=== PATIENT | female | born 1955 | race Caucasian/White ===

== ENCOUNTER 2023-02-21 07:59 | Inpatient (IN) ==
[2023-02-21] MEDS ORDERED: IOVERSOL 350 MG 125mL Prefilled Syringe IV ONE (08:15)
--- NOTE | 2023-02-21 08:22 | Emergency Department Note ---
Impression & Plan Seizure, End-stage renal disease on hemodialysis, Chronic respiratory failure with hypoxia, Acute metabolic encephalopathy, Stroke-like symptoms, Paroxysmal A-fib ED Provider Note NAME: JOVANI JOSEPH AGE: 67 SEX: F ARRIVES VIA: Ambulance INFORMANT: Patient ED PROVIDER(S): Stephen Villanueva MD CHIEF COMPLAINT: Strokelike symptoms PLAN: Disposition: Admit MEDICAL DECISION MAKING: The patient is a 67-year-old woman with a past medical history of end-stage renal disease on hemodialysis, history of paroxysmal atrial fibrillation not on anticoagulation secondary to history of GI bleeding per records, COPD, JULIETH, chronic respiratory failure with hypoxia who presents to the emergency department via EMS for stroke alert for acute onset change in mental status at her rehab facility at [facility]. The patient presents in the setting of having been admitted and discharged from [facility] for treatment of pneumonia. The patient had been progressing well and was considered for discharge from her rehab soon. I had discussed the case with [facility] provider Dr. Bustamante and staff had reported that the patient was last known well at approximately 5 AM when per forming morning rounds and took her medication but upon OT/PT evaluation at 0610 they noticed that the patient had slurred speech and generalized weakness from her baseline. He confirmed that the patient is not on chronic anticoagulation for atrial fibrillation but was receiving DVT prophylaxis with subcu heparin and did receive her dose this morning. Given the patient's acute neurologic change, stroke alert was activated prior to arrival. Staff report that the patient's baseline is normally alert and oriented able to converse normally but is always a max assist out of bed and with ADLs. Patient has not missed dialysis but was due to have dialysis today. Upon EMS arrival it was believed that the patient's neurologic status had improved/resolved but then a seizure like episode occurred lasting approximately 1 minute after which she appeared somnolent but was awake. Patient arrived to the emergency department was taken immediately to CT per stroke alert protocols and CT of the head and CTA of the head and neck were performed. The patient arrived to the critical care bay, with axillary temperature 35.9, RR mid 20s, BP 140s/80s, O2 98% on 2L NC. The patient was was awake but altered exhibiting both expressive and receptive aphasia and did not appear to be able to follow commands. She would repeatedly attempt to say her name to this provider's questions. She exhibits 0-1/5 strength of left upper extremity with 2/5 strength of right upper extremity and 1/5 strength of bila teral lower extremities. She will direct her gaze appropriately when spoken to. The patient's case was reviewed with [facility] telestroke neurology, Dr Brito. However just prior to telestroke evaluation via telestroke terminal the patient did have a 1 minute tonic-clonic seizure-like episode where O2 saturation transiently decreased to the 70s improving to 90s with 100% O2 via nonrebreather. She was given 1 mg of IV Ativan and 2 g of IV Keppra load ordered and administered. CT of the head negative for ICH or ischemia. Motion degradation is noted. High-grade stenosis of the cavernous segment of left ICA within the left petrous segment is seen. Dr. Castillo was able to visualize the patient following her seizure-like episode the limited given increased somnolence related to postictal state and administration of IV Ativan. Appreciate recommendations and agrees with Keppra load. Further recommends MRI of the brain in addition to lumbar puncture given the patient's recent hospitalization for pneumonia. Given the patient's morbidly obese body habitus in the setting of concern for bleeding risk related to her end-stage renal disease on hemodialysis and having received prophylactic heparin this morning ED LP deferred, as patient would benefit from fluoroscopic LP with radiology in the setting. Otherwise, blood cultures obtained and pending. EKG without overt acute ischemia and appears similar to prior from [facility] records. Chest x-ray with vascular congestion on initial history of thickening. WBC 16.7K with neutrophil predominance though no left shift. H/H 11/35.6 without recent values for comparison. Platelets within normal limits. ABG was obtained after the patient's seizure emergency department and demonstrates a PCO2 of 54 with a pH of 7.32. PO2 on 2 L nasal cannula was 76. Chemistry without metabolic acidosis with bicarbonate of 29. Creatinine 4.5 in the se tting of patient's known end-stage renal disease on hemodialysis. Potassium 5.3. Initial lactic acid 2.7. High-sensitivity troponin 16.2, nonspecific. Procalcitonin is nonelevated. TSH within normal limits. Case was discussed with Fouzia Montoya, [facility] PAC, with Dr. Oleary, [facility] hospitalist who will evaluate the patient for admission. Of note, initial axillary temperature on arrival was 35.9 however upon repeat with rectal temperature again 35.9, hypothermic, and so nursing instructed to place warming blanket/bear hugger. On my reevaluation the patient remains somnolent however the patient did open her eyes to voice when her name was called and replied, "yeah". When asked to name she did say, "Jovani", but again closes her eyes. Admitting team updated. Further management per admitting team. Triage Nursing notes reviewed and agree them. Prior/outside medical records reviewed Vital Signs: reviewed Differential diagnosis: Infection, dehydration, metabolic abnormality, hypo/hyperglycemia, electrolyte disturbance, anemia, hypoxia, cardiac sources, intracerebral event, toxicologic, neurologic, as well as other pathologies. ER treatment provided: See below. Diagnostics interpreted by me: Cardiac Monitoring: An order for continuous cardiac monitoring was placed and demonstrated NSR, 83 bpm, no ectopy. Laboratory studies: See below Imaging studies: See below Consultation(s): Dr. Brito, [facility] telestroke neurology. Fouzia Montoya [facility] PAC, with Dr. Oleary, [facility] hospitalist HPI: The patient is a 67-year-old woman with a past medical history of end-stage renal disease on hemodialysis, history of paroxysmal atrial fibrillation not on anticoagulation secondary to history of GI bleeding per records, COPD, JULIETH, chronic respiratory failure with hypoxia who presents to the emergency department via EMS for stroke alert for acute onset change in mental status at her rehab facility at [facility]. The patient presents in the setting of having been admitted and discharged from [facility] [address] for treatment of pneumonia. The patient had been progressing well and was considered for discharge from her rehab soon. I had discussed the case with [facility] provider Dr. Bustamante and staff had reported that the patient was last known well at approximately 5 AM when performing morning rounds and took her medication but upon OT/PT evaluation at 0610 they noticed that the patient had slurred speech and generalized weakness from her baseline. He confirmed that the patient is not on chronic anticoagu lation for atrial fibrillation but was receiving DVT prophylaxis with subcu heparin and did receive her dose this morning. Given the patient's acute neurologic change, stroke alert was activated prior to arrival. Staff report that the patient's baseline is normally alert and oriented able to converse normally but is always a max assist out of bed and with ADLs. Patient has not missed dialysis but was due to have dialysis today. Upon EMS arrival it was believed that the patient's neurologic status had improved/resolved but then a seizure like episode occurred lasting approximately 1 minute after which she appeared somnolent but was awake. ROS: See above HPI for pertinent positives & negatives. A total of 10 systems reviewed and were otherwise negative. VITALS:See Below PHYSICAL EXAMINATION: GENERAL: Awake, alert, ill-appearing HENT: Normocephalic, atraumatic. Oropharynx unremarkable. EYES: Normal conjunctiva. Sclera non-icteric. NECK: Supple. No nuchal rigidity. FROM. No JVD. RESPIRATORY: Diminished at bases with underlying wheeze. CARDIAC: Regular rate, normal rhythm. Extremities warm and well perfused. Pulses equal. LUE AV fistula with palpable thrill. ABDOMEN: Soft, non-distended. No tenderness to palpation. No rebound or guarding. No masses. RECTAL: Deferred. MUSCULOSKELETAL: Chest examination reveals no tenderness. The back is symmetrical on inspection without obvious abnormality. There is no CVA tenderness to palpation. No joint edema. LOWER EXTREMITIES: Calves are equal size bilaterally and non-tender. 2+ BLE edema. No discoloration. NEURO: Awake but altered exhibiting both expressive and receptive aphasia and did not appear to be able to follow commands. She would repeatedly attempt to say her name to this provider's questions. She exhibits 0-1/5 strength of left upper extremity with 2/5 strength of right upper extremity and 1/5 strength of bilateral lower extremities. She will direct her gaze appropriately when spoken to. SKIN: No rash or jaundice noted. Diffuse areas of ecchymosis of bilateral upper extremities. ED COURSE: Critical Care: I have personally spent greater than 55 minutes of critical care time in the direct management of this patient. This includes bedside care, interpretation of diagnostic studies, and testing, discussion with consultants, patient, and family members, and other required patient management activities. This 55 minutes is in excess of all separately billable procedures. Stephen Villanueva MD Past Med/Surg History Medical History Anemia Anemia of chronic disease Asthma not well controlled per pt Atrial fibrillation dx 8-10 yrs ago > follows with Cardio at [facility] [address] > no pacer > med controlled > takes Heparin during dialysis only AV fistula left arm C. difficile diarrhea Calciphylaxis left breast since 08/2021 following with [facility]. patient is to f radhajosselyn up with a surgeon at [facility] 06/20/22. Chronic obstructive pulmonary disease Chronic respiratory failure with hypoxia COPD (chronic obstructive pulmonary disease) Diabetes mellitus, type 2 Diabetic neuropathy Diabetic retinopathy Dialysis patient S/M/W/F > home dialysis Dislocated shoulder right > has had for approx 3 yrs, cannot have general anesthesia due to respiratory conditions Dislocation of right shoulder joint DM II (diabetes mellitus, type II), controlled End-stage renal disease on hemodialysis ESRD (end stage renal disease) follows with Dr. Sanchez with [facility], has been on hemodialysis approx 5 years Generalized weakness GERD (gastroesophageal reflux disease) GERD (gastroesophageal reflux disease) History of anesthesia reaction cannot have general anesthesia due to respiratory conditions History of blood clots left foot > approx 3 yrs ago > no known cause History of COVID-19 January 18, 2022 > tested at [facility] > breathing difficulty, pulse ox 72%, > hospitalized for 5 days > no residual effects History of GI bleed approx 1 year ago History of hypotension midodrine BID. HLD (hyperlipidemia) Humeral surgical neck fracture Hx of Clostridium difficile infection over 3 yrs ago [facility] Hyperlipidemia IBS (irritable bowel syndrome) Iron deficiency Obesity hypoventilation syndrome On home oxygen therapy 4 LPM continuous JULIETH (obstructive sleep apnea) Paroxysmal A-fib Pericardial effusion hx of approx 1 year ago, had drain, [place] Peripheral vascular disease Restrictive lung disease Seizure Sleep apnea Bi Pap TIA (transient ischemic attack) hx of approx 15 yrs ago > no residual effects Surgical History Amputation of left great toe AVF (arteriovenous fistula) H/O Spinal surgery History of arthroscopy left knee History of bilateral tubal ligation History of bronchoscopy History of carpal tunnel release right History of cataract surgery left History of colonoscopy History of endoscopic sinus surgery History of esophagogastroduodenoscopy (EGD) History of lumbar surgery Hx of colonoscopy Hx of sinus surgery Hx of tubal ligation Family History Mother Diabetes Father Diabetes Other Family history non-contributory No family history of adverse response to anesthesia Social History Smoking Status: Former smoker Tobacco Type: Cigarettes Cigarettes Per Day: 6 cigs per day; Second Hand Exposure: No; Do You Dip or Chew Tobacco: No; Hx Alcohol Use: No Hx Substance Use: No Preferred Language: Bolivian Communication Ability: Effective Help Desk Technician Required: No Beliefs That Will Affect Care: None Current Living Situation: Spouse Feels Safe at Home: Yes Assistive Devices: BiPap, Denture - Upper, Glasses, Oxygen - Continuous and Wheelchair Allergies Allergies Allergy/AdvReac Type Severity Reaction Status Date / Time moxifloxacin [From Avelox] Allergy Severe Shakiness Verified 02/21/23 15:40 lisinopril Allergy Intermediate facial Verified 02/21/23 15:40 swelling metformin [From Glucophage] Allergy Intermediate Rash Verified 02/21/23 15:40 avelox Allergy Unknown Uncoded 02/21/23 15:40 glucophage Allergy Unknown Uncoded 02/21/23 15:40 lisinopril Allergy Unknown Uncoded 02/21/23 15:40 Home Meds Home Medications Medication Instructions Recorded Confirmed albuterol sulfate 2.5 mg/0.5 mL 2.5 mg inhalation TID PRN Wheezing 04/17/22 08/03/22 solution for nebulization benzonatate 100 mg capsule 100 mg PO BID 04/17/22 08/03/22 levalbuterol tartrate 45 2 inh inhalation Q6H 04/17/22 08/03/22 mcg/actuation aerosol inhaler (Xopenex HFA) rosuvastatin 10 mg tablet (Crestor) 10 mg PO PM 04/17/22 08/03/22 vitamin B complex and vitamin C 1 cap PO QAM 04/17/22 08/03/22 no.20-folic acid 1 mg capsule Milk of Magnesia 30 ml PO DAILY PRN Constipation 02/21/23 02/21/23 Saccharomyces boulardii 250 mg 250 mg PO BID 02/21/23 02/21/23 capsule acetylcysteine 600 mg capsule 600 mg PO DAILY 02/21/23 02/21/23 allopurinol 100 mg tablet 100 mg PO Q2D 02/21/23 02/21/23 (Zyloprim) atorvastatin 20 mg tablet 20 mg PO PM 02/21/23 02/21/23 bisacodyl 10 mg rectal suppository 10 mg DC DAILY PRN Constipation 02/21/23 02/21/23 calcitriol 0.25 mcg capsule 0.25 mcg PO UD 02/21/23 02/21/23 darbepoetin ulises in polysorbat 40 40 mcg subcut Q7D 02/21/23 02/21/23 mcg/0.4 mL in polysorbate injection syringe dextrose 50 % in water (D50W) 0 mg IV DIRECTED PRN 02/21/23 02/21/23 Hypoglycemia dextrose 50 % in water (D50W) 25 ml IV DIRECTED PRN 02/21/23 02/21/23 Hypoglycemia dextrose 50 % in water (D50W) 50 ml IV DIRECTED PRN 02/21/23 02/21/23 Hypoglycemia docusate sodium 100 mg capsule 100 mg PO BID 02/21/23 02/21/23 doxycycline hyclate 100 mg capsule 100 mg PO BID 02/21/23 02/21/23 dulaglutide 0.75 mg/0.5 mL 0.75 mg subcut WK 02/21/23 02/21/23 subcutaneous pen injector ([facility]) fluticasone fur. 100 mcg-umeclid 1 inh inhalation DAILY 02/21/23 02/21/23 62.5 mcg-vilant 25 mcg inhalat.powder (Trelegy Ellipta) glucagon 1 mg INJ DIRECTED PRN 02/21/23 02/21/23 Hypoglycemia heparin (porcine) 7,500 unit/mL 7,500 unit Q12H 02/21/23 02/21/23 injection syringe insulin glargine 100 unit/mL 12 unit subcut QAM 02/21/23 02/21/23 subcutaneous solution (Lantus U-100 Insulin) loperamide 2 mg capsule 4 mg PO BID PRN Loose Stool 02/21/23 02/21/23 metoprolol succinate 25 mg 12.5 mg PO Q12H 02/21/23 02/21/23 tablet,extended release 24 hr midodrine 5 mg tablet 10 mg PO TID 02/21/23 02/21/23 montelukast 10 mg tablet 10 mg PO DAILY 02/21/23 02/21/23 multivitamin 1 tab PO DAILY 02/21/23 02/21/23 ondansetron 4 mg disintegrating 4 mg PO Q4H PRN NAUSEA 02/21/23 02/21/23 tablet pantoprazole 20 mg tablet,delayed 20 mg PO DAILY 02/21/23 02/21/23 release polyethylene glycol 3350 17 17 g PO DIRECTED PRN CONSTI 02/21/23 02/21/23 gram/dose oral powder (Miralax) prednisone 10 mg tablet 10 mg PO DAILY 02/21/23 02/21/23 pregabalin 25 mg capsule 25 mg PO DAILY 02/21/23 02/21/23 propafenone 150 mg tablet 150 mg PO Q12H 02/21/23 02/21/23 roflumilast 500 mcg tablet 500 mcg PO DAILY 02/21/23 02/21/23 ropinirole 0.25 mg tablet 0.25 mg PO BID 02/21/23 02/21/23 sennosides 8.6 mg-docusate sodium 1 tab PO USEASDIRECTD PRN 02/21/23 02/21/23 50 mg tablet (Senokot-S) Constipation sodium chloride 0.9 % 0 ml IV DIRECTED 02/21/23 02/21/23 sodium chloride 0.9 % 0 ml IV DIRECTED 02/21/23 02/21/23 sodium chloride 0.9 % 1,000 ml IV DAILY PRN OTHER 02/21/23 02/21/23 sodium phosphates 19 gram-7 133 ml DC DAILY PRN Constipation 02/21/23 02/21/23 gram/118 mL enema (Fleet Enema) vancomycin 125 mg capsule 125 mg PO DAILY 02/21/23 02/21/23 Results & Data (ED) Vital Signs Vital Signs - 24 hr 02/21/23 08:24 02/21/23 07:47 02/21/23 08:35 Temperature 35.9 C L Temperature Source Axillary Pulse Rate 83 88 Pulse Rate from SpO2 Sensor Respiratory Rate 26 H Blood Pressure 149/84 H Blood Pressure Mean 105 Pulse Oximetry 98 56 L Oxygen Delivery Method Nasal Cannula Nasal Cannula Non-rebreather Oxygen Flow Rate 2 2 Sepsis Recent Fever Within 48 Hours No Sepsis New/Unexplained Change in Mental Status No Sepsis Action Taken by Nursing Physician Notified Oxygen Flow Rate - Titration 15 Pulse Oximetry Post Tiitration 98 02/21/23 09:25 02/21/23 08:19 02/21/23 08:30 Temperature Temperature Source Pulse Rate 84 80 Pulse Rate from SpO2 Sensor 85 80 Respiratory Rate 19 24 Blood Pressure Blood Pressure Mean Pulse Oximetry 100 95 96 Oxygen Delivery Method Nasal Cannula Non-rebreather Oxygen Flow Rate 15 2 2 Sepsis Recent Fever Within 48 Hours Sepsis New/Unexplained Change in Mental Status Sepsis Action Taken by Nursing Oxygen Flow Rate - Titration 6 Pulse Oximetry Post Tiitration 96 02/21/23 08:44 02/21/23 08:44 02/21/23 08:45 Temperature Temperature Source Pulse Rate 109 H 97 H Pulse Rate from SpO2 Sensor 109 H 108 H Respiratory Rate 21 18 Blood Pressure 161/88 H Blood Pressure Mean 112 Pulse Oximetry 98 99 Oxygen Delivery Method Oxygen Flow Rate 15 15 Sepsis Recent Fever Within 48 Hours Sepsis New/Unexplained Change in Mental Status Sepsis Action Taken by Nursing Oxygen Flow Rate - Titration Pulse Oximetry Post Tiitration 02/21/23 09:00 02/21/23 09:01 02/21/23 09:01 Temperature Temperature Source Pulse Rate 92 H 88 Pulse Rate from SpO2 Sensor 92 H 87 Respiratory Rate 18 16 Blood Pressure 140/67 Blood Pressure Mean 91 Pulse Oximetry 100 100 Oxygen Delivery Method Oxygen Flow Rate 15 15 Sepsis Recent Fever Within 48 Hours Sepsis New/Unexplained Change in Mental Status Sepsis Action Taken by Nursing Oxygen Flow Rate - Titration Pulse Oximetry Post Tiitration 02/21/23 09:15 02/21/23 09:15 02/21/23 09:30 Temperature Temperature Source Pulse Rate 84 Pulse Rate from SpO2 Sensor 84 Respiratory Rate 16 Blood Pressure 151/58 H 153/53 H Blood Pressure Mean 89 86 Pulse Oximetry 100 Oxygen Delivery Method Oxygen Flow Rate 6 Sepsis Recent Fever Within 48 Hours Sepsis New/Unexplained Change in Mental Status Sepsis Action Taken by Nursing Oxygen Flow Rate - Titration Pulse Oximetry Post Tiitration 02/21/23 09:30 02/21/23 09:45 02/21/23 09:45 Temperature Temperature Source Pulse Rate 83 85 Pulse Rate from SpO2 Sensor 83 87 Respiratory Rate 16 17 Blood Pressure 107/72 Blood Pressure Mean 83 Pulse Oximetry 100 97 Oxygen Delivery Method Oxygen Flow Rate 2 2 Sepsis Recent Fever Within 48 Hours Sepsis New/Unexplained Change in Mental Status Sepsis Action Taken by Nursing Oxygen Flow Rate - Titration Pulse Oximetry Post Tiitration 02/21/23 10:00 02/21/23 10:01 02/21/23 10:01 Temperature Temperature Source Pulse Rate 84 86 Pulse Rate from SpO2 Sensor 84 87 Respiratory Rate 15 17 Blood Pressure 163/66 H Blood Pressure Mean 98 Pulse Oximetry 98 94 Oxygen Delivery Method Oxygen Flow Rate 2 2 Sepsis Recent Fever Within 48 Hours Sepsis New/Unexplained Change in Mental Status Sepsis Action Taken by Nursing Oxygen Flow Rate - Titration Pulse Oximetry Post Tiitration Laboratory Data Attestation: I reviewed the patient's lab results. 02/21/23 17:08 02/21/23 17:08 Lab Results 02/21/23 02/21/23 02/21/23 Range/Units 08:16 08:16 08:16 WBC 16.71 H (4.8-10.8) K/ul RBC 3.83 L (4.20-5.40) M/uL Hgb 11.0 L (12.0-16.0) g/dl POC Hgb (12.0-16.0) g/dl Hct 35.6 L (37.0-47.0) % POC Hct (37-47) % MCV 93.0 (80.0-100.0) fL MCH 28.7 (25.0-34.0) pg MCHC 30.9 L (32.0-36.0) g/dL RDW Std Deviation 63.8 H (36.4-46.3) fL RDW Coeff of Sagrario 19.0 H (11.5-14.5) % Plt Count 202 (130-400) K/uL MPV 11.6 (9.4-12.4) fL Immature Gran % (Auto) 0.9 % Neut % (Auto) 71.5 % Lymph % (Auto) 20.2 % Ford % (Auto) 6.8 % Eos % (Auto) 0.4 % Baso % (Auto) 0.2 % Neut # (Auto) 11.96 H (1.40-6.50) K/uL Lymph # (Auto) 3.37 (1.2-3.4) K/uL Ford # (Auto) 1.13 H (0.11-0.59) K/uL Eos # (Auto) 0.07 (0-0.50) K/uL Baso # (Auto) 0.03 (0-0.2) K/uL Immature Gran # (Auto) 0.15 (0.01-0.20) K/uL PT 11.1 (9.0-12.0) Seconds INR 1.0 (0.9-1.1) APTT 35.6 H (21.0-31.0) Seconds PTT Ratio 1.3 ABG pH (7.35-7.45) ABG pCO2 (35-46) mmHg ABG pO2 (80-95) mmHg ABG HCO3 (19-24) mmol/L ABG O2 Saturation (90-95) % ABG Base Excess (-9-1.8) mEq/L Dmitry Test (Pos) Oxygen Given POC Sodium (135-144) mmol/L Sodium 136 (136-145) mmol/L POC Potassium (3.3-5.0) mmol/L Potassium 5.3 H (3.5-5.1) mmol/L POC Chloride (101-112) mmol/L Chloride 98 (98-107) mmol/L Carbon Dioxide 29 (21-32) mmol/L POC Total CO2 (24-31) mmol/L Anion Gap 9 (3-11) POC Anion Gap (16-25) mmol/L POC BUN (7-18) mg/dl BUN 33 H (6-23) mg/dl Creatinine 4.55 H* (0.6-1.2) mg/dl POC Creatinine (0.6-1.3) mg/dl Est Cr Clr Drug Dosing Not Reportable Est GFR ( Amer) 10.8 ml/min Est GFR (Non-Af Amer) 9.3 ml/min BUN/Creatinine Ratio 7.3 L (10-20) Glucose 108 H (70-99(Fasting)) mg/dl POC Glucose (other) (70-99) mg/dl Lactate (0.4-2.0) mmol/L Calcium 9.4 (8.6-10.3) mg/dl POC Ioniz Calcium Leann (1.12-1.32) mmol/l Phosphorus 5.3 H (2.5-4.9) mg/dl Magnesium 1.4 L (1.7-2.4) mg/dl Total Bilirubin 0.6 (0.2-1.0) mg/dl AST 15 (13-39) U/L ALT 16 (7-52) U/L Alkaline Phosphatase 60 (34-104) U/L Troponin I High Sens 16.2 H (0-14) pg/ml Total Protein 5.4 L (6.0-8.3) gm/dl Albumin 3.4 (3.4-5.0) gm/dl Globulin 2.0 L (2.5-4.0) gm/dl Albumin/Globulin Ratio 1.7 (0.9-2) Vitamin B12 (180-914) pg/ml Procalcitonin (0-0.5) ng/ml TSH (0.300-4.500) uIu/ml Lyme Disease IgG Ab (Negative) Lyme Disease IgM Ab (Negative) 02/21/23 02/21/23 02/21/23 Range/Units 08:32 08:32 08:33 WBC (4.8-10.8) K/ul RBC (4.20-5.40) M/uL Hgb (12.0-16.0) g/dl POC Hgb 12.2 (12.0-16.0) g/dl Hct (37.0-47.0) % POC Hct 36 L (37-47) % MCV (80.0-100.0) fL MCH (25.0-34.0) pg MCHC (32.0-36.0) g/dL RDW Std Deviation (36.4-46.3) fL RDW Coeff of Sagrario (11.5-14.5) % Plt Count (130-400) K/uL MPV (9.4-12.4) fL Immature Gran % (Auto) % Neut % (Auto) % Lymph % (Auto) % Ford % (Auto) % Eos % (Auto) % Baso % (Auto) % Neut # (Auto) (1.40-6.50) K/uL Lymph # (Auto) (1.2-3.4) K/uL Ford # (Auto) (0.11-0.59) K/uL Eos # (Auto) (0-0.50) K/uL Baso # (Auto) (0-0.2) K/uL Immature Gran # (Auto) (0.01-0.20) K/uL PT (9.0-12.0) Seconds INR (0.9-1.1) APTT (21.0-31.0) Seconds PTT Ratio ABG pH (7.35-7.45) ABG pCO2 (35-46) mmHg ABG pO2 (80-95) mmHg ABG HCO3 (19-24) mmol/L ABG O2 Saturation (90-95) % ABG Base Excess (-9-1.8) mEq/L Dmitry Test (Pos) Oxygen Given POC Sodium 133 L (135-144) mmol/L Sodium (136-145) mmol/L POC Potassium 5.6 H (3.3-5.0) mmol/L Potassium (3.5-5.1) mmol/L POC Chloride 99 L (101-112) mmol/L Chloride (98-107) mmol/L Carbon Dioxide (21-32) mmol/L POC Total CO2 26 (24-31) mmol/L Anion Gap (3-11) POC Anion Gap 14.0 L (16-25) mmol/L POC BUN 36 H (7-18) mg/dl BUN (6-23) mg/dl Creatinine (0.6-1.2) mg/dl POC Creatinine 4.7 H* (0.6-1.3) mg/dl Est Cr Clr Drug Dosing Est GFR ( Amer) ml/min Est GFR (Non-Af Amer) ml/min BUN/Creatinine Ratio (10-20) Glucose (70-99(Fasting)) mg/dl POC Glucose (other) 101 H (70-99) mg/dl Lactate (0.4-2.0) mmol/L Calcium (8.6-10.3) mg/dl POC Ioniz Calcium Leann 1.09 L (1.12-1.32) mmol/l Phosphorus (2.5-4.9) mg/dl Magnesium (1.7-2.4) mg/dl Total Bilirubin (0.2-1.0) mg/dl AST (13-39) U/L ALT (7-52) U/L Alkaline Phosphatase (34-104) U/L Troponin I High Sens (0-14) pg/ml Total Protein (6.0-8.3) gm/dl Albumin (3.4-5.0) gm/dl Globulin (2.5-4.0) gm/dl Albumin/Globulin Ratio (0.9-2) Vitamin B12 (180-914) pg/ml Procalcitonin 0.32 (0-0.5) ng/ml TSH (0.300-4.500) uIu/ml Lyme Disease IgG Ab Negative Cancelled (Negative) Lyme Disease IgM Ab Negative Cancelled (Negative) 02/21/23 02/21/23 02/21/23 Range/Units 08:51 08:51 09:51 WBC (4.8-10.8) K/ul RBC (4.20-5.40) M/uL Hgb (12.0-16.0) g/dl POC Hgb (12.0-16.0) g/dl Hct (37.0-47.0) % POC Hct (37-47) % MCV (80.0-100.0) fL MCH (25.0-34.0) pg MCHC (32.0-36.0) g/dL RDW Std Deviation (36.4-46.3) fL RDW Coeff of Sagrario (11.5-14.5) % Plt Count (130-400) K/uL MPV (9.4-12.4) fL Immature Gran % (Auto) % Neut % (Auto) % Lymph % (Auto) % Ford % (Auto) % Eos % (Auto) % Baso % (Auto) % Neut # (Auto) (1.40-6.50) K/uL Lymph # (Auto) (1.2-3.4) K/uL Ford # (Auto) (0.11-0.59) K/uL Eos # (Auto) (0-0.50) K/uL Baso # (Auto) (0-0.2) K/uL Immature Gran # (Auto) (0.01-0.20) K/uL PT (9.0-12.0) Seconds INR (0.9-1.1) APTT (21.0-31.0) Seconds PTT Ratio ABG pH (7.35-7.45) ABG pCO2 (35-46) mmHg ABG pO2 (80-95) mmHg ABG HCO3 (19-24) mmol/L ABG O2 Saturation (90-95) % ABG Base Excess (-9-1.8) mEq/L Dmitry Test (Pos) Oxygen Given POC Sodium (135-144) mmol/L Sodium (136-145) mmol/L POC Potassium (3.3-5.0) mmol/L Potassium (3.5-5.1) mmol/L POC Chloride (101-112) mmol/L Chloride (98-107) mmol/L Carbon Dioxide (21-32) mmol/L POC Total CO2 (24-31) mmol/L Anion Gap (3-11) POC Anion Gap (16-25) mmol/L POC BUN (7-18) mg/dl BUN (6-23) mg/dl Creatinine (0.6-1.2) mg/dl POC Creatinine (0.6-1.3) mg/dl Est Cr Clr Drug Dosing Est GFR ( Amer) ml/min Est GFR (Non-Af Amer) ml/min BUN/Creatinine Ratio (10-20) Glucose (70-99(Fasting)) mg/dl POC Glucose (other) (70-99) mg/dl Lactate 2.7 H* (0.4-2.0) mmol/L Calcium (8.6-10.3) mg/dl POC Ioniz Calcium Leann (1.12-1.32) mmol/l Phosphorus (2.5-4.9) mg/dl Magnesium (1.7-2.4) mg/dl Total Bilirubin (0.2-1.0) mg/dl AST (13-39) U/L ALT (7-52) U/L Alkaline Phosphatase (34-104) U/L Troponin I High Sens (0-14) pg/ml Total Protein (6.0-8.3) gm/dl Albumin (3.4-5.0) gm/dl Globulin (2.5-4.0) gm/dl Albumin/Globulin Ratio (0.9-2) Vitamin B12 300 (180-914) pg/ml Procalcitonin (0-0.5) ng/ml TSH 1.168 (0.300-4.500) uIu/ml Lyme Disease IgG Ab (Negative) Lyme Disease IgM Ab (Negative) 02/21/23 Range/Units 09:58 WBC (4.8-10.8) K/ul RBC (4.20-5.40) M/uL Hgb (12.0-16.0) g/dl POC Hgb (12.0-16.0) g/dl Hct (37.0-47.0) % POC Hct (37-47) % MCV (80.0-100.0) fL MCH (25.0-34.0) pg MCHC (32.0-36.0) g/dL RDW Std Deviation (36.4-46.3) fL RDW Coeff of Sagrario (11.5-14.5) % Plt Count (130-400) K/uL MPV (9.4-12.4) fL Immature Gran % (Auto) % Neut % (Auto) % Lymph % (Auto) % Ford % (Auto) % Eos % (Auto) % Baso % (Auto) % Neut # (Auto) (1.40-6.50) K/uL Lymph # (Auto) (1.2-3.4) K/uL Ford # (Auto) (0.11-0.59) K/uL Eos # (Auto) (0-0.50) K/uL Baso # (Auto) (0-0.2) K/uL Immature Gran # (Auto) (0.01-0.20) K/uL PT (9.0-12.0) Seconds INR (0.9-1.1) APTT (21.0-31.0) Seconds PTT Ratio ABG pH 7.32 L (7.35-7.45) ABG pCO2 54 H (35-46) mmHg ABG pO2 76 L (80-95) mmHg ABG HCO3 28 H (19-24) mmol/L ABG O2 Saturation 94.7 (90-95) % ABG Base Excess 0.7 (-9-1.8) mEq/L Dmitry Test POS (Pos) Oxygen Given 2 L POC Sodium (135-144) mmol/L Sodium (136-145) mmol/L POC Potassium (3.3-5.0) mmol/L Potassium (3.5-5.1) mmol/L POC Chloride (101-112) mmol/L Chloride (98-107) mmol/L Carbon Dioxide (21-32) mmol/L POC Total CO2 (24-31) mmol/L Anion Gap (3-11) POC Anion Gap (16-25) mmol/L POC BUN (7-18) mg/dl BUN (6-23) mg/dl Creatinine (0.6-1.2) mg/dl POC Creatinine (0.6-1.3) mg/dl Est Cr Clr Drug Dosing Est GFR ( Amer) ml/min Est GFR (Non-Af Amer) ml/min BUN/Creatinine Ratio (10-20) Glucose (70-99(Fasting)) mg/dl POC Glucose (other) (70-99) mg/dl Lactate (0.4-2.0) mmol/L Calcium (8.6-10.3) mg/dl POC Ioniz Calcium Leann (1.12-1.32) mmol/l Phosphorus (2.5-4.9) mg/dl Magnesium (1.7-2.4) mg/dl Total Bilirubin (0.2-1.0) mg/dl AST (13-39) U/L ALT (7-52) U/L Alkaline Phosphatase (34-104) U/L Troponin I High Sens (0-14) pg/ml Total Protein (6.0-8.3) gm/dl Albumin (3.4-5.0) gm/dl Globulin (2.5-4.0) gm/dl Albumin/Globulin Ratio (0.9-2) Vitamin B12 (180-914) pg/ml Procalcitonin (0-0.5) ng/ml TSH (0.300-4.500) uIu/ml Lyme Disease IgG Ab (Negative) Lyme Disease IgM Ab (Negative) Administered Medications Levetiracetam 1,000 mg/ Sodium (Chloride) 110 mls @ 440 mls/hr IV DAILY WESLEY Stop: 03/23/23 19:59 Last Infusion: 02/21/23 20:33 Dose: 0 mls/hr Documented By: Admin: 02/21/23 19:46 Dose: 440 mls/hr Documented By: HFS Ceftriaxone Sodium 2,000 mg/ (Dextrose) 70 mls @ 100 mls/hr IV Q12H WESLEY; Protocol Stop: 03/03/23 11:59 Last Infusion: 02/21/23 16:16 Dose: 0 mls/hr Documented By: Admin: 02/21/23 14:38 Dose: 100 mls/hr Documented By: KTS Insulin Aspart (Insulin Aspart Per Unit Charge) 0 units SC Q6 WESLEY Stop: 03/23/23 14:27 Last Admin: 02/21/23 18:36 Dose: Not Given Documented By: Admin: 02/21/23 16:47 Dose: Not Given Documented By: BIRDIE Co-signed By: JACKIE Metoprolol Tartrate (Metoprolol Tartrate 1 Mg/Ml Vial) 2.5 mg IV Q6 WESLEY Stop: 03/23/23 17:59 Last Admin: 02/21/23 18:40 Dose: 2.5 mg Documented By: AUSTEN Vancomycin HCl (Vancomycin Hcl 500 Mg/100 Ml Enema) 500 mg DC DAILY WESLEY Stop: 03/03/23 15:59 Last Admin: 02/21/23 17:16 Dose: Not Given Documented By: AUSTEN Discontinued Medications Dextrose (Dextrose 50% 50 Ml Syringe) 50 ml IV NOW ONE Stop: 02/21/23 20:47 Last Admin: 02/21/23 21:09 Dose: 50 ml Documented By: KILLIAN Levetiracetam 2,000 mg/ Sodium (Chloride) 270 mls @ 999 mls/hr IV NOW STA Stop: 02/21/23 09:06 Last Infusion: 02/21/23 09:45 Dose: 0 mls/hr Documented By: Admin: 02/21/23 09:12 Dose: 999 mls/hr Documented By: MANJINDER Magnesium Sulfate/Dextrose (Magnesium Sulfate / D5w) 1 gm in 100 mls @ 50 mls/hr IV ONE ONE Stop: 02/21/23 13:03 Last Infusion: 02/21/23 17:51 Dose: 0 mls/hr Documented By: Admin: 02/21/23 16:15 Dose: 50 mls/hr Documented By: AUSTEN Vancomycin HCl 2,000 mg/ (Sodium Chloride) 540 mls @ 200 mls/hr IV NOW ONE Stop: 02/21/23 15:37 Last Admin: 02/21/23 16:16 Dose: 200 mls/hr Documented By: AUSTEN Ampicillin Sodium 2,000 mg/ (Sodium Chloride) 100 mls @ 200 mls/hr IV Q12H WESLEY Stop: 03/03/23 12:29 Last Infusion: 02/21/23 16:16 Dose: 0 mls/hr Documented By: Admin: 02/21/23 14:38 Dose: 200 mls/hr Documented By: AUSTEN Ampicillin Sodium 2,000 mg/ (Sodium Chloride) 100 mls @ 200 mls/hr IV NOW STA Stop: 02/21/23 13:26 Last Admin: 02/21/23 14:39 Dose: Not Given Documented By: AUSTEN Magnesium Sulfate/Dextrose (Magnesium Sulfate / D5w) 1 gm in 100 mls @ 50 mls/hr IV Q2H WESLEY Stop: 02/21/23 17:29 Last Infusion: 02/21/23 20:33 Dose: 0 mls/hr Documented By: Admin: 02/21/23 18:32 Dose: 50 mls/hr Documented By: Infusion: 02/21/23 18:31 Dose: 0 mls/hr Documented By: Admin: 02/21/23 17:16 Dose: 50 mls/hr Documented By: AUSTEN Acyclovir Sodium 380 mg/ (Dextrose) 107.6 mls @ 100 mls/hr IV Q24H WESLEY; Protoco l Stop: 03/03/23 15:59 Last Infusion: 02/21/23 17:15 Dose: 0 mls/hr Documented By: Admin: 02/21/23 16:42 Dose: 100 mls/hr Documented By: AM Hydrocortisone Sodium (Succinate 100 mg/ Syringe) 2 mls @ 4 mls/min IV Q8H WESLEY Stop: 03/23/23 15:14 Last Admin: 02/21/23 16:42 Dose: 4 mls/min Documented By: AM Insulin Human Regular 10 units (/ Syringe) 10 mls @ 5 mls/min IV ONE ONE Stop: 02/21/23 21:01 Last Admin: 02/21/23 21:09 Dose: 5 mls/min Documented By: HFS Co-signed By: LLP Calcium Gluconate 1,000 mg/ (Dextrose) 60 mls @ 240 mls/hr IV NOW ONE Stop: 02/21/23 21:14 Last Infusion: 02/21/23 21:49 Dose: 0 mls/hr Documented By: Admin: 02/21/23 21:10 Dose: 240 mls/hr Documented By: HFS Ioversol (Ioversol 350 Mg 125ml Prefilled Syringe) 119 ml IV ONCE ONE Stop: 02/21/23 08:16 Last Admin: 02/21/23 08:12 Dose: 119 ml Documented By: ANIA Lorazepam (Lorazepam 2 Mg/1 Ml Vial) Confirm Administered Dose 2 mg .ROUTE .STK- MED ONE Stop: 02/21/23 08:41 Last Admin: 02/21/23 09:13 Dose: Not Given Documented By: MANJINDER Lorazepam (Lorazepam 2 Mg/1 Ml Vial) 1 mg IV NOW STA Stop: 02/21/23 08:46 Last Admin: 02/21/23 08:50 Dose: 1 mg Documented By: MANJINDER Miscellaneous (Patient's Height &/Or Weight Needed) 1 each N/A NOW STA Stop: 02/21/23 11:49 Last Admin: 02/21/23 14:33 Dose: Not Given Documented By: KTS Imaging Data Radiologist's Impression: Chest X-Ray 02/21/23 07:55 XR chest 1V portable HISTORY: 67 years-old Female neuro deficit, acute stroke suspected acute stroke like symptoms COMPARISON: CTA neck of same day TECHNIQUE: AP view of the chest FINDINGS: Cardiac silhouette is enlarged. Atherosclerosis of the aorta. Lung apices are partially obscured by the patient's chin. Pulmonary vascular congestion with mild interstitial coarsening. Left diaphragmatic elevation with left basilar opacities. Suggestion of trace right and small left pleural effusions. Degenerative changes of the shoulders and spine. IMPRESSION: 1. Cardiomegaly with pulmonary vascular congestion and interstitial coarsening suggestive of mild pulmonary edema. 2. Left hemidiaphragmatic elevation. 3. Probable small left pleural effusion with mild left lung base opacities. ACT 112: Negative or not required by law. The above report was generated using voice recognition software. It may contain grammatical, syntax or spelling errors. Electronically signed by: Zach Calderon M.D. 02/21/2023 8:[address] 02/21/23 07:55 CT angio head w con, CT head/brain wo con CLINICAL HISTORY: 67 years-old Female with neuro deficit, acute stroke suspected. Acute strokelike symptoms with weakness and slurred speech COMPARISON STUDY: CTA neck of same day TECHNIQUE: Unenhanced axial CT scan of the brain is performed. Subsequently, following the IV administration of 119 cc of Optiray, CT angiogram of the brain was performed from the skull base to the vertex. Images are reviewed in the axial, sagittal, and coronal planes. 3-D MIPS images are created and assessed. IV contrast was administered without complication. All measurements were obtained according to NASCET criteria. A dose lowering technique was utilized adhering to the principles of ALARA. FINDINGS: CT BRAIN: Motion degraded exam. Involutional changes with suggestion of chronic microvascular ischemic disease. There is no acute intracranial hemorrhage, midline shift, hydrocephalus, intracranial mass, territorial ischemia or abnormal extra-axial collections. No abnormal intra-axial or extra-axial enhancement. Mastoid air cells and middle ear cavities are clear. No calvarial fracture. Mild mucosal thickening of the paranasal sinuses with small maxillary air-fluid levels. Findings suggestive of prior bilateral maxillary antrostomy. Prior bilateral lens repair.. CT ANGIOGRAM OF THE BRAIN: Prominent calcified plaque of the left greater than right petrous segments of the internal carotid artery results in approximately 60% stenosis on the left. Additional calcifications are noted within the cavernous, clinoid and supraclinoid segments resolving in approximately 80% stenosis of the left cavernous segment, image [id number]. No high-grade stenosis identified within the imaged right ICA. Mildly minimal narrowing of the middle cerebral arteries. The anterior cerebral arteries are patent. Developmentally diminutive left A1 segment. Dominant left vertebral artery. The vertebrobasilar system and posterior cerebral arteries are widely patent. There is no aneurysm, additional high-grade stenosis, or proximal branch occlusion identified. Dural sinuses appear patent. IMPRESSION: 1. High-grade stenosis of the cavernous segment left ICA with approximately 60% stenosis within the left petrous segment. 2. No aneurysm, dissection or arterial occlusion identified. 3. Motion degraded exam without acute intracranial abnormality identified. ACT 112: Negative or not required by law. The above report was generated using voice recognition software. It may contain grammatical, syntax or spelling errors. Electronically signed by: Zach Calderon M.D. 02/21/2023 8:33 AM Head CTA 02/21/23 07:55 CT angio head w con, CT head/brain wo con CLINICAL HISTORY: 67 years-old Female with neuro deficit, acute stroke suspected. Acute strokelike symptoms with weakness and slurred speech COMPARISON STUDY: CTA neck of same day TECHNIQUE: Unenhanced axial CT scan of the brain is performed. Subsequently, following the IV administration of 119 cc of Optiray, CT angiogram of the brain was performed from the skull base to the vertex. Images are reviewed in the axial, sagittal, and coronal planes. 3-D MIPS images are created and assessed. IV contrast was administered without complication. All measurements were obtained according to NASCET criteria. A dose lowering technique was utilized adhering to the principles of ALARA. FINDINGS: CT BRAIN: Motion degraded exam. Involutional changes with suggestion of chronic microvascular ischemic disease. There is no acute intracranial hemorrhage, midline shift, hydrocephalus, intracranial mass, territorial ischemia or abnormal extra-axial collections. No abnormal intra-axial or extra-axial enhancement. Mastoid air cells and middle ear cavities are clear. No calvarial fracture. Mild mucosal thickening of the paranasal sinuses with small maxillary air-fluid levels. Findings suggestive of prior bilateral maxillary antrostomy. Prior bilateral lens repair.. CT ANGIOGRAM OF THE BRAIN: Prominent calcified plaque of the left greater than right petrous segments of the internal carotid artery results in approximately 60% stenosis on the left. Additional calcifications are noted within the cavernous, clinoid and supraclinoid segments resolving in approximately 80% stenosis of the left cavernous segment, image [id number]. No high-grade stenosis identified within the imaged right ICA. Mildly minimal narrowing of the middle cerebral arteries. The anterior cerebral arteries are patent. Developmentally diminutive left A1 segment. Dominant left vertebral artery. The vertebrobasilar system and posterior cerebral arteries are widely patent. There is no aneurysm, additional high-grade stenosis, or proximal branch occlusion identified. Dural sinuses appear patent. IMPRESSION: 1. High-grade stenosis of the cavernous segment left ICA with approximately 60% stenosis within the left petrous segment. 2. No aneurysm, dissection or arterial occlusion identified. 3. Motion degraded exam without acute intracranial abnormality identified. ACT 112: Negative or not required by law. The above report was generated using voice recognition software. It may contain grammatical, syntax or spelling errors. Electronically signed by: Zach Calderon M.D. 02/21/2023 8:33 AM Neck CTA 02/21/23 07:55 CT ANGIOGRAM OF THE NECK CLINICAL HISTORY: Neurological deficit. Stroke like symptoms. COMPARISON STUDY: No priors. TECHNIQUE: Following the IV administration of 119 of Optiray 350, CT angiogram of the neck was performed from the aortic arch to the skull base. Images are reviewed in the axial, sagittal, and coronal planes. 3-D MIPS images are created and assessed. IV contrast was administered without complication. All measurements were calculated based on NASCET criteria. A dose lowering technique was utilized adhering to the principles of ALARA. The examination is compromised by motion artifact. The patient was scanned twice in an effort to improve image quality. CT DOSE: 3665.22 mGy.cm FINDINGS: Thoracic aorta: There is atherosclerotic calcification of the thoracic aorta. Visualized portions of the thoracic aorta are normal in caliber. The aortic arch demonstrates standard 3-vessel anatomy. Right carotid arterial system: The right common carotid artery is widely patent, as are the right internal and external carotid arteries. Calcified plaque is seen in the carotid bulb. There is tortuosity of the distal ICA. Left carotid arterial system: The left common carotid artery is widely patent, as are the left internal and external carotid arteries in the neck. Advanced atherosclerotic plaque is seen in the carotid bulb. Vertebral arteries: The vertebral arteries are widely patent bilaterally noting left-sided dominance.. Subclavian arteries: Widely patent bilaterally. Intracranial vasculature: There is high-grade focal stenosis of the cavernous carotid artery seen on axial image #305. The remaining intracranial vessels at the skull base are patent as visualized. See report of CT angiogram of the brain performed concurrently for detailed intracranial findings. Jugular veins: Widely patent bilaterally. Brain parenchyma: The visualized brain parenchyma the skull base is within normal limits. Lung apices: Scarring/atelectasis is noted in the upper lobes. Partially visualized upper lobe lung parenchyma otherwise appears clear. Soft tissues: The visualized pharyngeal soft tissues are normal in appearance noting angiographic phase technique. The oropharyngeal airway appears widely patent. The thyroid gland is mildly enlarged and heterogeneous. The salivary glands are normal in appearance. No cervical lymphadenopathy is seen. Skeletal structures: The skeletal structures are osteopenic. The visualized calvarium at the skull base appears intact. The imaged cervical spine is maintained noting multilevel spondylosis.. Sinuses and mastoids: There is evidence of previous paranasal sinus surgery. There is mild mucosal thickening and air-fluid levels within the maxillary antra. Mild mucosal thickening is also seen within the ethmoid and sphenoid sinuses. There are small mastoid effusions. IMPRESSION: 1. Unremarkable CT angiogram of the neck. 2. There is focal high-grade stenosis of the intracranial left internal carotid arteries above. See report of CT angiogram of the brain performed concurrently for detailed findings. ACT 112: Negative or not required by law. Electronically signed by: Greg Linares M.D. 02/21/2023 8:37 AM Discharge Plan Visit Data Chief Complaint: Stroke Alert ED Provider: Stephen Villanueva Discharge Problem: Seizure, End-stage renal disease on hemodialysis, Chronic respiratory failure with hypoxia, Acute metabolic encephalopathy, Stroke-like symptoms, Paroxysmal A-fib Patient Disposition: Admitted As Inpatient Discharge Instructions Interventions: ED Discharge Assessment Last Done: 02/21/23 13:21
--- NOTE | 2023-02-21 08:36 | CT Scan Report ---
CT angio head w con, CT head/brain wo con CLINICAL HISTORY: 67 years-old Female with neuro deficit, acute stroke suspected. Acute strokelike symptoms with weakness and slurred speech COMPARISON STUDY: CTA neck of same day TECHNIQUE: Unenhanced axial CT scan of the brain is performed. Subsequently, following the IV adminis tration of 119 cc of Optiray, CT angiogram of the brain was performed from the skull base to the vert ex. Images are reviewed in the axial, sagittal, and coronal planes. 3-D MIPS images are created and a ssessed. IV contrast was administered without complication. All measurements were obtained according to NASCET criteria. A dose lowering technique was utilized adhering to the principles of ALARA. FINDINGS: CT BRAIN: Motion degraded exam. Involutional changes with suggestion of chronic microvascular ischemic disease. There is no acute intracranial hemorrhage, midline shift, hydrocephalus, intracranial mass, territor ial ischemia or abnormal extra-axial collections. No abnormal intra-axial or extra-axial enhancement. Mastoid air cells and middle ear cavities are clear. No calvarial fracture. Mild mucosal thickening of the paranasal sinuses with small maxillary air-fluid levels. Findings suggestive of prior bilater al maxillary antrostomy. Prior bilateral lens repair.. CT ANGIOGRAM OF THE BRAIN: Prominent calcified plaque of the left greater than right petrous segments of the internal carotid ar [place] results in approximately 60% stenosis on the left. Additional calcifications are noted within th e cavernous, clinoid and supraclinoid segments resolving in approximately 80% stenosis of the left ca vernous segment, image [id number]. No high-grade stenosis identified within the imaged right ICA. Mildly minimal narrowing of the middle cerebral arteries. The anterior cerebral arteries are patent. Developmentally diminutive left A1 segment. Dominant left vertebral artery. The vertebrobasilar syste m and posterior cerebral arteries are widely patent. There is no aneurysm, additional high-grade sten osis, or proximal branch occlusion identified. Dural sinuses appear patent. IMPRESSION: 1. High-grade stenosis of the cavernous segment left ICA with approximately 60% stenosis within the l eft petrous segment. 2. No aneurysm, dissection or arterial occlusion identified. 3. Motion degraded exam without acute intracranial abnormality identified. ACT 112: Negative or not required by law. The above report was generated using voice recognition software. It may contain grammatical, syntax o r spelling errors. Electronically signed by: Zach Calderon M.D. 02/21/2023 8:33 AM
--- NOTE | 2023-02-21 08:39 | CT Scan Report ---
CT ANGIOGRAM OF THE NECK CLINICAL HISTORY: Neurological deficit. Stroke like symptoms. COMPARISON STUDY: No priors. TECHNIQUE: Following the IV administration of 119 of Optiray 350, CT angiogram of the neck was perfor med from the aortic arch to the skull base. Images are reviewed in the axial, sagittal, and coronal p lanes. 3-D MIPS images are created and assessed. IV contrast was administered without complication. A ll measurements were calculated based on NASCET criteria. A dose lowering technique was utilized adh ering to the principles of ALARA. The examination is compromised by motion artifact. The patient was scanned twice in an effort to improve image quality. CT DOSE: 3665.22 mGy.cm FINDINGS: Thoracic aorta: There is atherosclerotic calcification of the thoracic aorta. Visualized portions of the thoracic aorta are normal in caliber. The aortic arch demonstrates standard 3-vessel anatomy. Right carotid arterial system: The right common carotid artery is widely patent, as are the right int ernal and external carotid arteries. Calcified plaque is seen in the carotid bulb. There is tortuosit y of the distal ICA. Left carotid arterial system: The left common carotid artery is widely patent, as are the left help desk intern al and external carotid arteries in the neck. Advanced atherosclerotic plaque is seen in the carotid bulb. Vertebral arteries: The vertebral arteries are widely patent bilaterally noting left-sided dominance. . Subclavian arteries: Widely patent bilaterally. Intracranial vasculature: There is high-grade focal stenosis of the cavernous carotid artery seen on axial image #305. The remaining intracranial vessels at the skull base are patent as visualized. See report of CT angiogram of the brain performed concurrently for detailed intracranial findings. Jugular veins: Widely patent bilaterally. Brain parenchyma: The visualized brain parenchyma the skull base is within normal limits. Lung apices: Scarring/atelectasis is noted in the upper lobes. Partially visualized upper lobe lung p arenchyma otherwise appears clear. Soft tissues: The visualized pharyngeal soft tissues are normal in appearance noting angiographic pha se technique. The oropharyngeal airway appears widely patent. The thyroid gland is mildly enlarged an d heterogeneous. The salivary glands are normal in appearance. No cervical lymphadenopathy is seen. Skeletal structures: The skeletal structures are osteopenic. The visualized calvarium at the skull ba se appears intact. The imaged cervical spine is maintained noting multilevel spondylosis.. Sinuses and mastoids: There is evidence of previous paranasal sinus surgery. There is mild mucosal th ickening and air-fluid levels within the maxillary antra. Mild mucosal thickening is also seen within the ethmoid and sphenoid sinuses. There are small mastoid effusions. IMPRESSION: 1. Unremarkable CT angiogram of the neck. 2. There is focal high-grade stenosis of the intracranial left internal carotid arteries above. See r eport of CT angiogram of the brain performed concurrently for detailed findings. ACT 112: Negative or not required by law. Electronically signed by: Greg Linares M.D. 02/21/2023 8:37 AM
[2023-02-21] MEDS ORDERED: LORazepam 2 MG/1 ML VIAL ONE (08:40)
[2023-02-21 08:45] LABS: iSTAT Creatinine 4.7 mg/dl (0.6-1.3); iSTAT Hemoglobin 12.2 g/dl (12.0-16.0); iSTAT Ionized Calcium 1.09 mmol/l (1.12-1.32); iSTAT Potassium 5.6 mmol/L (3.3-5.0)
[2023-02-21] MEDS ORDERED: LORazepam 2 MG/1 ML VIAL IV STA (08:45)
--- NOTE | 2023-02-21 08:46 | XRay Report ---
XR chest 1V portable HISTORY: 67 years-old Female neuro deficit, acute stroke suspected acute stroke like symptoms COMPARISON: CTA neck of same day TECHNIQUE: AP view of the chest FINDINGS: Cardiac silhouette is enlarged. Atherosclerosis of the aorta. Lung apices are partially obscured by t he patient's chin. Pulmonary vascular congestion with mild interstitial coarsening. Left diaphragmati c elevation with left basilar opacities. Suggestion of trace right and small left pleural effusions. Degenerative changes of the shoulders and spine. IMPRESSION: 1. Cardiomegaly with pulmonary vascular congestion and interstitial coarsening suggestive of mild pul monary edema. 2. Left hemidiaphragmatic elevation. 3. Probable small left pleural effusion with mild left lung base opacities. ACT 112: Negative or not required by law. The above report was generated using voice recognition software. It may contain grammatical, syntax o r spelling errors. Electronically signed by: Zach Calderon M.D. 02/21/2023 8:44 AM
[2023-02-21 08:54] LABS: Basophils # (auto) 0.03 K/uL (0-0.2); Basophils % (auto) 0.2 %; Eosinophils # (auto) 0.07 K/uL (0-0.50); Eosinophils % (auto) 0.4 %; Hematocrit (blood only) 35.6 % (37.0-47.0); Immature Granulocytes # (auto) 0.15 K/uL (0.01-0.20); Immature Granulocytes % (auto) 0.9 %; Lymphocytes # (auto) 3.37 K/uL (1.2-3.4); Lymphocytes % (auto) 20.2 %; Mean Corpuscular Hemoglobin 28.7 pg (25.0-34.0); Mean Corpuscular Hgb Conc 30.9 g/dL (32.0-36.0); Mean Platelet Volume 11.6 fL (9.4-12.4); Monocytes # (auto) 1.13 K/uL (0.11-0.59); Monocytes % (auto) 6.8 %; Neutrophils # (auto) 11.96 K/uL (1.40-6.50); Neutrophils % (auto) 71.5 %; Platelet Count 202 K/uL (130-400); RDW Standard Deviation 63.8 fL (36.4-46.3); Red Blood Count 3.83 M/uL (4.20-5.40); White Blood Count 16.71 K/ul (4.8-10.8)
[2023-02-21 08:58] LABS: Partial Thromboplastin Ratio 1.3; Partial Thromboplastin Time 35.6 Seconds (21.0-31.0); Prothrombin Time 11.1 Seconds (9.0-12.0)
--- NOTE | 2023-02-21 09:37 | History & Physical Report ---
Date of Service February 21, 2023 Assessment & Plan (1) Seizure: Plan: -Admit to PCU -Loaded with Keppra 2 g and 1 mg Ativan in the ER after 2 witnessed separate seizures early this morning after 5 AM -Neurology consulted - apprecate recs -MRI of the brain seizure protocol - suspicion for meningitis with acute seziure and recent infections -CT of the head was reviewed and showed left ICA high-grade stenosis but no other signs of hemorrhage -Lactic acid is 2.7 -Mag 1.4-We will replace with IV -LP is being arranged for today, working with IR as well as anesthesiology to have this done-- last dose of heparin subq 61425 was at 5:15a. no antiplatelets, no other anticoagulation -Checking Lyme's titer, B12 level -Follow blood cultures, End-stage renal patient does not make any urine -Noted history of C. difficile currently, placed on contact precautions, retention enema for now and will need to continue po vanc once more awake -Seizure precautions & Fall precautions - ID consulted - Antibiotics: ceftriaxone 2 g IV q12h, vancomycin per pharmacy consult. Given her age, adding on Listeria coverage with ampicillin is reasonable - renally adjusted dose 2 g IV q12h. Obtain LP prior to determining if needs antiviral coverage with acyclovir, which will need renally reduced and levels monitored after dialysis sessions (2) End-stage renal disease on hemodialysis: Plan: -Nephrology consulted, discussed with Dr. Garces, will plan to do dialysis later this afternoon after patient is more stable -Give Keppra dosing postdialysis sessions as above -Left-sided AVF (3) DM II (diabetes mellitus, type II), controlled: Plan: -ISS with Accu-Cheks ACHS -Checking an A1c -Lantus 12 U daily on hold for now with NPO status - can add later once status improves. (4) Paroxysmal A-fib: Plan: - Patient is not on formal anticoagulation - Strict n.p.o., may continue propafenone and metoprolol if able to take p.o. intake - Currently in NSR (5) Chronic respiratory failure with hypoxia: (6) Obesity hypoventilation syndrome: (7) JULIETH (obstructive sleep apnea): (8) COPD (chronic obstructive pulmonary disease): (9) Restrictive lung disease: Plan: -Place patient on BiPAP-noted in her heart that she wears CPAP, unknown settings at this time -ABG reviewed: pH 7.32, PCO2 54, PO2 76, HCO3 28 -Patient was reportedly vomiting per nursing, monitor for aspiration -Aspiration precautions -CXR reviewed showing cardiomegaly with pulmonary vascular congestion, interstitial coarsening suggestive of mild pulmonary edema, left hemidiaphragmatic elevation, probable small left pleural effusion with mild left lung base opacity -Breath sounds are worse on the right side at time of my exam - concern for aspiration -Pt as on doxycycline course to finish abx for treatment of LLL pneumonia s/p hospital stay at [facility] prior to her stay at [facility] (10) Peripheral vascular disease: (11) GERD (gastroesophageal reflux disease): (12) HLD (hyperlipidemia): (13) C. difficile diarrhea: Plan: -Unable to take p.o. vanc 125 mcg daily, started at the end of January,course to continue through 03/16 - Vanc retention enema daily in the meantime - Contact precaution (14) Anemia of chronic disease: (15) Iron deficiency: Plan: - Chronic, stable, is on IV iron q7D as outpatient DVT ppx: - teds, scds, obtain LP today, then resume chemical ppx CODE: Full Code Dispo: From home, likely to remain in the hospital x 1-2 days A total of 110 minutes were spent with greater than 50% of that time face to face with the patient, personally reviewing all current laboratories, imaging studies, past medication reconciliation, outpatient chart review, and discussion with specialists to collaborate care for the patient with attending. Please see attending documentation for corrections and/or additions. (16) Morbid obesity: (17) Acute metabolic encephalopathy: (18) Hypercarbia: History of Present Illness Chief Complaint: Confusion Primary Care Provider: [facility] This is a 67-year-old female with past medical history of ESRD on HD with left AVF status post revision, DM type II, chronic respiratory failure with hypoxia, history of diabetic retinopathy, HLD, polyneuropathy, obesity hypoventilation syndrome, COPD, JULIETH, restrictive lung disease, paroxysmal A-fib not on anticoagulation, peripheral circular disease, GERD, C. difficile diarrhea currently on p.o. bank, osteopenia, anemia of chronic disease, iron deficiency. Most recently patient was admitted to [facility] on 02/08 with fatigue low-grade fever poor appetite, cough and lethargy. Patient was septic secondary to pneumonia and was treated with IV Zosyn, fluids and initially was hypotensive and required being in the ICU for 2 days due to septic shock. Her blood cultures were positive for Clostridium perfringens. She had a CT of the head and of her left lower extremity which ruled out osteomyelitis. Repeat blood cul tures documented clearance. She was referred to follow-up with pulmonology for repeat CT of the chest to document clearance in a few weeks. She was transitioned to doxycycline to complete course of treatment for left upper lobe pneumonia and lower extremity cellulitis. She was found to have C. difficile and was being treated with p.o. vancomycin as she was not a fecal transplant candidate. She was treated for left lower lobe pneumonia, respiratory failure and was discharged to inpatient rehab at [facility] on 02/13/23. History is obtained via the chart and ER physician who spoke with staff from [facility]. Patient was seen while last known at 5am. At that point the patient began to be, more confused, was dysarthric, with worsening weakness, and at baseline requires a 4 person assist. At [facility] a seizure was witnessed, patient was transferred to the ER and while here had a second seizure where she was loaded with 2 g IV Keppra and given [address] of the head was completed and showed left ICA high-grade stenosis but no acute bleed. The patient is not on any blood thinners, or antiplatelet medication although she does have a history of paroxysmal A-fib. Unknown why she is not on systemic anticoagulation at this time. At the time of my exam patient is difficult to awaken, only awakens to blood draw and light being shined into her eyes with pupillary check ( which are very sluggish) groans slightly but otherwise is noncommunicative. She does not follow commands, and breathing is very coarse sounding on 2L via NC. Hx of smoking x 47 years, no alcohol use or illicit drug use. Allergies Allergy/AdvReac Type Severity Reaction Status Date / Time avelox Allergy Unknown Uncoded 02/21/23 10:13 glucophage Allergy Unknown Uncoded 02/21/23 10:13 lisinopril Allergy Unknown Uncoded 02/21/23 10:13 Home Medications Medication Instructions Recorded Confirmed Type Milk of Magnesia 30 ml PO DAILY PRN Constipation 02/21/23 02/21/23 History Saccharomyces boulardii 250 mg 250 mg PO BID 02/21/23 02/21/23 History capsule acetylcysteine 600 mg capsule 600 mg PO DAILY 02/21/23 02/21/23 History allopurinol 100 mg tablet 100 mg PO Q2D 02/21/23 02/21/23 History (Zyloprim) atorvastatin 20 mg tablet 20 mg PO PM 02/21/23 02/21/23 History bisacodyl 10 mg rectal suppository 10 mg SC DAILY PRN Constipation 02/21/23 02/21/23 History calcitriol 0.25 mcg capsule 0.25 mcg PO UD 02/21/23 02/21/23 History darbepoetin ulises in polysorbat 40 40 mcg subcut Q7D 02/21/23 02/21/23 History mcg/0.4 mL in polysorbate injection syringe dextrose 50 % in water (D50W) 0 mg IV DIRECTED PRN 02/21/23 02/21/23 History Hypoglycemia dextrose 50 % in water (D50W) 25 ml IV DIRECTED PRN 02/21/23 02/21/23 History Hypoglycemia dextrose 50 % in water (D50W) 50 ml IV DIRECTED PRN 02/21/23 02/21/23 History Hypoglycemia docusate sodium 100 mg capsule 100 mg PO BID 02/21/23 02/21/23 History doxycycline hyclate 100 mg capsule 100 mg PO BID 02/21/23 02/21/23 History dulaglutide 0.75 mg/0.5 mL 0.75 mg subcut WK 02/21/23 02/21/23 History subcutaneous pen injector (Trulicity) fluticasone fur. 100 mcg-umeclid 1 inh inhalation DAILY 02/21/23 02/21/23 History 62.5 mcg-vilant 25 mcg inhalat.powder (Trelegy Ellipta) glucagon 1 mg INJ DIRECTED PRN 02/21/23 02/21/23 History Hypoglycemia heparin (porcine) 7,500 unit/mL 7,500 unit Q12H 02/21/23 02/21/23 History injection syringe insulin glargine 100 unit/mL 12 unit subcut QAM 02/21/23 02/21/23 History subcutaneous solution (Lantus U-100 Insulin) loperamide 2 mg capsule 4 mg PO BID PRN Loose Stool 02/21/23 02/21/23 History metoprolol succinate 25 mg 12.5 mg PO Q12H 02/21/23 02/21/23 History tablet,extended release 24 hr midodrine 5 mg tablet 10 mg PO TID 02/21/23 02/21/23 History montelukast 10 mg tablet 10 mg PO DAILY 02/21/23 02/21/23 History multivitamin 1 tab PO DAILY 02/21/23 02/21/23 History ondansetron 4 mg disintegrating 4 mg PO Q4H PRN NAUSEA 02/21/23 02/21/23 History tablet pantoprazole 20 mg tablet,delayed 20 mg PO DAILY 02/21/23 02/21/23 History release polyethylene glycol 3350 17 17 g PO DIRECTED PRN CONSTI 02/21/23 02/21/23 History gram/dose oral powder (Miralax) prednisone 10 mg tablet 10 mg PO DAILY 02/21/23 02/21/23 History pregabalin 25 mg capsule 25 mg PO DAILY 02/21/23 02/21/23 History propafenone 150 mg tablet 150 mg PO Q12H 02/21/23 02/21/23 History roflumilast 500 mcg tablet 500 mcg PO DAILY 02/21/23 02/21/23 History ropinirole 0.25 mg tablet 0.25 mg PO BID 02/21/23 02/21/23 History sennosides 8.6 mg-docusate sodium 1 tab PO USEASDIRECTD PRN 02/21/23 02/21/23 History 50 mg tablet (Senokot-S) Constipation sodium chloride 0.9 % 0 ml IV DIRECTED 02/21/23 02/21/23 History sodium chloride 0.9 % 0 ml IV DIRECTED 02/21/23 02/21/23 History sodium chloride 0.9 % 1,000 ml IV DAILY PRN OTHER 02/21/23 02/21/23 History sodium phosphates 19 gram-7 133 ml SC DAILY PRN Constipation 02/21/23 02/21/23 History gram/118 mL enema (Fleet Enema) vancomycin 125 mg capsule 125 mg PO DAILY 02/21/23 02/21/23 History Past Med/Surg History Medical History Anemia of chronic disease C. difficile diarrhea Chronic respiratory failure with hypoxia COPD (chronic obstructive pulmonary disease) Diabetic retinopathy Dislocation of right shoulder joint DM II (diabetes mellitus, type II), controlled End-stage renal disease on hemodialysis GERD (gastroesophageal reflux disease) HLD (hyperlipidemia) Humeral surgical neck fracture Iron deficiency Obesity hypoventilation syndrome JULIETH (obstructive sleep apnea) Paroxysmal A-fib Peripheral vascular disease Restrictive lung disease Seizure Surgical History Amputation of left great toe AVF (arteriovenous fistula) H/O Spinal surgery History of bronchoscopy Hx of colonoscopy Hx of sinus surgery Hx of tubal ligation Family History Other Family history non-contributory Social History Smoking Status: Former smoker Tobacco Type: Cigarettes Hx Alcohol Use: No Hx Substance Use: No Preferred Language: Lithuanian Feels Safe at Home: Yes Review of Systems Review of Systems: Unobtainable due to cognitive status Physical Exam Physical Exam: General: asleep, difficult to awaken unless painful stimuli with blood draw, morbidly obese Head: Normocephalic, atraumatic ENT: PER, minimally reactive to light bilaterally, EOM cannot be assessed, no pharyngeal exudate, mucous membranes moist Chest: Coarse breath sounds throughout in the right side, on 2 L via NC, rales and wheezes Cardiac: Regular rate and rhythm, no murmur, no JVD, normal peripheral pulses, good capillary refill Abdominal: NABS x 4 quadrants, soft, nondistended, nontender to palpation, no rebound or guarding Extremities: Left AVf wrapped in kerlix, multiple areas of ecchymosis over arms and legs, 2+ pitting peripheral edema, no erythema, calfs nontender to palpation Psych: Normal mood and affect Neuro:obtunded, strength cannot be assessed, speech no assessed as she does not talk with me, pupils are minimally reactive bilaterally and dilated Results & Data Results & Data Vital Signs (Past 12 Hours) Vital Signs Temp Pulse Resp BP Pulse Ox O2 Del Method O2 Flow Rate 02/21/23 09:15 84 16 100 6 02/21/23 09:15 151/58 H 02/21/23 09:01 140/67 02/21/23 09:01 88 16 100 15 02/21/23 09:00 92 H 18 100 15 02/21/23 08:45 97 H 18 99 15 02/21/23 08:44 109 H 21 98 15 02/21/23 08:44 161/88 H 02/21/23 08:30 80 24 96 2 02/21/23 08:19 84 19 95 2 02/21/23 09:25 100 Nasal Cannula, Non-rebreather 15 02/21/23 08:35 56 L Nasal Cannula, Non-rebreather 2 02/21/23 07:47 35.9 C L 88 26 H 149/84 H 98 Nasal Cannula 2 02/21/23 08:24 83 Laboratory Results 02/21/23 09:51 Aerobic Blood Culture - Pending Blood Anaerobic Blood Culture - Pending 02/21/23 08:32 Aerobic Blood Culture - Pending Blood Anaerobic Blood Culture - Pending 02/21/23 02/21/23 02/21/23 Unknown 09:58 09:51 WBC RBC Hgb POC Hgb Hct POC Hct MCV MCH MCHC RDW Std Deviation RDW Coeff of Sagrario Plt Count MPV Immature Gran % (Auto) Neut % (Auto) Lymph % (Auto) [place] % (Auto) Eos % (Auto) Baso % (Auto) Neut # (Auto) Lymph # (Auto) [place] # (Auto) Eos # (Auto) Baso # (Auto) Immature Gran # (Auto) PT INR APTT PTT Ratio ABG pH 7.32 L ABG pCO2 54 H ABG pO2 76 L ABG HCO3 28 H ABG O2 Saturation 94.7 ABG Base Excess 0.7 Dmitry Test POS Oxygen Given 2 L POC Sodium Sodium POC Potassium Potassium POC Chloride Chloride Carbon Dioxide POC Total CO2 Anion Gap POC Anion Gap POC BUN BUN Creatinine POC Creatinine Est Cr Clr Drug Dosing Est GFR ( Amer) Est GFR (Non-Af Amer) BUN/Creatinine Ratio Glucose POC Glucose (other) Lactate 2.7 H* Calcium POC Ioniz Calcium Leann Phosphorus Magnesium Total Bilirubin AST ALT Alkaline Phosphatase Troponin I High Sens Total Protein Albumin Globulin Albumin/Globulin Ratio Procalcitonin TSH SARS-CoV-2, RNA, NAAT NEGATIVE 02/21/23 02/21/23 02/21/23 08:51 08:33 08:32 WBC RBC Hgb POC Hgb 12.2 Hct POC Hct 36 L MCV MCH MCHC RDW Std Deviation RDW Coeff of Sagrario Plt Count MPV Immature Gran % (Auto) Neut % (Auto) Lymph % (Auto) [place] % (Auto) Eos % (Auto) Baso % (Auto) Neut # (Auto) Lymph # (Auto) [place] # (Auto) Eos # (Auto) Baso # (Auto) Immature Gran # (Auto) PT INR APTT PTT Ratio ABG pH ABG pCO2 ABG pO2 ABG HCO3 ABG O2 Saturation ABG Base Excess Dmitry Test Oxygen Given POC Sodium 133 L Sodium POC Potassium 5.6 H Potassium POC Chloride 99 L Chloride Carbon Dioxide POC Total CO2 26 Anion Gap POC Anion Gap 14.0 L POC BUN 36 H BUN Creatinine POC Creatinine 4.7 H* Est Cr Clr Drug Dosing Est GFR ( Amer) Est GFR (Non-Af Amer) BUN/Creatinine Ratio Glucose POC Glucose (other) 101 H Lactate Calcium POC Ioniz Calcium Leann 1.09 L Phosphorus Magnesium Total Bilirubin AST ALT Alkaline Phosphatase Troponin I High Sens Total Protein Albumin Globulin Albumin/Globulin Ratio Procalcitonin 0.32 TSH 1.168 SARS-CoV-2, RNA, NAAT 02/21/23 02/21/23 02/21/23 08:16 08:16 08:16 WBC 16.71 H RBC 3.83 L Hgb 11.0 L POC Hgb Hct 35.6 L POC Hct MCV 93.0 MCH 28.7 MCHC 30.9 L RDW Std Deviation 63.8 H RDW Coeff of Sagrario 19.0 H Plt Count 202 MPV 11.6 Immature Gran % (Auto) 0.9 Neut % (Auto) 71.5 Lymph % (Auto) 20.2 [place] % (Auto) 6.8 Eos % (Auto) 0.4 Baso % (Auto) 0.2 Neut # (Auto) 11.96 H Lymph # (Auto) 3.37 [place] # (Auto) 1.13 H Eos # (Auto) 0.07 Baso # (Auto) 0.03 Immature Gran # (Auto) 0.15 PT 11.1 INR 1.0 APTT 35.6 H PTT Ratio 1.3 ABG pH ABG pCO2 ABG pO2 ABG HCO3 ABG O2 Saturation ABG Base Excess Dmitry Test Oxygen Given POC Sodium Sodium 136 POC Potassium Potassium 5.3 H POC Chloride Chloride 98 Carbon Dioxide 29 POC Total CO2 Anion Gap 9 POC Anion Gap POC BUN BUN 33 H Creatinine 4.55 H* POC Creatinine Est Cr Clr Drug Dosing Not Reportable Est GFR ( Amer) 10.8 Est GFR (Non-Af Amer) 9.3 BUN/Creatinine Ratio 7.3 L Glucose 108 H POC Glucose (other) Lactate Calcium 9.4 POC Ioniz Calcium Leann Phosphorus 5.3 H Magnesium 1.4 L Total Bilirubin 0.6 AST 15 ALT 16 Alkaline Phosphatase 60 Troponin I High Sens 16.2 H Total Protein 5.4 L Albumin 3.4 Globulin 2.0 L Albumin/Globulin Ratio 1.7 Procalcitonin TSH SARS-CoV-2, RNA, NAAT Diagnostic Findings Chest X-Ray 02/21/23 07:55 XR chest 1V portable HISTORY: 67 years-old Female neuro deficit, acute stroke suspected acute stroke like symptoms COMPARISON: CTA neck of same day TECHNIQUE: AP view of the chest FINDINGS: Cardiac silhouette is enlarged. Atherosclerosis of the aorta. Lung apices are partially obscured by the patient's chin. Pulmonary vascular congestion with mild interstitial coarsening. Left diaphragmatic elevation with left basilar opacities. Suggestion of trace right and small left pleural effusions. Degenerative changes of the shoulders and spine. IMPRESSION: 1. Cardiomegaly with pulmonary vascular congestion and interstitial coarsening suggestive of mild pulmonary edema. 2. Left hemidiaphragmatic elevation. 3. Probable small left pleural effusion with mild left lung base opacities. ACT 112: Negative or not required by law. The above report was generated using voice recognition software. It may contain grammatical, syntax or spelling errors. Electronically signed by: Zach Calderon M.D. 02/21/2023 8:[address] 02/21/23 07:55 CT angio head w con, CT head/brain wo con CLINICAL HISTORY: 67 years-old Female with neuro deficit, acute stroke suspected. Acute strokelike symptoms with weakness and slurred speech COMPARISON STUDY: CTA neck of same day TECHNIQUE: Unenhanced axial CT scan of the brain is performed. Subsequently, following the IV administration of 119 cc of Optiray, CT angiogram of the brain was performed from the skull base to the vertex. Images are reviewed in the axial, sagittal, and coronal planes. 3-D MIPS images are created and assessed. IV contrast was administered without complication. All measurements were obtained according to NASCET criteria. A dose lowering technique was utilized adhering to the principles of ALARA. FINDINGS: CT BRAIN: Motion degraded exam. Involutional changes with suggestion of chronic microvascular ischemic disease. There is no acute intracranial hemorrhage, midline shift, hydrocephalus, intracranial mass, territorial ischemia or abnormal extra-axial collections. No abnormal intra-axial or extra-axial enhancement. Mastoid air cells and middle ear cavities are clear. No calvarial fracture. Mild mucosal thickening of the paranasal sinuses with small maxillary air-fluid levels. Findings suggestive of prior bilateral maxillary antrostomy. Prior bilateral lens repair.. CT ANGIOGRAM OF THE BRAIN: Prominent calcified plaque of the left greater than right petrous segments of the internal carotid artery results in approximately 60% stenosis on the left. Additional calcifications are noted within the cavernous, clinoid and supraclinoid segments resolving in approximately 80% stenosis of the left cavernous segment, image [id number]. No high-grade stenosis identified within the imaged right ICA. Mildly minimal narrowing of the middle cerebral arteries. The anterior cerebral arteries are patent. Developmentally diminutive left A1 segment. Dominant left vertebral artery. The vertebrobasilar system and posterior cerebral arteries are widely patent. There is no aneurysm, additional high-grade stenosis, or proximal branch occlusion identified. Dural sinuses appear patent. IMPRESSION: 1. High-grade stenosis of the cavernous segment left ICA with approximately 60% stenosis within the left petrous segment. 2. No aneurysm, dissection or arterial occlusion identified. 3. Motion degraded exam without acute intracranial abnormality identified. ACT 112: Negative or not required by law. The above report was generated using voice recognition software. It may contain grammatical, syntax or spelling errors. Electronically signed by: Zach Calderon M.D. 02/21/2023 8:33 AM Head CTA 02/21/23 07:55 CT angio head w con, CT head/brain wo con CLINICAL HISTORY: 67 years-old Female with neuro deficit, acute stroke suspected. Acute strokelike symptoms with weakness and slurred speech COMPARISON STUDY: CTA neck of same day TECHNIQUE: Unenhanced axial CT scan of the brain is performed. Subsequently, following the IV administration of 119 cc of Optiray, CT angiogram of the brain was performed from the skull base to the vertex. Images are reviewed in the axial, sagittal, and coronal planes. 3-D MIPS images are created and assessed. IV contrast was administered without complication. All measurements were obtained according to NASCET criteria. A dose lowering technique was utilized adhering to the principles of ALARA. FINDINGS: CT BRAIN: Motion degraded exam. Involutional changes with suggestion of chronic microvascular ischemic disease. There is no acute intracranial hemorrhage, midline shift, hydrocephalus, intracranial mass, territorial ischemia or abnormal extra-axial collections. No abnormal intra-axial or extra-axial enhancement. Mastoid air cells and middle ear cavities are clear. No calvarial fracture. Mild mucosal thickening of the paranasal sinuses with small maxillary air-fluid levels. Findings suggestive of prior bilateral maxillary antrostomy. Prior bilateral lens repair.. CT ANGIOGRAM OF THE BRAIN: Prominent calcified plaque of the left greater than right petrous segments of the internal carotid artery results in approximately 60% stenosis on the left. Additional calcifications are noted within the cavernous, clinoid and supraclinoid segments resolving in approximately 80% stenosis of the left cavernous segment, image [id number]. No high-grade stenosis identified within the imaged right ICA. Mildly minimal narrowing of the middle cerebral arteries. The anterior cerebral arteries are patent. Developmentally diminutive left A1 segment. Dominant left vertebral artery. The vertebrobasilar system and posterior cerebral arteries are widely patent. There is no aneurysm, additional high-grade stenosis, or proximal branch occlusion identified. Dural sinuses appear patent. IMPRESSION: 1. High-grade stenosis of the cavernous segment left ICA with approximately 60% stenosis within the left petrous segment. 2. No aneurysm, dissection or arterial occlusion identified. 3. Motion degraded exam without acute intracranial abnormality identified. ACT 112: Negative or not required by law. The above report was generated using voice recognition software. It may contain grammatical, syntax or spelling errors. Electronically signed by: Zach Calderon M.D. 02/21/2023 8:33 AM Neck CTA 02/21/23 07:55 CT ANGIOGRAM OF THE NECK CLINICAL HISTORY: Neurological deficit. Stroke like symptoms. COMPARISON STUDY: No priors. TECHNIQUE: Following the IV administration of 119 of Optiray 350, CT angiogram of the neck was performed from the aortic arch to the skull base. Images are reviewed in the axial, sagittal, and coronal planes. 3-D MIPS images are created and assessed. IV contrast was administered without complication. All measurements were calculated based on NASCET criteria. A dose lowering technique was utilized adhering to the principles of ALARA. The examination is compromised by motion artifact. The patient was scanned twice in an effort to improve image quality. CT DOSE: 3665.22 mGy.cm FINDINGS: Thoracic aorta: There is atherosclerotic calcification of the thoracic aorta. Visualized portions of the thoracic aorta are normal in caliber. The aortic arch demonstrates standard 3-vessel anatomy. Right carotid arterial system: The right common carotid artery is widely patent, as are the right internal and external carotid arteries. Calcified plaque is seen in the carotid bulb. There is tortuosity of the distal ICA. Left carotid arterial system: The left common carotid artery is widely patent, as are the left internal and external carotid arteries in the neck. Advanced atherosclerotic plaque is seen in the carotid bulb. Vertebral arteries: The vertebral arteries are widely patent bilaterally noting left-sided dominance.. Subclavian arteries: Widely patent bilaterally. Intracranial vasculature: There is high-grade focal stenosis of the cavernous carotid artery seen on axial image #[id number]. The remaining intracranial vessels at the skull base are patent as visualized. See report of CT angiogram of the brain performed concurrently for detailed intracranial findings. Jugular veins: Widely patent bilaterally. Brain parenchyma: The visualized brain parenchyma the skull base is within normal limits. Lung apices: Scarring/atelectasis is noted in the upper lobes. Partially visualized upper lobe lung parenchyma otherwise appears clear. Soft tissues: The visualized pharyngeal soft tissues are normal in appearance noting angiographic phase technique. The oropharyngeal airway appears widely patent. The thyroid gland is mildly enlarged and heterogeneous. The salivary glands are normal in appearance. No cervical lymphadenopathy is seen. Skeletal structures: The skeletal structures are osteopenic. The visualized calvarium at the skull base appears intact. The imaged cervical spine is maintained noting multilevel spondylosis.. Sinuses and mastoids: There is evidence of previous paranasal sinus surgery. There is mild mucosal thickening and air-fluid levels within the maxillary antra. Mild mucosal thickening is also seen within the ethmoid and sphenoid sinuses. There are small mastoid effusions. IMPRESSION: 1. Unremarkable CT angiogram of the neck. 2. There is focal high-grade stenosis of the intracranial left internal carotid arteries above. See report of CT angiogram of the brain performed concurrently for detailed findings. ACT 112: Negative or not required by law. Electronically signed by: Greg Linares M.D. 02/21/2023 8:37 AM ECG Additional Comments: 21-FEB-2023 08:21:27 [facility]-EDSTAT ROUTINE RETRIEVAL Wide QRS rhythm Right bundle branch block Left anterior fascicular block Bifascicular block Cannot rule out Inferior infarct (masked by fascicular block?) , age undetermined Anterior infarct , age undetermined Abnormal ECG No previous ECGs available 25mm/s10mm/[id number] 243CID: 20Unconfirmed Vent. rate 81 BPM SC interval * ms QRS duration 146 ms QT/QTc 420/487 ms Code Status & VTE Plan Code Status Full code Supervising Physician Co-Signing Physician Notes I have seen and examined the patient and have discussed the case with the provider above. I agree with the assessment and plan as stated with the following exceptions. 67 yo F presents with new onset seizure and hypothermia. She comes from [facility] where she was recovering from a hospital stay at [facility] for pneumonia. During that hospitalization she was in the ICU for treatment of septic shock. She was doing well at [facility] and was about to be discharged home today or to [facility]. During a therapy assessment at 0600 this morning, she exhibited slurred speech and generalized weakness. NIHSS was 19 on arrival to the ER. In the ER CTA head and neck was performed which was clear aside from an area of high grade stenosis (60%) in the left ICA. A repeat seizure here prompted Keppra 2gm IV load and Ativan. She remained obtunded. She has a h/o recurrent c-diff infecti on and has been on a course of vancomycin per [facility]. Per reports, she became altered this morning with a subsequent seizure. On exam, she is obtunded. Sluggish pupillary reaction to light with pupils large, round and equal bilaterally. She is unable to follow commands and makes unintelligible sounds, no speech. Some coughing present. No facial droop. No rigidity when moving right arm around, no BR reflex detected, multiple areas of ecchymosis noted. Same on the left arm. 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 Passive flexion of right knee with some muscle engagement from her. Babinski negative on the right. Could not obtain DTR on the knee or the Achilles. Passive flexion of the left knee with some muscle engagement in response to being moved. Unable to elicit a Babinski reflex (no upgoing or downgoing toes) and also unable to elicit DTR at the knee or the Achilles. Cardiac exam with S1/2 heard and no evidence of murmurs. Regular rate and rhythm. No edema present peripherally although she is morbidly obese, limiting this assessment somewhat. Lungs clear to auscultation. Workup includes imaging noted above and CXR with some pulmonary edema present. CBC with leukocytosis 16K, mild anemia with H/H 11/35. Chem panel with Na 133, K 5.6, AG 14, creatinine 4.7. Lactate was 2.7 with a repeat 1.4. No IVF were given to this dialysis patient. ABG with pH -new onset seizure -acute metabolic encephalopathy -hypercarbia -possible sepsis, rule out meningoencephalitis -end stage renal disease on hemodialysis -chronic prednisone use, rule out adrenal insufficiency -B12 insufficiency New onset seizure, loaded with Keppra in the ER and treated with Ativan. MRI brain reveals nonspecific multifocal subacute infarcts, vs PRES vs infectious encephalopathy. No acute intracranial hemorrhage, midline shift or abnormal extra-axial collections were seen. CTA head and neck as noted above with no large mass or intracranial bleed at this point. No evidence of anisocoria, but she is obtunded after second seizure without resolution of post ictal state. EEG now to rule out status epilepticus. She is able to wake up and focus on my voice and no nystagmus, so appears less likely. Cont Keppra and add valproic acid if repeat seizures today per neuro who is consulted. She has other reasons to be obtunded including hypercarbia which we are attempting to correct with BIPAP therapy. She has no recent infectious symptoms and was recently in the ICU for septic shock 2/2 pneumonia and given a full course of antibiotics. She remains on vancomycin for c-diff infection. LP has been ordered and waiting until safe after she received heparin for DVT prophylaxis this morning. In the meantime, we have started her on empiric Vancomycin, Rocephin and ampicillin for bacterial meningitis coverage. Adding acyclovir for HSV encephalitis coverage. She is morbidly obese with ESRD on hemodialysis. She was initially on si gnificant oxygen after seizing, but this has been tapered down to 2LPM via nasal canula. was contacted this morning, and will continue to update him with new findings or changes in her status. She is a confirmed full code per my conversation with him this morning. He also verbally consented to the LP, and noted that he was aware of the risks and benefits as he had to undergo this himself in the past. DO Anirudh I spent a total of120 minutes coordinating, documenting, and providing care for this patient excluding time spent in the performance of separately billed servi zamzam
[2023-02-21 09:38] LABS: Alanine Aminotransferase 16 U/L (7-52); Albumin Globulin Ratio 1.7 (0.9-2); Albumin Level 3.4 gm/dl (3.4-5.0); Alkaline Phosphatase 60 U/L (34-104); Anion Gap 9 (3-11); Aspartate Aminotransferase 15 U/L (13-39); BUN Creatinine Ratio 7.3 (10-20); Bilirubin,Total 0.6 mg/dl (0.2-1.0); Blood Urea Nitrogen 33 mg/dl (6-23); Calcium 9.4 mg/dl (8.6-10.3); Carbon Dioxide 29 mmol/L (21-32); Chloride 98 mmol/L (98-107); Est GFR (African American) 10.8 ml/min; Est GFR (Non-African American) 9.3 ml/min; Glucose 108 mg/dl (70-99(Fasting)); Magnesium 1.4 mg/dl (1.7-2.4); Phosphorus 5.3 mg/dl (2.5-4.9); Potassium 5.3 mmol/L (3.5-5.1); Sodium 136 mmol/L (136-145); Total Protein 5.4 gm/dl (6.0-8.3); Troponin I High Sensitivity 16.2 pg/ml (0-14)
[2023-02-21] MEDS ORDERED: SODIUM CHLORIDE 0.9% 1,000 ML IV PRN (09:43)
--- NOTE | 2023-02-21 10:09 | Nephrology Consultation ---
Date of Consultation February 21, 2023 Assessment & Plan (1) End-stage renal disease on hemodialysis: today is her dialysis day. She does have slightly high potassium as well as some degree of fluid overload and would benefit from dialysis. however I would like her to be stabilized 1st and finish the diagnostic workup for seizure. She will get dialysis later today under good supervision in PCU. Dialysis will be done at the bedside on a one-to-one basis plan is to do 3 hours of dialysis take 2 kilos on a 2K bath (2) Seizure: reviewed Neurology note as well as diagnostic workups done so far. She has been suggested to have Keppra which does need to be adjusted for her dialysis status. Will defer the dosing to the pharmacist. she is scheduled to have MRI with contrast later. ideally would like to do the dialysis after the MRI contrast is given. if we are unable to do the MRI on time her dialysis will be done tomorrow. History of Present Illness Reason for Consultation: Dialysis patient admitted with strokelike symptoms Requesting Physician: Dr. Oleary Attending Physician: Dr. Oleary History of Present Illness 67-year-old female with ESRD on chronic hemodialysis normally on hemodialysis 4 days a week was sent over from [facility] because of strokelike symptoms+ seizure-like activity. She recently had pneumonia and was admitted at [facility] and then transferred to [facility] for physical therapy and conditioning. She has been getting dialysis Sunday schedule and her last dialysis was on Sunday without any problem. She has not received dialysis so far today she was sent over to the emergency de partment In the ED she has received CT angiogram of head and neck----does not look like there has been any obvious cause for the strokelike symptom. she has been evaluated by Neurology. Keppra suggested to be given for renal dosing. she is also scheduled to have MRI with contrast done as well as lumbar puncture as part of the evaluation for seizure. patient blood pressure is actually good at this time as she normally has very low blood pressure limiting dialysis. review of systems----- unable to obtain given her mental status at this time Allergies Allergy/AdvReac Type Severity Reaction Status Date / Time avelox Allergy Unknown Uncoded 02/21/23 10:13 glucophage Allergy Unknown Uncoded 02/21/23 10:13 lisinopril Allergy Unknown Uncoded 02/21/23 10:13 Home Medications Medication Instructions Recorded Confirmed Type Milk of Magnesia 30 ml PO DAILY PRN Constipation 02/21/23 02/21/23 History Saccharomyces boulardii 250 mg 250 mg PO BID 02/21/23 02/21/23 History capsule acetylcysteine 600 mg capsule 600 mg PO DAILY 02/21/23 02/21/23 History allopurinol 100 mg tablet 100 mg PO Q2D 02/21/23 02/21/23 History (Zyloprim) atorvastatin 20 mg tablet 20 mg PO PM 02/21/23 02/21/23 History bisacodyl 10 mg rectal suppository 10 mg [place] DAILY PRN Constipation 02/21/23 02/21/23 History calcitriol 0.25 mcg capsule 0.25 mcg PO UD 02/21/23 02/21/23 History darbepoetin ulises in polysorbat 40 40 mcg subcut Q7D 02/21/23 02/21/23 History mcg/0.4 mL in polysorbate injection syringe dextrose 50 % in water (D50W) 0 mg IV DIRECTED PRN 02/21/23 02/21/23 History Hypoglycemia dextrose 50 % in water (D50W) 25 ml IV DIRECTED PRN 02/21/23 02/21/23 History Hypoglycemia dextrose 50 % in water (D50W) 50 ml IV DIRECTED PRN 02/21/23 02/21/23 History Hypoglycemia docusate sodium 100 mg capsule 100 mg PO BID 02/21/23 02/21/23 History doxycycline hyclate 100 mg capsule 100 mg PO BID 02/21/23 02/21/23 History dulaglutide 0.75 mg/0.5 mL 0.75 mg subcut WK 02/21/23 02/21/23 History subcutaneous pen injector (Trulicity) fluticasone fur. 100 mcg-umeclid 1 inh inhalation DAILY 02/21/23 02/21/23 History 62.5 mcg-vilant 25 mcg inhalat.powder (Trelegy Ellipta) glucagon 1 mg INJ DIRECTED PRN 02/21/23 02/21/23 History Hypoglycemia heparin (porcine) 7,500 unit/mL 7,500 unit Q12H 02/21/23 02/21/23 History injection syringe insulin glargine 100 unit/mL 12 unit subcut QAM 02/21/23 02/21/23 History subcutaneous solution (Lantus U-100 Insulin) loperamide 2 mg capsule 4 mg PO BID PRN Loose Stool 02/21/23 02/21/23 History metoprolol succinate 25 mg 12.5 mg PO Q12H 02/21/23 02/21/23 History tablet,extended release 24 hr midodrine 5 mg tablet 10 mg PO TID 02/21/23 02/21/23 History montelukast 10 mg tablet 10 mg PO DAILY 02/21/23 02/21/23 History multivitamin 1 tab PO DAILY 02/21/23 02/21/23 History ondansetron 4 mg disintegrating 4 mg PO Q4H PRN NAUSEA 02/21/23 02/21/23 History tablet pantoprazole 20 mg tablet,delayed 20 mg PO DAILY 02/21/23 02/21/23 History release polyethylene glycol 3350 17 17 g PO DIRECTED PRN CONSTI 02/21/23 02/21/23 History gram/dose oral powder (Miralax) prednisone 10 mg tablet 10 mg PO DAILY 02/21/23 02/21/23 History pregabalin 25 mg capsule 25 mg PO DAILY 02/21/23 02/21/23 History propafenone 150 mg tablet 150 mg PO Q12H 02/21/23 02/21/23 History roflumilast 500 mcg tablet 500 mcg PO DAILY 02/21/23 02/21/23 History ropinirole 0.25 mg tablet 0.25 mg PO BID 02/21/23 02/21/23 History sennosides 8.6 mg-docusate sodium 1 tab PO USEASDIRECTD PRN 02/21/23 02/21/23 History 50 mg tablet (Senokot-S) Constipation sodium chloride 0.9 % 0 ml IV DIRECTED 02/21/23 02/21/23 History sodium chloride 0.9 % 0 ml IV DIRECTED 02/21/23 02/21/23 History sodium chloride 0.9 % 1,000 ml IV DAILY PRN OTHER 02/21/23 02/21/23 History sodium phosphates 19 gram-7 133 ml [place] DAILY PRN Constipation 02/21/23 02/21/23 History gram/118 mL enema (Fleet Enema) vancomycin 125 mg capsule 125 mg PO DAILY 02/21/23 02/21/23 History Patient History Medical History Anemia of chronic disease C. difficile diarrhea Chronic respiratory failure with hypoxia COPD (chronic obstructive pulmonary disease) Diabetic retinopathy Dislocation of right shoulder joint DM II (diabetes mellitus, type II), controlled End-stage renal disease on hemodialysis GERD (gastroesophageal reflux disease) HLD (hyperlipidemia) Humeral surgical neck fracture Iron deficiency Obesity hypoventilation syndrome JULIETH (obstructive sleep apnea) Paroxysmal A-fib Peripheral vascular disease Restrictive lung disease Seizure Surgical History Amputation of left great toe AVF (arteriovenous fistula) H/O Spinal surgery History of bronchoscopy Hx of colonoscopy Hx of sinus surgery Hx of tubal ligation Family History Other Family history non-contributory Social History Smoking Status: Former smoker Tobacco Type: Cigarettes Hx Alcohol Use: No Hx Substance Use: No Preferred Language: Croatian Feels Safe at Home: Yes Physical Exam Physical Exam: patient barely open eyes. She did not answer any question not followed any command. Constitutional: appears quite sick Neck: supple no JVD Respiratory: bilateral decreased breath sound but poor quality exam Cardiovascular: regular rate and rhythm so systolic murmur heard edema 1+ Gastrointestinal (Abdomen): soft nontender Skin: No rash Results & Data Vital Signs (Past 12 Hours) Vital Signs Temp Pulse Resp BP Pulse Ox O2 Del Method O2 Flow Rate 02/21/23 09:15 84 16 100 6 02/21/23 09:15 151/58 H 02/21/23 09:01 140/67 02/21/23 09:01 88 16 100 15 02/21/23 09:00 92 H 18 100 15 02/21/23 08:45 97 H 18 99 15 02/21/23 08:44 109 H 21 98 15 02/21/23 08:44 161/88 H 02/21/23 08:30 80 24 96 2 02/21/23 08:19 84 19 95 2 02/21/23 09:25 100 Nasal Cannula, Non-rebreather 15 02/21/23 08:35 56 L Nasal Cannula, Non-rebreather 2 02/21/23 07:47 35.9 C L 88 26 H 149/84 H 98 Nasal Cannula 2 02/21/23 08:24 83
[2023-02-21 10:15] LABS: Base Excess ABG 0.7 mEq/L (-9-1.8); HCO3 ABG 28 mmol/L (19-24); Oxygen Saturation ABG 94.7 % (90-95); PCO2 ABG 54 mmHg (35-46); PO2 ABG 76 mmHg (80-95); pH ABG 7.32 (7.35-7.45)
[2023-02-21 10:18] LABS: Allen Test POS (Pos)
[2023-02-21 10:23] LABS: Procalcitonin 0.32 ng/ml (0-0.5)
[2023-02-21] MEDS ORDERED: MAGNESIUM SULFATE / D5W 1 GM/100 ML BAG IV ONE (11:04)
[2023-02-21] MEDS ORDERED: Patient's HEIGHT &/or WEIGHT Needed STA ×2 (11:48→14:16)
[2023-02-21] MEDS ORDERED: VANCOMYCIN CONSULT ACTIVE PRN (11:55)
[2023-02-21] MEDS ORDERED: SULBACTAM SOD IV SCH (12:00)
[2023-02-21] MEDS ORDERED: AMPICILLIN IV SCH (12:00)
[2023-02-21] MEDS ORDERED: SODIUM CHLORIDE 0.9% IV SCH (12:00)
[2023-02-21 12:04] LABS: Lyme Ab IgG w/WB Rflx Negative (Negative); Lyme Ab IgM w/WB Rflx Negative (Negative)
[2023-02-21] MEDS ORDERED: AMPICILLIN 2,000 MG in SODIUM CHLOR 0.9% AD-VAN 100 ML IV SCH (12:30)
--- NOTE | 2023-02-21 12:49 | Neurology Consultation ---
Date of Consultation February 21, 2023 Assessment & Plan (1) Seizure: (2) Chronic respiratory failure with hypoxia: (3) Peripheral vascular disease: (4) End-stage renal disease on hemodialysis: (5) Peripheral neuropathy: Plan patient had new onset seizures today with altered mental status. Certainly it could be all postictal ( and post Ativan effect), but other etiologies for encephalopathy need to be evaluated. On neurologic examination she is a ton did some likely from the Ativan but is arousable and has no obvious focal neurologic deficits or meningeal signs. She does not have speech. A stroke cannot be excluded. Meningoencephalitis cannot be excluded although I think this is less likely. She does have a history, however, of sepsis and recent pulmonary infection. Patient has a peripheral neuropathy likely secondary to the diabetes. 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 Arterial blood gas showed a PO2 of 76. there is a concern for aspiration as well. Recommendations: 1. replace magnesium as you are doing. Hypomagnesemia can lower seizure threshold by itself. 2. continue levetiracetam and doses save for her renal disease ( defer to nephrology). 3. Obtain MRI of the brain with without contrast 4. LP to evaluate for infectious or inflammatory diseases 5. if she has additional seizures, consider valproic acid IV. Again, would have to clear with Nephrology as to reasonable loading and maintenance doses if this medication was used , as it is renally excreted. It has the advantage of not altering mental status 6. Avoid benzodiazepines in any other SPLUNK DEVELOPER altering medication. 7. I will follow and re-evaluate after the above. Overall, I spent a total of the 80 minutes with this case including review of records, review of CT films, direct evaluation the patient at bedside, report generation, and discussion of the case with the RN and Fouzia Montoya PA-C at bedside. History of Present Illness Reason for Consultation: patient is a 67-year-old, who I was asked to see at the request of Fouzia Montoya PA-C , for neurologic consultation regarding new seizures Requesting Physician: Fouzia Montoya PA-C Attending Physician: Arabella Oleary MD History of Present Illness this patient has a history of end-stage renal disease on hemodialysis with left AV fistula, type 2 diabetes, polyneuropathy, dyslipidemia, chronic respiratory failure with hypoxia, hypoventilation syndrome, COPD, obstructive sleep apnea, restrictive lung disease, paroxysmal atrial fibrillation (not on anticoagulation ) , and peripheral vascular disease. She has anemia of chronic disease and iron deficiency history. Patient was admitted on February 08 to [facility] for fatigue, decreased appetite, low-grade fever, and generalized weakness. She was discovered to be septic with pneumonia. She was given IV antibiotics. Blood cultures apparently were positive for Clostridium perfringens. At the time of discharge February 13 , her sepsis is cleared. She had C difficile treated with vancomycin. She was switched to doxycycline p.o. and sent to [facility] February 13. This morning, the patient was last known well at 5:00 a.m.. She began to be more confused and dysarthric with worsening generalized weakness. There was a witnessed seizure and she was transferred to [facility] emergency room. She arrived to the emergency room at 7:47 a.m. February 21, with a temperature of 35.9, pulse of 88, respiratory rate 26, blood pressure 149/84, and O2 saturation 98%. She has continued with the low temp. In the emergency room, Apparently on arrival she had a witnessed seizure and was given 1 mg Ativan IV and 2 g levetiracetam IV. She was also treated as a potential stroke patient. She remained obtunded with no further seizure activity. When I saw the patient around 1130, the patient was stable under a warming blanket with no further seizure activity. CBC showed a white count of 16.7 with hemoglobin of 11.0 and hematocrit of 35.6. Chem profile was remarkable for sodium of 133, potassium of 5.3, BUN of 32 and creatinine of 4.55. Lactate was elevated at 2.7 glucose was 108. phosphorus was mildly high at 5.3 and magnesium low at 1.4. Lyme antibodies were negative, B12 was 300 , TSH was 1.1, and procalcitonin was normal at 0.32. Liver profile was unremarkable. CT scan of the head showed no acute changes. CTA of the head revealed high- grade stenosis of the cavernous segment of the left internal carotid artery and 60% stenosis in the left petrous segment. No other vascular anomaly was noted. CTA of the neck showed no other vascular anomalies. Allergies Allergy/AdvReac Type Severity Reaction Status Date / Time avelox Allergy Unknown Uncoded 02/21/23 10:13 glucophage Allergy Unknown Uncoded 02/21/23 10:13 lisinopril Allergy Unknown Uncoded 02/21/23 10:13 Home Medications Medication Instructions Recorded Confirmed Type Milk of Magnesia 30 ml PO DAILY PRN Constipation 02/21/23 02/21/23 History Saccharomyces boulardii 250 mg 250 mg PO BID 02/21/23 02/21/23 History capsule acetylcysteine 600 mg capsule 600 mg PO DAILY 02/21/23 02/21/23 History allopurinol 100 mg tablet 100 mg PO Q2D 02/21/23 02/21/23 History (Zyloprim) atorvastatin 20 mg tablet 20 mg PO PM 02/21/23 02/21/23 History bisacodyl 10 mg rectal suppository 10 mg MO DAILY PRN Constipation 02/21/23 02/21/23 History calcitriol 0.25 mcg capsule 0.25 mcg PO UD 02/21/23 02/21/23 History darbepoetin ulises in polysorbat 40 40 mcg subcut Q7D 02/21/23 02/21/23 History mcg/0.4 mL in polysorbate injection syringe dextrose 50 % in water (D50W) 0 mg IV DIRECTED PRN 02/21/23 02/21/23 History Hypoglycemia dextrose 50 % in water (D50W) 25 ml IV DIRECTED PRN 02/21/23 02/21/23 History Hypoglycemia dextrose 50 % in water (D50W) 50 ml IV DIRECTED PRN 02/21/23 02/21/23 History Hypoglycemia docusate sodium 100 mg capsule 100 mg PO BID 02/21/23 02/21/23 History doxycycline hyclate 100 mg capsule 100 mg PO BID 02/21/23 02/21/23 History dulaglutide 0.75 mg/0.5 mL 0.75 mg subcut WK 02/21/23 02/21/23 [facility] fluticasone fur. 100 mcg-umeclid 1 inh inhalation DAILY 02/21/23 02/21/23 History 62.5 mcg-vilant 25 mcg inhalat.powder (Trelegy Ellipta) glucagon 1 mg INJ DIRECTED PRN 02/21/23 02/21/23 History Hypoglycemia heparin (porcine) 7,500 unit/mL 7,500 unit Q12H 02/21/23 02/21/23 History injection syringe insulin glargine 100 unit/mL 12 unit subcut QAM 02/21/23 02/21/23 History subcutaneous solution (Lantus U-100 Insulin) loperamide 2 mg capsule 4 mg PO BID PRN Loose Stool 02/21/23 02/21/23 History metoprolol succinate 25 mg 12.5 mg PO Q12H 02/21/23 02/21/23 History tablet,extended release 24 hr midodrine 5 mg tablet 10 mg PO TID 02/21/23 02/21/23 History montelukast 10 mg tablet 10 mg PO DAILY 02/21/23 02/21/23 History multivitamin 1 tab PO DAILY 02/21/23 02/21/23 History ondansetron 4 mg disintegrating 4 mg PO Q4H PRN NAUSEA 02/21/23 02/21/23 History tablet pantoprazole 20 mg tablet,delayed 20 mg PO DAILY 02/21/23 02/21/23 History release polyethylene glycol 3350 17 17 g PO DIRECTED PRN CONSTI 02/21/23 02/21/23 History gram/dose oral powder (Miralax) prednisone 10 mg tablet 10 mg PO DAILY 02/21/23 02/21/23 History pregabalin 25 mg capsule 25 mg PO DAILY 02/21/23 02/21/23 History propafenone 150 mg tablet 150 mg PO Q12H 02/21/23 02/21/23 History roflumilast 500 mcg tablet 500 mcg PO DAILY 02/21/23 02/21/23 History ropinirole 0.25 mg tablet 0.25 mg PO BID 02/21/23 02/21/23 History sennosides 8.6 mg-docusate sodium 1 tab PO USEASDIRECTD PRN 02/21/23 02/21/23 History 50 mg tablet (Senokot-S) Constipation sodium chloride 0.9 % 0 ml IV DIRECTED 02/21/23 02/21/23 History sodium chloride 0.9 % 0 ml IV DIRECTED 02/21/23 02/21/23 History sodium chloride 0.9 % 1,000 ml IV DAILY PRN OTHER 02/21/23 02/21/23 History sodium phosphates 19 gram-7 133 ml MO DAILY PRN Constipation 02/21/23 02/21/23 History gram/118 mL enema (Fleet Enema) vancomycin 125 mg capsule 125 mg PO DAILY 02/21/23 02/21/23 History Patient History Medical History Anemia of chronic disease C. difficile diarrhea Chronic respiratory failure with hypoxia COPD (chronic obstructive pulmonary disease) Diabetic retinopathy Dislocation of right shoulder joint DM II (diabetes mellitus, type II), controlled End-stage renal disease on hemodialysis GERD (gastroesophageal reflux disease) HLD (hyperlipidemia) Humeral surgical neck fracture Iron deficiency Obesity hypoventilation syndrome JULIETH (obstructive sleep apnea) Paroxysmal A-fib Peripheral vascular disease Restrictive lung disease Seizure Surgical History Amputation of left great toe AVF (arteriovenous fistula) H/O Spinal surgery History of bronchoscopy Hx of colonoscopy Hx of sinus surgery Hx of tubal ligation Family History Other Family history non-contributory Social History Smoking Status: Former smoker Tobacco Type: Cigarettes Hx Alcohol Use: No Hx Substance Use: No Preferred Language: Luxembour[place] Feels Safe at Home: Yes Review of Systems Review of Systems: Unobtainable due to cognitive status and Unobtainable due to reduced consciousness Exam (Neuro) Physical Exam: Patient is lying in the bed underneath warming blankets with some spontaneous movement of the head, some coughing/ throat clearing and lip movement. She has rare movements of the arms and legs spontaneously. She is having shallow but regular breathing 20-24 With voice she will open her eyes, briefly make eye contact, then closed her eyes go back to sleep. With more persistent voice and gentle shake she will open her eyes a little bit longer but always closes her eyes and goes back to sleep after few seconds eyes are conjugate pupils are 5 mm bilaterally reactive to light. Discs seem sharp. extraocular muscles seem intact but difficult to be sure. There is no facial droop and tongue is midline. She is sensitive and winces with light Face pain bilaterally. There is no ptosis or dysconjugate gaze. The patient will briefly follow some 1 step commands (wiggling fingers or toes). She will not speak but has made a no sound in response to questions. Neck is supple. There are no bruits. There are no cardiac murmurs. Arms and legs have decreased tone in the there are no noticeable tremors or other abnormal involuntary movements. The patient does have some resistance with coaxing in all major muscle groups in the arms and legs. She will withdrawal to light pain in all 4 limbs. Reflexes are 1/4 in the biceps, triceps, and brachioradialis tendons and absent in the quadriceps and Achilles tendon bilaterally. Toes are downgoing to plantar stimulation bilaterally. Results & Data Vital Signs (Past 12 Hours) Vital Signs Temp Pulse Resp BP Pulse Ox O2 Del Method O2 Flow Rate 02/21/23 10:20 169/70 H 02/21/23 10:20 86 18 96 2 02/21/23 10:18 87 17 94 2 02/21/23 10:01 163/66 H 02/21/23 10:01 86 17 94 2 02/21/23 10:00 84 15 98 2 02/21/23 09:45 85 17 97 2 02/21/23 09:45 107/72 02/21/23 09:30 83 16 100 2 02/21/23 09:30 153/53 H 02/21/23 10:25 35.9 C L 02/21/23 09:15 84 16 100 6 02/21/23 09:15 151/58 H 02/21/23 09:01 140/67 02/21/23 09:01 88 16 100 15 02/21/23 09:00 92 H 18 100 15 02/21/23 08:45 97 H 18 99 15 02/21/23 08:44 109 H 21 98 15 02/21/23 08:44 161/88 H 02/21/23 08:30 80 24 96 2 02/21/23 08:19 84 19 95 2 02/21/23 09:25 100 Nasal Cannula, Non-rebreather 15 02/21/23 08:35 56 L Nasal Cannula, Non-rebreather 2 02/21/23 07:47 35.9 C L 88 26 H 149/84 H 98 Nasal Cannula 2 02/21/23 08:24 83 PG Care Time/CCT Total # of Minutes Spent Total Time Spent with Patient: Total time spent is greater than 50% in coordination of care (as documented) at patient's floor/unit and/or counseling patient: Coding Level of Care Code 82483 INT INP/OBS CARE MIN Diagnoses Seizure R56.9 Chronic respiratory failure with hypoxia J96.11 Peripheral vascular disease I73.9 End-stage renal disease on hemodialysis N18.6; Z99.2 Peripheral neuropathy G62.9 Time Spent (min) 80
[2023-02-21] MEDS ORDERED: VANCOMYCIN HCL 2,000 MG in SODIUM CHLORIDE 0.9% 500 ML IV ONE (12:56)
[2023-02-21] MEDS ORDERED: AMPICILLIN 2,000 MG in SODIUM CHLOR 0.9% AD-VAN 100 ML IV STA (12:57)
[2023-02-21] MEDS ORDERED: cefTRIAXone SODIUM 2,000 MG in DEXTROSE 5% 50 ML IV STA (12:57)
[2023-02-21] MEDS ORDERED: cefTRIAXone SODIUM 2,000 MG/70 ML BAG IV STA (13:07)
--- NOTE | 2023-02-21 14:23 | Magnetic Resonance Report ---
MR brain seizure wo con HISTORY: 67 years-old Female Seizure x 2 acute seizure-like activity COMPARISON: Head CT of same day TECHNIQUE: Multiplanar multisequence MRI the brain was obtained without the use of IV contrast. FINDINGS: Motion degraded exam. The visualized midline structures are unremarkable. No acute intracranial hemor rhage, midline shift, abnormal extra-axial collection, hydrocephalus or intracranial mass identified. Involutional changes with mild scattered T2/FLAIR hyperintense foci throughout the white matter sugg estive of chronic microvascular ischemic disease. Mesial temporal lobes are within normal limits. Add itional multifocal ill-defined cortically based increased T2/FLAIR signal noted within the right grea ter than left cerebral hemispheres and a posterior prominent distribution involving the frontoparieta l and lesser extent occipital lobes. Ill-defined areas of restricted diffusion versus T2 shine throug h these areas. Cerebral venous sinuses and major arterial flow was appeared patent. Prior bilateral lens repair. Tra ce mastoid effusions. Mild mucosal thickening of the paranasal sinuses with maxillary air-fluid level s. IMPRESSION: 1. Markedly motion degraded exam which diminishes the diagnostic value. 2. Nonspecific multifocal cortically based foci of increased T2/FLAIR signal within the right greater than left cerebral hemispheres in a posterior distribution involving the frontoparietal and to a les ser extent the occipital lobes. Findings may represent subacute infarcts, posterior reversible enceph alopathy syndrome (PRES) versus an infectious encephalopathy. 3. No acute intracranial hemorrhage, midline shift or abnormal extra-axial collections. ACT 112: Negative or not required by law. The above report was generated using voice recognition software. It may contain grammatical, syntax o r spelling errors. Electronically signed by: Zach Calderon M.D. 02/21/2023 2:22 PM
[2023-02-21] MEDS ORDERED: GLUCOSE 40% GEL 15 GM TUBE PO PRN (14:28)
[2023-02-21] MEDS ORDERED: PHARMACY GLYCEMIC MGMT CONSULT PRN (14:28)
[2023-02-21] MEDS ORDERED: ACETAMINOPHEN 650 MG SUPP PR PRN (14:28)
[2023-02-21] MEDS ORDERED: CARBOHYDRATES FOR HYPOGLYCEMIA PO PRN (14:28)
[2023-02-21] MEDS ORDERED: GLUCOSE 10 TAB/TUBE PO PRN (14:28)
[2023-02-21] MEDS ORDERED: GLUCAGON FOR INJ 1 MG VIAL SQ PRN (14:28)
[2023-02-21] MEDS: cefTRIAXone SODIUM 2,000 MG in DEXTROSE 5% 50 ML IV SCH (14:38)
--- NOTE | 2023-02-21 14:44 | Pharmacy Report ---
Pharmacy Glycemic Short Note 2 - Date of Service February 21, 2023 - Glycemic Short BSG Results (Last 24 hours): 02/21/23 02/21/23 08:16 08:33 Glucose 108 H POC Glucose (other) 101 H OUTPATIENT ANTIDIABETIC REGIMEN: * dulaglutide 0.75mg weekly * Lantus 12 units qAM HbA1C: ___ ASSESSMENT: * Patient is a 67 year old female with a history of DM2 and ESRD on iHD admitted for seizures. On dulaglutide and Lantus at home. Pharmacy consulted to assist with glycemic management while admitted. * BSG today since arrival - 101mg/dL. Currently NPO and receiving antibiotics for coverage of possible meningitis. * Will plan for Novolog q6 while NPO, mild-moderate stress scale. Hold basal for now. PLAN FOR INPATIENT GLYCEMIC CONTROL: * Hold outpatient oral diabetes medications * Basal insulin * hold * Bolus insulin * NovoLog per scale ACHS or Q6hrs while NPO * Goal Range: Low 110 mg/dL - High 140 mg/dL * Correction Factor: 30 mg/dL/unit * Nutritional / Prandial insulin per carb ratio of 1 unit per 12 grams CHO consumed
--- NOTE | 2023-02-21 15:13 | Communication Note ---
Date of Service: February 21, 2023 Anesthesia was asked to see the patient about potentially helping with an LP. Pt received 7500 of subcu heparin today at 515am at [facility]. Current WIL guidelines do not allow for her to have the procsdure from anesthesia until 515PM. The patient is in ESRD and would be expected to have a qualitative platelet issues. It would be advisable to have the procedure under fluroscopy by interventional radiology to minimize the amount of punctures to the spine. Pt would need a coagulation profile prior to LP.
[2023-02-21] MEDS ORDERED: HYDROCORTISONE SOD 100 MG in SYRINGE 0 ML IV SCH (15:15)
--- NOTE | 2023-02-21 15:17 | Pharmacy Report ---
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 Blood cultures pending. Plan for LP. Patient is ESRD on iHD and planned for dialysis today. Day # 1 of antimicrobial therapy. Plan Vancomycin * Loading dose: 2000 mg IV x 1 * ESRD on iHD - will dose by levels. If dose administered prior to HD today, a portion will be dialyzed off, however we will obtain a random level tomorrow AM given current timing (time to dialyze and redistribute) to guide further dosing. * Random level ordered for: 8/3 AM. Goal pre-dialysis concentration: 15- 20mcg/mL. Pharmacy will continue to follow and will adjust dose/frequency as necessary. Thank you.
[2023-02-21] MEDS ORDERED: PNEUMOCOCCAL POLYSACCHARIDES 25 MCG/0.5 ML VIAL/SYR IM ONE (15:42)
[2023-02-21] MEDS ORDERED: ACYCLOVIR SOD IV SCH (16:00)
[2023-02-21] MEDS ORDERED: DEXTROSE 5% IV SCH (16:00)
--- NOTE | 2023-02-21 16:43 | Fluoroscopy Report ---
Lumbar puncture under fluoroscopy INDICATION: New onset seizure; fever PROCEDURE: Procedure and risks were explained. Informed [facility] A final timeout was completed. The patient was placed prone on the fluoroscopic examination ta ble. The lower lumbar region was prepped and draped in sterile fashion. 1% buffered lidocaine was uti lized for skin anesthesia. Utilizing fluoroscopic guidance, a 22-gauge spinal needle was advanced into the intrathecal space at the L3-4 disc space. A total of 3 spot images were obtained. Opening pressure was measured at 20 cm H 2O. Approximately 8 mL of clear CSF fluid was removed and sent to lab for analysis. The needle was re moved and Band-Aid applied. The patient tolerated the procedure well. Total fluoroscopy time 0.47 min utes. DAP is 38.1 mcGy/m2. IMPRESSION: Lumbar puncture as above. Performed, dictated, and signed by Servando Son PA-C; to be co-signed by Dr. Tommie Miranda. Electronically signed by: Tommie Miranda M.D. 02/21/2023 7:08 PM
[2023-02-21] MEDS: INSULIN ASPART PER UNIT CHARGE SC SCH ×2 (16:47→18:36)
[2023-02-21 16:49] LABS: CSF Count Tube # 3
[2023-02-21 16:50] LABS: Appearance CSF Clear
[2023-02-21 16:51] LABS: Color CSF Colorless
[2023-02-21 16:52] LABS: CSF Xanthrochromic No xanthochromia
[2023-02-21 17:10] LABS: CSF Glucose 74 mg/dl (40-70)
[2023-02-21 17:16] LABS: CSF Chemistry Tube # 1
[2023-02-21] MEDS: VANCOMYCIN HCL 500 MG/100 ML ENEMA PR SCH (17:16)
[2023-02-21] MEDS: MAGNESIUM SULFATE / D5W 1 GM/100 ML BAG IV SCH ×2 (17:16→18:32)
[2023-02-21 17:28] LABS: Basophils # (auto) 0.02 K/uL (0-0.2); Basophils % (auto) 0.1 %; Hematocrit (blood only) 33.7 % (37.0-47.0); Hemoglobin 10.5 g/dl (12.0-16.0); Immature Granulocytes # (auto) 0.14 K/uL (0.01-0.20); Lymphocytes # (auto) 2.23 K/uL (1.2-3.4); Lymphocytes % (auto) 15.4 %; Mean Corpuscular Hemoglobin 28.8 pg (25.0-34.0); Mean Corpuscular Hgb Conc 31.2 g/dL (32.0-36.0); Mean Corpuscular Volume 92.6 fL (80.0-100.0); Mean Platelet Volume 12.1 fL (9.4-12.4); Monocytes # (auto) 0.97 K/uL (0.11-0.59); Monocytes % (auto) 6.7 %; Neutrophils # (auto) 11.16 K/uL (1.40-6.50); Neutrophils % (auto) 76.8 %; Platelet Count 206 K/uL (130-400); RDW Coefficient of Variation 19.1 % (11.5-14.5); RDW Standard Deviation 64.2 fL (36.4-46.3); Red Blood Count 3.64 M/uL (4.20-5.40); White Blood Count 14.52 K/ul (4.8-10.8)
[2023-02-21 17:28] LABS: Cryptococcus neoformans/ga PCR Not Detected (NotDetected); Cytomegalovirus PCR Not Detected (NotDetected); Enterovirus PCR Not Detected (NotDetected); Escherichia coli K1 PCR Not Detected (NotDetected); Haemophilius influenzae PCR Not Detected (NotDetected); Herpes Simplex Virus 1 PCR Not Detected (NotDetected); Herpes Simplex Virus 2 PCR Not Detected (NotDetected); Human Herpes Virus 6 PCR Not Detected (NotDetected); Human Parechovirus PCR Not Detected (NotDetected); Listeria monocytogenes PCR Not Detected (NotDetected); Neisseria meningitidis PCR Not Detected (NotDetected); Streptococcus agalactiae PCR Not Detected (NotDetected); Streptococcus pneumoniae PCR Not Detected (NotDetected); Varicella Zoster Virus PCR Not Detected (NotDetected)
[2023-02-21 17:46] LABS: BUN Creatinine Ratio 7.1 (10-20); Calcium 9.1 mg/dl (8.6-10.3); Creatinine Clr Calc Pharmacy 11.1 ml/min; Est GFR (African American) 10.5 ml/min; Est GFR (Non-African American) 9.1 ml/min; Potassium 5.7 mmol/L (3.5-5.1)
[2023-02-21 17:48] LABS: Troponin I High Sensitivity 24.8 pg/ml (0-14)
--- NOTE | 2023-02-21 18:33 | Electroencephalogram ---
EEG Procedure Note Date of Service February 21, 2023 Start / End Times Start Time: 1900 End Time: [address] Oleary History 68 year old with new onset seizures Home Medication List Medication Instructions Recorded Confirmed Type albuterol sulfate 2.5 mg/0.5 mL 2.5 mg inhalation TID PRN Wheezing 04/17/22 08/03/22 History solution for nebulization benzonatate 100 mg capsule 100 mg PO BID 04/17/22 08/03/22 History levalbuterol tartrate 45 2 inh inhalation Q6H 04/17/22 08/03/22 History mcg/actuation aerosol inhaler (Xopenex HFA) rosuvastatin 10 mg tablet (Crestor) 10 mg PO PM 04/17/22 08/03/22 History vitamin B complex and vitamin C 1 cap PO QAM 04/17/22 08/03/22 History no.20-folic acid 1 mg capsule Milk of Magnesia 30 ml PO DAILY PRN Constipation 02/21/23 02/21/23 History Saccharomyces boulardii 250 mg 250 mg PO BID 02/21/23 02/21/23 History capsule acetylcysteine 600 mg capsule 600 mg PO DAILY 02/21/23 02/21/23 History allopurinol 100 mg tablet 100 mg PO Q2D 02/21/23 02/21/23 History (Zyloprim) atorvastatin 20 mg tablet 20 mg PO PM 02/21/23 02/21/23 History bisacodyl 10 mg rectal suppository 10 mg IN DAILY PRN Constipation 02/21/23 02/21/23 History calcitriol 0.25 mcg capsule 0.25 mcg PO UD 02/21/23 02/21/23 History darbepoetin ulises in polysorbat 40 40 mcg subcut Q7D 02/21/23 02/21/23 History mcg/0.4 mL in polysorbate injection syringe dextrose 50 % in water (D50W) 0 mg IV DIRECTED PRN 02/21/23 02/21/23 History Hypoglycemia dextrose 50 % in water (D50W) 25 ml IV DIRECTED PRN 02/21/23 02/21/23 History Hypoglycemia dextrose 50 % in water (D50W) 50 ml IV DIRECTED PRN 02/21/23 02/21/23 History Hypoglycemia docusate sodium 100 mg capsule 100 mg PO BID 02/21/23 02/21/23 History doxycycline hyclate 100 mg capsule 100 mg PO BID 02/21/23 02/21/23 History dulaglutide 0.75 mg/0.5 mL 0.75 mg subcut WK 02/21/23 02/21/23 History subcutaneous pen injector (Trulicity) fluticasone fur. 100 mcg-umeclid 1 inh inhalation DAILY 02/21/23 02/21/23 History 62.5 mcg-vilant 25 mcg inhalat.powder (Trelegy Ellipta) glucagon 1 mg INJ DIRECTED PRN 02/21/23 02/21/23 History Hypoglycemia heparin (porcine) 7,500 unit/mL 7,500 unit Q12H 02/21/23 02/21/23 History injection syringe insulin glargine 100 unit/mL 12 unit subcut QAM 02/21/23 02/21/23 History subcutaneous solution (Lantus U-100 Insulin) loperamide 2 mg capsule 4 mg PO BID PRN Loose Stool 02/21/23 02/21/23 History metoprolol succinate 25 mg 12.5 mg PO Q12H 02/21/23 02/21/23 History tablet,extended release 24 hr midodrine 5 mg tablet 10 mg PO TID 02/21/23 02/21/23 History montelukast 10 mg tablet 10 mg PO DAILY 02/21/23 02/21/23 History multivitamin 1 tab PO DAILY 02/21/23 02/21/23 History ondansetron 4 mg disintegrating 4 mg PO Q4H PRN NAUSEA 02/21/23 02/21/23 History tablet pantoprazole 20 mg tablet,delayed 20 mg PO DAILY 02/21/23 02/21/23 History release polyethylene glycol 3350 17 17 g PO DIRECTED PRN CONSTI 02/21/23 02/21/23 History gram/dose oral powder (Miralax) prednisone 10 mg tablet 10 mg PO DAILY 02/21/23 02/21/23 History pregabalin 25 mg capsule 25 mg PO DAILY 02/21/23 02/21/23 History propafenone 150 mg tablet 150 mg PO Q12H 02/21/23 02/21/23 History roflumilast 500 mcg tablet 500 mcg PO DAILY 02/21/23 02/21/23 History ropinirole 0.25 mg tablet 0.25 mg PO BID 02/21/23 02/21/23 History sennosides 8.6 mg-docusate sodium 1 tab PO USEASDIRECTD PRN 02/21/23 02/21/23 History 50 mg tablet (Senokot-S) Constipation sodium chloride 0.9 % 0 ml IV DIRECTED 02/21/23 02/21/23 History sodium chloride 0.9 % 0 ml IV DIRECTED 02/21/23 02/21/23 History sodium chloride 0.9 % 1,000 ml IV DAILY PRN OTHER 02/21/23 02/21/23 History sodium phosphates 19 gram-7 133 ml IN DAILY PRN Constipation 02/21/23 02/21/23 History gram/118 mL enema (Fleet Enema) vancomycin 125 mg capsule 125 mg PO DAILY 02/21/23 02/21/23 History Inpatient Medication List Ceftriaxone Sodium 2,000 mg/ (Dextrose) 70 mls @ 100 mls/hr IV Q12H [facility]; Protocol Stop: 03/03/23 11:59 Last Infusion: 02/21/23 16:16 Dose: 0 mls/hr Documented By: Admin: 02/21/23 14:38 Dose: 100 mls/hr Documented By: AUSTEN Hydrocortisone Sodium (Succinate 100 mg/ Syringe) 2 mls @ 4 mls/min IV Q8H [facility] Stop: 03/23/23 15:14 Last Admin: 02/21/23 16:42 Dose: 4 mls/min Documented By: AM Insulin Aspart (Insulin Aspart Per Unit Charge) 0 units SC Q6 [facility] Stop: 03/23/23 14:27 Last Admin: 02/21/23 16:47 Dose: Not Given Documented By: AM Co-signed By: JACKIE Vancomycin HCl (Vancomycin Hcl 500 Mg/100 Ml Enema) 500 mg IN DAILY [facility] Stop: 03/03/23 15:59 Last Admin: 02/21/23 17:16 Dose: Not Given Documented By: KTS Discontinued Medications Levetiracetam 2,000 mg/ Sodium (Chloride) 270 mls @ 999 mls/hr IV NOW STA Stop: 02/21/23 09:06 Last Infusion: 02/21/23 09:45 Dose: 0 mls/hr Documented By: Admin: 02/21/23 09:12 Dose: 999 mls/hr Documented By: MANJINDER Magnesium Sulfate/Dextrose (Magnesium Sulfate / D5w) 1 gm in 100 mls @ 50 mls/hr IV ONE ONE Stop: 02/21/23 13:03 Last Infusion: 02/21/23 17:51 Dose: 0 mls/hr Documented By: Admin: 02/21/23 16:15 Dose: 50 mls/hr Documented By: AUSTEN Vancomycin HCl 2,000 mg/ (Sodium Chloride) 540 mls @ 200 mls/hr IV NOW ONE Stop: 02/21/23 15:37 Last Admin: 02/21/23 16:16 Dose: 200 mls/hr Documented By: AUSTEN Ampicillin Sodium 2,000 mg/ (Sodium Chloride) 100 mls @ 200 mls/hr IV Q12H [facility] Stop: 03/03/23 12:29 Last Infusion: 02/21/23 16:16 Dose: 0 mls/hr Documented By: Admin: 02/21/23 14:38 Dose: 200 mls/hr Documented By: AUSTEN Ampicillin Sodium 2,000 mg/ (Sodium Chloride) 100 mls @ 200 mls/hr IV NOW STA Stop: 02/21/23 13:26 Last Admin: 02/21/23 14:39 Dose: Not Given Documented By: AUSTEN Magnesium Sulfate/Dextrose (Magnesium Sulfate / D5w) 1 gm in 100 mls @ 50 mls/hr IV Q2H [facility] Stop: 02/21/23 17:29 Last Admin: 02/21/23 17:16 Dose: 50 mls/hr Documented By: AUSTEN Acyclovir Sodium 380 mg/ (Dextrose) 107.6 mls @ 100 mls/hr IV Q24H [facility]; Pr otocol Stop: 03/03/23 15:59 Last Infusion: 02/21/23 17:15 Dose: 0 mls/hr Documented By: Admin: 02/21/23 16:42 Dose: 100 mls/hr Documented By: AM Ioversol (Ioversol 350 Mg 125ml Prefilled Syringe) 119 ml IV ONCE ONE Stop: 02/21/23 08:16 Last Admin: 02/21/23 08:12 Dose: 119 ml Documented By: BRJustine Lorazepam (Lorazepam 2 Mg/1 Ml Vial) Confirm Administered Dose 2 mg .ROUTE .STK- MED ONE Stop: 02/21/23 08:41 Last Admin: 02/21/23 09:13 Dose: Not Given Documented By: MANJINDER Lorazepam (Lorazepam 2 Mg/1 Ml Vial) 1 mg IV NOW STA Stop: 02/21/23 08:46 Last Admin: 02/21/23 08:50 Dose: 1 mg Documented By: MANJINDER Miscellaneous (Patient's Height &/Or Weight Needed) 1 each N/A NOW STA Stop: 02/21/23 11:49 Last Admin: 02/21/23 14:33 Dose: Not Given Documented By: AUSTEN Description This is a 21 electrode EEG with a single channel dedicated to limited EKG. The electrodes were placed in accordance with the International 10-20 system. Interpretation The predominant background activity consists of an irregular 5-6 Hz activity, of up to 40 mV in amplitude,seen symmetrically distributed diffusely over the regions bilaterally. This activity attenuates little with eye-opening and other alerting procedures. Photic stimulation was performed and elicited no change in the background activity and no abnormal responses were seen. Hyperventilation was not performed. A mild amount of muscle and movement artifact activity contaminated the recording, yet did not hinder interpretation to any significant degree. Throughout the recording, no focal abnormalities or potentially epileptogenic discharges are seen. The patient did not enter drowsiness or sleep. In summary, this EEG was abnormal during wakefulnes. No focal abnormalities or potentially epileptogenic discharges,were seen, but there was mild to moderate diffuse slowing of the background. Clinical Correlation The abscence of potentially epileptogenic activity does not exclude a seizure disorder, since interictally, EEGs can be normal. The slowing is consistent with an encephalopathy which could be due to a wide variety of causes. [facility] EEG Procedure Codes Indication for Procedure (1) Seizure: Neurology Neurology: 32313 EEG include record awake & drowsy
[2023-02-21] MEDS: METOPROLOL TARTRATE 1 MG/ML VIAL IV SCH ×2 (18:40→23:48)
[2023-02-21] MEDS: levETIRAcetam 1,000 MG in 0.9 % SODIUM CHLORIDE 100 ML IV SCH (19:46)
[2023-02-21] MEDS ORDERED: STAT IV STA (20:46)
[2023-02-21] MEDS ORDERED: DEXTROSE 50% 50 ML SYRINGE IV ONE (20:46)
[2023-02-21] MEDS ORDERED: CALCIUM GLUCONATE 10% 1,000 MG in DEXTROSE 5% 50 ML IV ONE (21:00)
[2023-02-21] MEDS ORDERED: INSULIN HUMAN REGULAR PER UNIT 10 UNITS in SYRINGE 9.9 ML IV ONE (21:00)
[2023-02-21 21:34] LABS: Base Excess ABG -0.8 mEq/L (-9-1.8); HCO3 ABG 24 mmol/L (19-24); Oxygen Saturation ABG 97.8 % (90-95); PCO2 ABG 41 mmHg (35-46); PO2 ABG 89 mmHg (80-95); pH ABG 7.38 (7.35-7.45)
[2023-02-21 22:34] LABS: Allen Test POS (Pos)
[2023-02-22 00:16] LABS: Calcium 9.8 mg/dl (8.6-10.3); Creatinine Clr Calc Pharmacy 10.3 ml/min; Est GFR (African American) 9.7 ml/min; Est GFR (Non-African American) 8.3 ml/min; Potassium 5.8 mmol/L (3.5-5.1)
[2023-02-22] MEDS: INSULIN ASPART PER UNIT CHARGE SC SCH ×4 (00:26→17:39)
[2023-02-22] MEDS ORDERED: STAT IV STA (00:29)
[2023-02-22] MEDS ORDERED: CALCIUM GLUCONATE 10% 1,000 MG in DEXTROSE 5% 50 ML IV ONE (00:29)
[2023-02-22] MEDS ORDERED: DEXTROSE 50% 50 ML SYRINGE IV STA ×2 (00:29→00:47)
[2023-02-22] MEDS ORDERED: INSULIN HUMAN REGULAR PER UNIT 10 UNITS in SYRINGE 9.9 ML IV STA (00:35)
[2023-02-22] MEDS ORDERED: INSULIN HUMAN REGULAR PER UNIT 5 UNITS in SYRINGE 4.95 ML IV STA (00:50)
[2023-02-22] MEDS: cefTRIAXone SODIUM 2,000 MG in DEXTROSE 5% 50 ML IV SCH ×2 (02:19→14:40)
[2023-02-22] MEDS: METOPROLOL TARTRATE 1 MG/ML VIAL IV SCH ×4 (05:21→22:26)
[2023-02-22 05:27] LABS: Bilirubin,Total 0.5 mg/dl (0.2-1.0); Calcium 9.9 mg/dl (8.6-10.3); Potassium 5.8 mmol/L (3.5-5.1)
[2023-02-22 05:49] LABS: Albumin Globulin Ratio 1.5 (0.9-2); BUN Creatinine Ratio 7.4 (10-20); Creatinine Clr Calc Pharmacy 10.4 ml/min; Est GFR (African American) 9.9 ml/min; Est GFR (Non-African American) 8.5 ml/min; Globulin 2.7 gm/dl (2.5-4.0); Total Protein 6.7 gm/dl (6.0-8.3)
[2023-02-22 06:22] LABS: Hematocrit (blood only) 38.9 % (37.0-47.0); Hemoglobin 12.2 g/dl (12.0-16.0); Mean Corpuscular Hemoglobin 29.2 pg (25.0-34.0); Mean Corpuscular Hgb Conc 31.4 g/dL (32.0-36.0); Mean Corpuscular Volume 93.1 fL (80.0-100.0); Mean Platelet Volume 12.4 fL (9.4-12.4); Platelet Count 198 K/uL (130-400); RDW Coefficient of Variation 19.4 % (11.5-14.5); RDW Standard Deviation 65.3 fL (36.4-46.3); Red Blood Count 4.18 M/uL (4.20-5.40); White Blood Count 14.14 K/ul (4.8-10.8)
[2023-02-22 07:29] LABS: Estimated Average Glucose 131 mg/dl; Hemoglobin A1C 6.2 % (4.5-5.6)
--- NOTE | 2023-02-22 10:31 | Dialysis Progress Note ---
Date of Service February 22, 2023 Assessment & Plan Admission and Anticipated Discharge Date Admission Date: February 21, 2023 Subjective Assessment & Plan (1) End-stage renal disease on hemodialysis: She does have slightly high potassium as well as some degree of fluid overload and would benefit from dialysis. however I would like her to be stabilized 1st and finish the diagnostic workup for seizure. She will get dialysis later today under good supervision in PCU. Dialysis will be done at the bedside on a one-to-one basis plan is to do 3 hours of dialysis take 2 kilos on a 2K bath (2) Seizure: reviewed Neurology note as well as diagnostic workups done so far. She has been suggested to have Keppra which does need to be adjusted for her dialysis status. Will defer the dosing to the pharmacist. Do not do MRI Contrast today. if she needs it do tomorrow morning and will do dialysis right after that. S---Seen during dialysis. AVF fine and BP is good. Seems more alert today. She recognized me. Physical Exam Physical Exam: patient barely open eyes. She did not answer any question not followed any command. Constitutional: appears quite sick Neck: supple no JVD Respiratory: bilateral decreased breath sound but poor quality exam Cardiovascular: regular rate and rhythm so systolic murmur heard edema 1+ Gastrointestinal (Abdomen): soft nontender Skin: No rash Results & Data Vital Signs (Past 12 Hours) Vital Signs Temp Pulse Pulse Resp BP BP Pulse Ox 02/22/23 10:22 02/22/23 08:00 36.5 C 67 16 135/45 L 98 02/22/23 10:00 68 147/68 H 02/22/23 09:30 69 116/45 L 02/22/23 09:00 64 97/81 L 02/22/23 08:30 55 L 135/45 L 02/22/23 08:16 68 102/72 02/22/23 08:04 36.5 C 71 02/22/23 00:00 02/22/23 00:00 36.7 C 02/22/23 04:00 36.4 C 02/22/23 04:01 62 16 95 02/22/23 04:01 126/73 02/22/23 04:00 63 15 96 02/22/23 03:00 57 L 17 96 02/22/23 03:00 132/50 L 02/22/23 02:01 62 28 H 89 L 02/22/23 02:01 126/65 02/22/23 02:00 63 18 89 L 02/22/23 01:00 64 14 93 02/22/23 00:01 65 16 94 02/22/23 00:01 139/64 02/22/23 00:00 64 27 H 95 02/21/23 23:44 150/56 H 02/21/23 23:44 69 26 H 93 02/21/23 23:00 68 21 88 L 02/22/23 00:00 36.6 C 02/22/23 00:26 62 139/64 02/21/23 23:48 64 150/56 H 02/21/23 23:00 36.4 C O2 Del Method O2 Flow Rate 02/22/23 10:22 Nasal Cannula 2 02/22/23 08:00 Nasal Cannula 2 02/22/23 10:00 02/22/23 09:30 02/22/23 09:00 02/22/23 08:30 02/22/23 08:16 02/22/23 08:04 02/22/23 00:00 Nasal Cannula 2 02/22/23 00:00 02/22/23 04:00 02/22/23 04:01 02/22/23 04:01 02/22/23 04:00 02/22/23 03:00 02/22/23 03:00 02/22/23 02:01 02/22/23 02:01 02/22/23 02:00 02/22/23 01:00 02/22/23 00:01 02/22/23 00:01 02/22/23 00:00 02/21/23 23:44 02/21/23 23:44 02/21/23 23:00 02/22/23 00:00 02/22/23 00:26 02/21/23 23:48 02/21/23 23:00
[2023-02-22 11:05] LABS: A calco-baum cmplx NotReported Not Detected (NotDetected); Bact fragilis Not Reported Not Detected (NotDetected); C auris Not Reported Not Detected (NotDetected); Calbicans Not Reported Not Detected (NotDetected); Candida glabrata Not Reported Not Detected (NotDetected); Candida krusei Not Reported Not Detected (NotDetected); Cneoformans/gatti Not Reported Not Detected (NotDetected); Cparapsilosis Not Reported Not Detected (NotDetected); Ctropicalis Not Reported Not Detected (NotDetected); E cloacae compx Not Reported Not Detected (NotDetected); Efaecalis Not Reported Not Detected (NotDetected); Efaecium Not Reported Not Detected (NotDetected); Enterobacterales Not Reported Not Detected (NotDetected); Escherichia coli Not Reported Not Detected (NotDetected); H influenzae Not Reported Not Detected (NotDetected); K aerogenes Not Reported Not Detected (NotDetected); Koxytoca Not Reported Not Detected (NotDetected); Kpneumoniae grp Not Reported Not Detected (NotDetected); Lmonocyt Not Reported Not Detected (NotDetected); N meningitidis Not Reported Not Detected (NotDetected); P aeruginosa Not Reported Not Detected (NotDetected); Proteus spp Not Reported Not Detected (NotDetected); Salmonella spp Not Reported Not Detected (NotDetected); Smarcescens Not Reported Not Detected (NotDetected); Staph lugdunensis Not Reported Not Detected (NotDetected); Staph spp. Not Reported Not Detected (NotDetected); Staphaureus Not Reported Not Detected (NotDetected); Staphepi Not Reported Not Detected (NotDetected); Stenmaltophilia Not Reported Not Detected (NotDetected); Strep agal(GrpB) Not Reported Not Detected (NotDetected); Strep pneum Not Reported Not Detected (NotDetected); Strep pyog (GrpA) Not Reported Not Detected (NotDetected); Strep spp Not Reported DETECTED (NotDetected)
[2023-02-22 11:20] LABS: Streptococcus spp DETECTED (NotDetected)
--- NOTE | 2023-02-22 11:49 | Neurology Progress Note ---
Date of Service February 22, 2023 Assessment & Plan (1) Seizure: (2) Abnormal MRI of head: (3) Peripheral neuropathy: Plan Ppatient had new onset seizures February 21, with altered mental status. She was not very responsive yesterday but today she is easily aroused with voice and follows one-step commands. I do not see any focal neurologic signs and there is no obvious delirium. There are no meningeal signs. Therefore, she is clinically improved. The MRI of the brain showed no evidence of acute stroke. I reviewed these films with Dr. Miranda and it is consistent with white matter disease consistent with PRES. Her blood pressure was markedly elevated. Chronic uremic syndrome can create PRES like MRI changes as well. EEG showed no focal findings or ongoing seizures. Patient has a peripheral neuropathy likely secondary to the diabetes. Recommendations: 1. continue levetiracetam and doses safe for her renal disease ( defer to nephrology). 2. Avoid benzodiazepines in any other [employer]IT[employer] O[employer]ATOR altering medication. 3. I will follow and re-evaluate after the above. Overall, I spent a total of the 55 minutes with this case including review of records, review of MRI films, direct evaluation the patient at bedside, report generation, and discussion of the case with the RN bedside, and Dr. Hyman, Including differential diagnosis and treatment options.. Admission and Anticipated Discharge Date Admission Date: February 21, 2023 Subjective Patient is not complaining of any pain or headache. Nursing reports no new issues or problems overnight or this morning. She is starting to "wake up". MRI of the brain shows patchy areas of white matter change consistent with PRES. Is a little more on the right side but it is bilateral both anterior and posterior. I reviewed these films with the radiologist. EEG, done February 21, showed generalized slowing of a mild to moderate nature without focal abnormality or potentially epileptogenic discharges. The patient has had no further seizures since admission in the ER. Currently the patient is getting hemodialysis. Earlier today CBC showed a white count of 14 ( down from 16 yesterday) with no significant anemia. Sodium is slightly low at 134 and potassium is high. BUN and creatinine are elevated as before. Hemoglobin A1c was 6.2. Liver profile was unremarkable. LP was performed yesterday and showed 1 white cell, 72 red cells, a protein of 124.8. He was cleared colorless without xanthochromia and bio fire was normal. 1 of 2 blood cultures showed gram-positive cocci in chains. Gram stain was negative in the CSF and cultures are pending Results & Data Vital Signs (Past 12 Hours) Vital Signs Temp Pulse Pulse Resp BP BP Pulse Ox 02/22/23 11:00 66 136/51 L 02/22/23 10:30 64 143/46 H 02/22/23 10:22 02/22/23 08:00 36.5 C 67 16 135/45 L 98 02/22/23 10:00 68 147/68 H 02/22/23 09:30 69 116/45 L 02/22/23 09:00 64 97/81 L 02/22/23 08:30 55 L 135/45 L 02/22/23 08:16 68 102/72 02/22/23 08:04 36.5 C 71 02/22/23 00:00 02/22/23 00:00 36.7 C 02/22/23 04:00 36.4 C 02/22/23 04:01 62 16 95 02/22/23 04:01 126/73 02/22/23 04:00 63 15 96 02/22/23 03:00 57 L 17 96 02/22/23 03:00 132/50 L 02/22/23 02:01 62 28 H 89 L 02/22/23 02:01 126/65 02/22/23 02:00 63 18 89 L 02/22/23 01:00 64 14 93 02/22/23 00:01 65 16 94 02/22/23 00:01 139/64 02/22/23 00:00 64 27 H 95 02/21/23 23:44 150/56 H 02/21/23 23:44 69 26 H 93 02/22/23 00:00 36.6 C 02/22/23 00:26 62 139/64 02/21/23 23:48 64 150/56 H O2 Del Method O2 Flow Rate 02/22/23 11:00 02/22/23 10:30 02/22/23 10:22 Nasal Cannula 2 02/22/23 08:00 Nasal Cannula 2 02/22/23 10:00 02/22/23 09:30 02/22/23 09:00 02/22/23 08:30 02/22/23 08:16 02/22/23 08:04 02/22/23 00:00 Nasal Cannula 2 02/22/23 00:00 02/22/23 04:00 02/22/23 04:01 02/22/23 04:01 02/22/23 04:00 02/22/23 03:00 02/22/23 03:00 02/22/23 02:01 02/22/23 02:01 02/22/23 02:00 02/22/23 01:00 02/22/23 00:01 02/22/23 00:01 02/22/23 00:00 02/21/23 23:44 02/21/23 23:44 02/22/23 00:00 02/22/23 00:26 02/21/23 23:48 Exam (Neuro) Physical Exam: the patient was resting with her eyes closed but opens her eyes and fixated gaze with voice. She could talk to me in tell be some simple things. She is not in pain. She could follow one-step commands. Extraocular eye muscles were intact without nystagmus. There is no facial droop. Tongue is midline. Neck was supple. Strength seems symmetrical in the arms and legs being 4/5 diffusely. Reflexes were decreased throughout toes were downgoing with plantar stimulation bilaterally. PG Care Time/CCT Total # of Minutes Spent Total Time Spent with Patient: Total time spent is greater than 50% in coordination of care (as documented) at patient's floor/unit and/or counseling patient: Coding Level of Care Code 85917 SUB INP/OBS CARE 3/50MIN Diagnoses Seizure R56.9 Abnormal MRI of head R93.0 Peripheral neuropathy G62.9 Time Spent (min) 55
[2023-02-22] MEDS: DEXTROSE 50% 50 ML SYRINGE IV PRN (12:07)
[2023-02-22] MEDS: levETIRAcetam 1,000 MG in 0.9 % SODIUM CHLORIDE 100 ML IV SCH (12:47)
[2023-02-22] MEDS: HYDROCORTISONE SOD 50 MG in SYRINGE 0 ML IV SCH ×2 (12:47→19:43)
[2023-02-22] MEDS: CYANOCOBALAMIN 1000 MCG/ML VIAL IM SCH (12:48)
[2023-02-22] MEDS: VANCOMYCIN HCL 500 MG/100 ML ENEMA PR SCH (14:22)
--- NOTE | 2023-02-22 14:24 | Pharmacy Report ---
Pharmacy PK ABX Note - Date of Service February 22, 2023 - Assessment and Plan Assessment 02/22: Awaiting ID assessment for further antimicrobial changes per hospitalist team, remains on ceftriaxon/vancomycin. Ampicillin was discontinued last PM. Blood cultures 07/24 growing strep species. MRSA nasal swab negative. Patient received dialysis today. LP biofire negative. Restarted vancomycin 125 mg PO for chronic C. diff. 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 Blood cultures pending. Plan for LP. Patient is ESRD on iHD and planned for dialysis today. Day # 1 of antimicrobial therapy. Plan 02/22: * Vancomycin level 20.7 mcg/mL this morning, estimate ~14.5 mcg/mL following dialysis * Redose with 1000 mg x 1 this afternoon * Level with AM labs 02/21: Vancomycin * Loading dose: 2000 mg IV x 1 * ESRD on iHD - will dose by levels. If dose administered prior to HD today, a portion will be dialyzed off, however we will obtain a random level tomorrow AM given current timing (time to dialyze and redistribute) to guide further dosing. * Random level ordered for: 02/22 AM. Goal pre-dialysis concentration: 15- 20mcg/mL. Pharmacy will continue to follow and will adjust dose/frequency as necessary. Thank you.
--- NOTE | 2023-02-22 14:27 | Pharmacy Report ---
Pharmacy Glycemic Short Note 2 - Date of Service February 22, 2023 - Glycemic Short BSG Results (Last 24 hours): 02/21/23 02/21/23 02/21/23 16:46 17:08 18:34 Glucose 128 H POC Glucose 104 H 113 H 02/21/23 02/22/23 02/22/23 23:14 04:54 11:58 Glucose 133 H 86 POC Glucose 61 L* 02/22/23 12:18 Glucose POC Glucose 78 OUTPATIENT ANTIDIABETIC REGIMEN: * dulaglutide 0.75mg weekly * Lantus 12 units qAM HbA1C: unreliable in the setting of HD ASSESSMENT: 02/22: * BSGs remain at/slightly below goal but still within a normal range with the exception of noon BSG today (during/?post dialysis) * Patient has not received any insulin- continue current novolog parameters, hold basal. Patient has been NPO- monitor once patient starts to eat. 02/21 * Patient is a 67 year old female with a history of DM2 and ESRD on iHD admitted for seizures. On dulaglutide and Lantus at home. Pharmacy consulted to assist with glycemic management while admitted. * BSG today since arrival - 101mg/dL. Currently NPO and receiving antibiotics for coverage of possible meningitis. * Will plan for Novolog q6 while NPO, mild-moderate stress scale. Hold basal for now. PLAN FOR INPATIENT GLYCEMIC CONTROL: * Hold outpatient oral diabetes medications * Basal insulin * hold * Bolus insulin * NovoLog per scale ACHS or Q6hrs while NPO * Goal Range: Low 110 mg/dL - High 140 mg/dL * Correction Factor: 30 mg/dL/unit * Nutritional / Prandial insulin per carb ratio of 1 unit per 12 grams CHO consumed
--- NOTE | 2023-02-22 14:56 | Hospitalist Progress Note ---
Date of Service February 22, 2023 Assessment & Plan (1) Seizure: Plan: -Admitted to ICU -Witnessed seizure at the rehab facility -Loaded with Keppra 2 g and 1 mg Ativan in the ER after 2 witnessed separate seizures early this morning after 5 AM -Neurology consulted -appreciate neurology input and recommendation to continue seizure medications for now -MRI of the brain seizure protocol -did not show any acute stroke but did show posterior reversible encephalopathy syndrome versus an infectious etiology -LP did not show any evidence of infection and the culture is pending. Protein was noted to be high and glucose minimally low -CT of the head was reviewed and showed left ICA high-grade stenosis but no other signs of hemorrhage -Lyme titer is negative and B12 level is normal -1 out of 2 blood culture is positive for gram-positive cocci in chain -Noted history of C. difficile currently, placed on contact precautions, has been getting preventive dose of vancomycin -Seizure precautions & Fall precautions Gram-positive cocci bacteremia in chains -In 1 out of 2 bottles -Has been on intravenous ceftriaxone and vancomycin -Await ID recommendation for further antibiotics recommendation and duration -Remains afebrile and white count has been improving (2) End-stage renal disease on hemodialysis: Plan: -Nephrology consulted, discussed with Dr. Garces, will plan to do dialysis later this afternoon after patient is more stable -Give Keppra dosing postdialysis sessions as above -Left-sided AVF -Has been getting dialysis and appreciate nephrology input and recommendation (3) DM II (diabetes mellitus, type II), controlled: Plan: -ISS with Accu-Cheks ACHS -Checking an A1c -Lantus 12 U daily on hold for now with NPO status - can add later once status improves. (4) Paroxysmal A-fib: Plan: - Patient is not on formal anticoagulation - Strict n.p.o., may continue propafenone and metoprolol if able to take p.o. intake - Currently in NSR (5) Chronic respiratory failure with hypoxia: Plan: Remains stable (6) Obesity hypoventilation syndrome: (7) JULIETH (obstructive sleep apnea): (8) COPD (chronic obstructive pulmonary disease): Plan: Has been receiving IV hydrocortisone as a stress dose (9) Restrictive lung disease: Plan: -Place patient on BiPAP-noted in her heart that she wears CPAP, unknown settings at this time -ABG reviewed: pH 7.32, PCO2 54, PO2 76, HCO3 28 -Patient was reportedly vomiting per nursing, monitor for aspiration -Aspiration precautions -CXR reviewed showing cardiomegaly with pulmonary vascular congestion, interstitial coarsening suggestive of mild pulmonary edema, left hemidiaphragmatic elevation, probable small left pleural effusion with mild left lung base opacity -Breath sounds are worse on the right side at time of my exam - concern for aspiration -Pt as on doxycycline course to finish abx for treatment of LLL pneumonia s/p hospital stay at [facility] prior to her stay at [facility] (10) Peripheral vascular disease: (11) GERD (gastroesophageal reflux disease): (12) HLD (hyperlipidemia): (13) C. difficile diarrhea: Plan: -Unable to take p.o. vanc 125 mcg daily, started at the end of January,course to continue through 03/16 - Vanc retention enema daily in the meantime - Contact precaution (14) Anemia of chronic disease: (15) Iron deficiency: Plan: - Chronic, stable, is on IV iron q7D as outpatient DVT ppx: - teds, scds, obtain LP today, then resume chemical ppx CODE: Full Code Dispo: From home, likely to remain in the hospital x 1-2 days (16) Morbid obesity: (17) Acute metabolic encephalopathy: (18) Hypercarbia: Admission and Anticipated Discharge Date Admission Date: February 21, 2023 Subjective 02/22/2023 The patient was seen and examined in ICU She was admitted with witnessed seizure from [facility] Now noted to have 1 out of 2 bottles of gram-positive bacteremia in chains Clinically better and has been communicating without any acute distress at rest No more seizures since admission Review of Systems Review of Systems: All systems reviewed and are unremarkable except as noted below Physical Exam Physical Exam: Lying in bed without any acute distress but looks ill Constitutional: well developed, well nourished, + ill appearing and + morbidly obese Eyes: PERRL, conjunctivae normal, anicteric sclerae ENMT: external ear and nose normal, oropharynx normal Neck: trachea midline, no thyromegaly Respiratory: no respiratory distress Auscultation: + diminished lung sounds and + crackles (Minimal crackles bibasally) Cardiovascular: Rate/Rhythm: regular rate and regular rhythm; not tachycardic Heart Sounds: normal S1, normal S2 and + murmur Extremities: + edema (Trace to 1+ edema bilaterally) Gastrointestinal (Abdomen): Inspection/Auscultation: normal bowel sounds; abdomen not distended Percussion/Palpation: abdomen soft; abdomen nontender Musculoskeletal: No acute arthritis involving any joint Skin: Bruising involving the upper extremities. AV fistula on the left side Neurologic: Alert and awake. Generally weak and lethargic. Has been moving all limbs Results & Data Results & Data Vital Signs (Past 12 Hours) Vital Signs Temp Pulse Pulse Resp BP BP Pulse Ox 02/22/23 12:00 64 16 96/45 L 98 02/22/23 12:58 96/45 L 02/22/23 12:31 66 20 96 02/22/23 11:50 36.4 C L 62 142/55 H 02/22/23 11:30 65 133/63 02/22/23 11:00 66 136/51 L 02/22/23 10:30 64 143/46 H 02/22/23 10:22 02/22/23 08:00 36.5 C 67 16 135/45 L 98 02/22/23 10:00 68 147/68 H 02/22/23 09:30 69 116/45 L 02/22/23 09:00 64 97/81 L 02/22/23 08:30 55 L 135/45 L 02/22/23 08:16 68 102/72 02/22/23 08:04 36.5 C 71 02/22/23 04:00 36.4 C 02/22/23 04:01 62 16 95 02/22/23 04:01 126/73 02/22/23 04:00 63 15 96 02/22/23 03:00 57 L 17 96 02/22/23 03:00 132/50 L O2 Del Method O2 Flow Rate 02/22/23 12:00 Room Air 02/22/23 12:58 02/22/23 12:31 2 02/22/23 11:50 02/22/23 11:30 02/22/23 11:00 02/22/23 10:30 02/22/23 10:22 Nasal Cannula 2 02/22/23 08:00 Nasal Cannula 2 02/22/23 10:00 02/22/23 09:30 02/22/23 09:00 02/22/23 08:30 02/22/23 08:16 02/22/23 08:04 02/22/23 04:00 02/22/23 04:01 02/22/23 04:01 02/22/23 04:00 02/22/23 03:00 02/22/23 03:00 Laboratory Results Short CBC 02/21/23 02/22/23 02/22/23 Range/Units 17:08 04:54 05:32 WBC 14.52 H Cancelled Cancelled (4.8-10.8) K/ul Hgb 10.5 L Cancelled Cancelled (12.0-16.0) g/dl Hct 33.7 L Cancelled Cancelled (37.0-47.0) % Plt Count 206 Cancelled Cancelled (130-400) K/uL 02/22/23 Range/Units 05:32 WBC 14.14 H (4.8-10.8) K/ul Hgb 12.2 (12.0-16.0) g/dl Hct 38.9 (37.0-47.0) % Plt Count 198 (130-400) K/uL BMP 02/21/23 02/21/23 02/22/23 17:08 23:14 04:54 Sodium 135 L 135 L 134 L Potassium 5.7 H 5.8 H 5.8 H Chloride 100 99 98 Carbon Dioxide 26 26 22 BUN 33 H 35 H 36 H Creatinine 4.65 H* 4.99 H* D 4.88 H* Glucose 128 H 133 H 86 Calcium 9.1 9.8 9.9 Cardiac Enzymes 02/21/23 Range/Units 17:08 Total Creatine Kinase 23 L (26-192) U/L Liver Function 02/22/23 Range/Units 04:54 Total Bilirubin 0.5 (0.2-1.0) mg/dl AST 17 (13-39) U/L ALT 19 (7-52) U/L Alkaline Phosphatase 74 (34-104) U/L Albumin 4.0 (3.4-5.0) gm/dl Medications Administered Current Inpatient Medications Acetaminophen (Acetaminophen 650 Mg Supp) 650 mg IL Q6H PRN PRN Reason: fever Stop: 03/23/23 14:27 Cyanocobalamin (Cyanocobalamin 1000 Mcg/Ml Vial) 1,000 mcg IM QAM [facility] Stop: 03/24/23 08:59 Last Admin: 02/22/23 12:48 Dose: 1,000 mcg Dextrose (Dextrose 50% 50 Ml Syringe) 25 - 50 ml IV UD PRN; Protocol PRN Reason: Hypoglycemia Protocol Stop: 03/23/23 14:27 Last Admin: 02/22/23 12:07 Dose: 25 ml Glucagon (Glucagon For Inj 1 Mg Vial) 1 mg SQ UD PRN; Protocol PRN Reason: Hypoglycemia Protocol Stop: 03/23/23 14:27 Glucose (Glucose 10 Tab/Tube) 4 - 8 tab PO UD PRN; Protocol PRN Reason: Hypoglycemia Treatment Stop: 03/23/23 14:27 Glucose (Glucose 40% Gel 15 Gm Tube) 15 - 30 gm PO UD PRN; Protocol PRN Reason: Hypoglycemia Protocol Stop: 03/23/23 14:27 Levetiracetam 1,000 mg/ Sodium (Chloride) 110 mls @ 440 mls/hr IV DAILY [facility] Stop: 03/23/23 19:59 Last Infusion: 02/22/23 13:34 Dose: Infused Ceftriaxone Sodium 2,000 mg/ (Dextrose) 70 mls @ 100 mls/hr IV Q12H [facility]; Protocol Stop: 03/03/23 11:59 Last Admin: 02/22/23 14:40 Dose: 100 mls/hr Hydrocortisone Sodium (Succinate 50 mg/ Syringe) 1 mls @ 4 mls/min IV Q12H [facility] Stop: 03/24/23 08:59 Last Admin: 02/22/23 12:47 Dose: 4 mls/min Vancomycin HCl 1,000 mg/ (Sodium Chloride) 270 mls @ 200 mls/hr IV TODAY@1500 ONE Stop: 02/22/23 16:20 Insulin Aspart (Insulin Aspart Per Unit Charge) 0 units SC Q6 [facility] Stop: 03/23/23 14:27 Last Admin: 02/22/23 12:45 Dose: Not Given Metoprolol Tartrate (Metoprolol Tartrate 1 Mg/Ml Vial) 2.5 mg IV Q6 [facility] Stop: 03/23/23 17:59 Last Admin: 02/22/23 12:58 Dose: Not Given Miscellaneous (Carbohydrates For Hypoglycemia ) 15 - 30 gm PO UD PRN PRN Reason: Hypoglycemia Protocol Stop: 03/23/23 14:27 Miscellaneous Information (Vancomycin Consult Active) 1 each N/A UD PRN PRN Reason: Consult Stop: 03/23/23 11:54 Miscellaneous Information (Pharmacy Glycemic Mgmt Consult) 1 each N/A UD PRN PRN Reason: Consult Stop: 03/23/23 14:27 Raspberry (Raspberry Syrup 5 Ml Udp) 5 ml PO DAILY [facility] Stop: 03/04/23 14:59 Vancomycin HCl (Vancomycin Hcl 125 Mg/2.5ml Soln) 125 mg PO DAILY [facility] Stop: 03/24/23 14:59
[2023-02-22] MEDS ORDERED: VANCOMYCIN HCL 1,000 MG in SODIUM CHLORIDE 0.9% 250 ML IV ONE (15:00)
[2023-02-22] MEDS: VANCOMYCIN HCL 125 MG/2.5ML SOLN PO SCH (15:49)
[2023-02-22] MEDS: RASPBERRY SYRUP 5 ML UDP PO SCH (15:49)
[2023-02-22 17:25] LABS: BUN Creatinine Ratio 5.4 (10-20); Calcium 9.6 mg/dl (8.6-10.3); Creatinine Clr Calc Pharmacy 14.3 ml/min; Est GFR (African American) 15.7 ml/min; Est GFR (Non-African American) 13.6 ml/min; Potassium 4.6 mmol/L (3.5-5.1)
[2023-02-23] MEDS: INSULIN ASPART PER UNIT CHARGE SC SCH ×5 (01:48→20:40)
[2023-02-23] MEDS: cefTRIAXone SODIUM 2,000 MG in DEXTROSE 5% 50 ML IV SCH ×2 (03:58→16:10)
[2023-02-23 05:13] LABS: Basophils # (auto) 0.01 K/uL (0-0.2); Basophils % (auto) 0.1 %; Hematocrit (blood only) 33.5 % (37.0-47.0); Hemoglobin 10.5 g/dl (12.0-16.0); Immature Granulocytes # (auto) 0.07 K/uL (0.01-0.20); Immature Granulocytes % (auto) 0.6 %; Lymphocytes # (auto) 1.99 K/uL (1.2-3.4); Lymphocytes % (auto) 16.3 %; Mean Corpuscular Hemoglobin 28.9 pg (25.0-34.0); Mean Corpuscular Hgb Conc 31.3 g/dL (32.0-36.0); Mean Corpuscular Volume 92.3 fL (80.0-100.0); Mean Platelet Volume 12.2 fL (9.4-12.4); Monocytes # (auto) 0.61 K/uL (0.11-0.59); Neutrophils # (auto) 9.51 K/uL (1.40-6.50); Platelet Count 173 K/uL (130-400); RDW Coefficient of Variation 19.3 % (11.5-14.5); RDW Standard Deviation 64.3 fL (36.4-46.3); Red Blood Count 3.63 M/uL (4.20-5.40); White Blood Count 12.19 K/ul (4.8-10.8)
[2023-02-23] MEDS: METOPROLOL TARTRATE 1 MG/ML VIAL IV SCH ×4 (05:36→23:24)
[2023-02-23] MEDS: DEXTROSE 50% 50 ML SYRINGE IV PRN (06:24)
--- NOTE | 2023-02-23 07:06 | Electrocardiogram Report ---
Test Reason : Blood Pressure : / mmHG Vent. Rate : 081 BPM Atrial Rate : 000 BPM P-R Int : 242 ms QRS Dur : 146 ms QT Int : 420 ms P-R-T Axes : 000 -68 011 degrees QTc Int : 487 ms Sinus rhythm with 1st degree A-V block Right bundle branch block Left anterior fascicular block Bifascicular block Anterior infarct , age undetermined Abnormal ECG No previous ECGs available Confirmed by Ruben Parkinson ([id number] on 02/23/2023 7:05:35 AM Referred By: Confirmed By:Ruben Parkinson
[2023-02-23 08:22] LABS: HBSAG NON-REACTIVE (NON-REACTIVE); Hepatitis B Surface Ab, Quant <5 mIU/mL (> OR = 10)
[2023-02-23] MEDS: CYANOCOBALAMIN 1000 MCG/ML VIAL IM SCH (09:12)
[2023-02-23] MEDS: RASPBERRY SYRUP 5 ML UDP PO SCH ×2 (09:13→10:54)
[2023-02-23] MEDS: VANCOMYCIN HCL 125 MG/2.5ML SOLN PO SCH ×2 (09:13→10:54)
[2023-02-23] MEDS: levETIRAcetam 1,000 MG in 0.9 % SODIUM CHLORIDE 100 ML IV SCH (09:13)
[2023-02-23] MEDS: HYDROCORTISONE SOD 50 MG in SYRINGE 0 ML IV SCH ×2 (09:14→20:39)
--- NOTE | 2023-02-23 09:37 | Neurology Progress Note ---
Date of Service February 23, 2023 Assessment & Plan (1) Seizure: (2) Abnormal MRI of head: (3) Peripheral neuropathy: Plan Ppatient had new onset seizures February 21, with altered mental status. She was not very responsive February 21,but was improve some February 22 and she was easily aroused with voice and follows one-step commands. Today, February 23, she is very awake and alert and following commands well. She has no focal findings on exam and has a clear sensorium The MRI of the brain February 21, showed no evidence of acute stroke. I reviewed these films with Dr. Miranda February 22, and it is consistent with white matter disease consistent with PRES. Her blood pressure was markedly elevated on admission. Chronic uremic syndrome can create PRES like MRI changes as well. EEG showed no focal findings or ongoing seizures. Patient has a peripheral neuropathy likely secondary to the diabetes, which is stable. Recommendations: 1. continue levetiracetam and doses safe for her renal disease ( defer to nephrology). 2. Check a trough levetiracetam level. 3. Avoid benzodiazepines in any other RN ORTHOPAEDICS altering medication. Overall, I spent a total of the 35 minutes with this case including review of records, direct evaluation the patient at bedside, report generation, and discussion of the case with the RN bedside, and Dr. Hyman, Including differential diagnosis and treatment options.. Admission and Anticipated Discharge Date Admission Date: February 21, 2023 Subjective Nursing reports no new issues or seizures , and that she is much more awake and alert. The patient herself feels well although she has a little bit of blurry vision this morning. She is not in pain. Blood pressure is 127/65. CBC shows a white count now only 12. She was post dialysis yesterday. Results & Data Vital Signs (Past 12 Hours) Vital Signs Temp Pulse Pulse Resp BP Pulse Ox O2 Del Method 02/23/23 06:18 60 02/23/23 03:53 37.0 C 68 15 127/65 98 CPAP 02/23/23 02:30 62 28 H 99 02/23/23 00:00 37.1 C 62 14 124/58 L 98 CPAP 02/23/23 01:00 64 19 98 02/23/23 00:00 63 18 100 02/22/23 23:00 70 17 99 02/22/23 22:00 63 16 96 02/23/23 00:00 68 02/22/23 23:00 36.9 C 02/23/23 00:00 65 02/22/23 23:16 68 21 99 O2 Flow Rate 02/23/23 06:18 02/23/23 03:53 02/23/23 02:30 2 02/23/23 00:00 02/23/23 01:00 02/23/23 00:00 02/22/23 23:00 02/22/23 22:00 02/23/23 00:00 02/22/23 23:00 02/23/23 00:00 02/22/23 23:16 2 Exam (Neuro) Physical Exam: She is awake and alert. She is smiling and interacting better. Her speech is clear without aphasia or dysarthria. She follows one-step commands very quickly. Extraocular eye muscles seem intact without nystagmus. There is no facial droop. There are no abnormal involuntary movements. She is able to raise her legs off the bed briefly bilaterally. She can move her feet and toes. PG Care Time/CCT Total # of Minutes Spent Total Time Spent with Patient: Total time spent is greater than 50% in coordination of care (as documented) at patient's floor/unit and/or counseling patient: Coding Level of Care Code 18665 SUB INP/OBS CARE 2/35MIN Diagnoses Seizure R56.9 Abnormal MRI of head R93.0 Peripheral neuropathy G62.9 Time Spent (min) 35
--- NOTE | 2023-02-23 11:18 | Dialysis Progress Note ---
Date of Service February 23, 2023 Assessment & Plan Admission and Anticipated Discharge Date Admission Date: February 21, 2023 Subjective Subjective Assessment & Plan (1) End-stage renal disease on hemodialysis: Dialysis today 3.5 hr and take 2.5 kilo off. 2k. has some edema but BP is low. (2) Seizure: reviewed Neurology note as well as diagnostic workups done so far. She has been suggested to have Keppra which does need to be adjusted for her dialysis status.getting 1 gm daily and level being checked S---Seen during dialysis. AVF fine and BP is low now. Seems more alert today. She recognized me. Physical Exam Physical Exam: patient barely open eyes. She did not answer any question not followed any command. Constitutional: appears quite sick Neck: supple no JVD Respiratory: bilateral decreased breath sound but poor quality exam Cardiovascular: regular rate and rhythm so systolic murmur heard edema 1+ Gastrointestinal (Abdomen): soft nontender Skin: No rash Results & Data Vital Signs (Past 12 Hours) Vital Signs Temp Pulse Pulse Resp BP Pulse Ox O2 Del Method 02/23/23 06:18 60 02/23/23 03:53 37.0 C 68 15 127/65 98 CPAP 02/23/23 02:30 62 28 H 99 02/23/23 00:00 37.1 C 62 14 124/58 L 98 CPAP 02/23/23 01:00 64 19 98 02/23/23 00:00 63 18 100 02/23/23 00:00 68 02/23/23 00:00 65 O2 Flow Rate 02/23/23 06:18 02/23/23 03:53 02/23/23 02:30 2 02/23/23 00:00 02/23/23 01:00 02/23/23 00:00 02/23/23 00:00 02/23/23 00:00
--- NOTE | 2023-02-23 13:22 | Pharmacy Report ---
Pharmacy Glycemic Short Note 2 - Date of Service February 23, 2023 - Glycemic Short BSG Results (Last 24 hours): 02/22/23 02/22/23 02/22/23 16:37 17:35 22:24 Glucose 80 POC Glucose 93 81 02/23/23 02/23/23 02/23/23 06:20 06:21 06:35 Glucose POC Glucose 62 L* 67 L* 109 H 02/23/23 12:39 Glucose POC Glucose 78 OUTPATIENT ANTIDIABETIC REGIMEN: * dulaglutide 0.75mg weekly * Lantus 12 units qAM HbA1C: unreliable in the setting of HD ASSESSMENT: 02/23: * BSGs have been the low the last 24h: 03-16-75-109mg/dL. Received no insulin yesterday. * Continues NPO, on hydrocortisone 50mg IV q12h, and ceftriaxone. * Loosened Novolog goal and correction, removed carb coverage for now. 02/22: * BSGs remain at/slightly below goal but still within a normal range with the exception of noon BSG today (during/?post dialysis) * Patient has not received any insulin- continue current novolog parameters, hold basal. Patient has been NPO- monitor once patient starts to eat. 02/21 * Patient is a 67 year old female with a history of DM2 and ESRD on iHD admitted for seizures. On dulaglutide and Lantus at home. Pharmacy consulted to assist with glycemic management while admitted. * BSG today since arrival - 101mg/dL. Currently NPO and receiving antibiotics for coverage of possible meningitis. * Will plan for Novolog q6 while NPO, mild-moderate stress scale. Hold basal for now. PLAN FOR INPATIENT GLYCEMIC CONTROL: * Hold outpatient oral diabetes medications * Basal insulin * hold * Bolus insulin * NovoLog per scale ACHS or Q6hrs while NPO * Goal Range: Low 120 mg/dL - High 160 mg/dL * Correction Factor: 35 mg/dL/unit * Nutritional / Prandial insulin per carb ratio of 1 unit per __ grams CHO c onsumed
--- NOTE | 2023-02-23 16:59 | Hospitalist Progress Note ---
Date of Service February 23, 2023 Assessment & Plan (1) Asthma: (2) Sleep apnea: (3) On home oxygen therapy: (4) Chronic obstructive pulmonary disease: (5) Hyperlipidemia: (6) Dialysis patient: (7) Atrial fibrillation: (8) AV fistula: (9) Dislocated shoulder: (10) History of blood clots: (11) Pericardial effusion: (12) History of hypotension: (13) TIA (transient ischemic attack): (14) Diabetic neuropathy: (15) Diabetes mellitus, type 2: (16) History of arthroscopy: (17) History of carpal tunnel release: (18) History of lumbar surgery: (19) Seizure: Plan: -Admitted to ICU -Witnessed seizure at the rehab facility -Loaded with Keppra 2 g and 1 mg Ativan in the ER after 2 witnessed separate seizures early this morning after 5 AM -Neurology consulted -appreciate neurology input and recommendation to continue seizure medications for now -MRI of the brain seizure protocol -did not show any acute stroke but did show posterior reversible encephalopathy syndrome versus an infectious etiology -LP did not show any evidence of infection and the culture is pending. Protein was noted to be high and glucose minimally low -CT of the head was reviewed and showed left ICA high-grade stenosis but no other signs of hemorrhage -Lyme titer is negative and B12 level is normal -1 out of 2 blood culture is positive for gram-positive cocci in chain -Noted history of C. difficile currently, placed on contact precautions, has been getting preventive dose of vancomycin -Seizure precautions & Fall precautions Gram-positive cocci bacteremia in chains -In 1 out of 2 bottles -Has been on intravenous ceftriaxone and vancomycin -Await ID recommendation for further antibiotics recommendation and duration -Remains afebrile and white count has been improving (20) End-stage renal disease on hemodialysis: Plan: -Nephrology consulted, discussed with Dr. Garces, will plan to do dialysis later this afternoon after patient is more stable -Give Keppra dosing postdialysis sessions as above -Left-sided AVF -Has been getting dialysis and appreciate nephrology input and recommendation (21) DM II (diabetes mellitus, type II), controlled: Plan: -ISS with Accu-Cheks ACHS -Checking an A1c -Lantus 12 U daily on hold for now with NPO status - can add later once status improves. (22) Paroxysmal A-fib: Plan: - Patient is not on formal anticoagulation - Strict n.p.o., may continue propafenone and metoprolol if able to take p.o. intake - Currently in NSR (23) Chronic respiratory failure with hypoxia: Plan: Remains stable (24) COPD (chronic obstructive pulmonary disease): Plan: Has been receiving IV hydrocortisone as a stress dose (25) Restrictive lung disease: Plan: -Place patient on BiPAP-noted in her heart that she wears CPAP, unknown settings at this time -ABG reviewed: pH 7.32, PCO2 54, PO2 76, HCO3 28 -Patient was reportedly vomiting per nursing, monitor for aspiration -Aspiration precautions -CXR reviewed showing cardiomegaly with pulmonary vascular congestion, interstitial coarsening suggestive of mild pulmonary edema, left danay diaphragmatic elevation, probable small left pleural effusion with mild left lung base opacity -Breath sounds are worse on the right side at time of my exam - concern for aspiration -Pt as on doxycycline course to finish abx for treatment of LLL pneumonia s/p hospital stay at [facility] prior to her stay at [facility] (26) C. difficile diarrhea: Plan: -Unable to take p.o. vanc 125 mcg daily, started at the end of January,course to continue through 03/16 - Vanc retention enema daily in the meantime - Contact precaution (27) Iron deficiency: Plan: - Chronic, stable, is on IV iron q7D as outpatient DVT ppx: - teds, scds, obtain LP today, then resume chemical ppx CODE: Full Code Dispo: From home, likely to remain in the hospital x 1-2 days Admission and Anticipated Discharge Date Admission Date: February 21, 2023 Physical Exam Physical Exam: Lying in bed without any acute distress but looks ill Constitutional: well developed, well nourished, + ill appearing and + morbidly obese Eyes: PERRL, conjunctivae normal, anicteric sclerae ENMT: external ear and nose normal, oropharynx normal Neck: trachea midline, no thyromegaly Respiratory: no respiratory distress Auscultation: + diminished lung sounds and + crackles (Minimal crackles bibasally) Cardiovascular: Rate/Rhythm: regular rate and regular rhythm; not tachycardic Heart Sounds: normal S1, normal S2 and + murmur Extremities: + edema (Trace to 1+ edema bilaterally) Gastrointestinal (Abdomen): Inspection/Auscultation: normal bowel sounds; abdomen not distended Percussion/Palpation: abdomen soft; abdomen nontender Results & Data Results & Data Vital Signs (Past 12 Hours) Vital Signs Temp Pulse Pulse Resp BP BP Pulse Ox 02/23/23 15:17 100 H 17 96 02/23/23 15:17 122/53 L 02/23/23 14:24 36.6 C 96 H 132/54 L 02/23/23 14:00 104 H 107/48 L 02/23/23 13:30 98 H 115/54 L 02/23/23 08:26 69 17 98 02/23/23 08:02 155/64 H 02/23/23 08:02 75 30 H 95 02/23/23 13:00 99 H 90/58 L 02/23/23 08:00 02/23/23 08:00 68 02/23/23 12:30 97 H 127/66 02/23/23 12:00 95 H 114/30 L 02/23/23 11:30 117 H 133/62 02/23/23 11:00 95 H 88/64 L 02/23/23 10:50 77 109/62 02/23/23 10:41 36.4 C L 74 02/23/23 06:18 60 O2 Del Method 02/23/23 15:17 02/23/23 15:17 02/23/23 14:24 02/23/23 14:00 02/23/23 13:30 02/23/23 08:26 02/23/23 08:02 02/23/23 08:02 02/23/23 13:00 02/23/23 08:00 Room Air 02/23/23 08:00 02/23/23 12:30 02/23/23 12:00 02/23/23 11:30 02/23/23 11:00 02/23/23 10:50 02/23/23 10:41 02/23/23 06:18
[2023-02-23] MEDS ORDERED: Nursing to Pharmacy Communication SCH (17:00)
--- NOTE | 2023-02-23 17:10 | Hospitalist Progress Note ---
Date of Service February 23, 2023 Assessment & Plan (1) Seizure: Plan: -Admitted to ICU -Witnessed seizure at the rehab facility -Loaded with Keppra 2 g and 1 mg Ativan in the ER after 2 witnessed separate seizures early this morning after 5 AM -Neurology consulted -appreciate neurology input and recommendation to continue seizure medications for now -MRI of the brain seizure protocol -did not show any acute stroke but did show posterior reversible encephalopathy syndrome versus an infectious etiology -LP did not show any evidence of infection and the culture is pending. Protein was noted to be high and glucose minimally low -CT of the head was reviewed and showed left ICA high-grade stenosis but no other signs of hemorrhage -Lyme titer is negative and B12 level is normal -1 out of 2 blood culture is positive for gram-positive cocci in chain -Noted history of C. difficile currently, placed on contact precautions, has been getting preventive dose of vancomycin -Seizure precautions & Fall precautions -No more seizures since admission Gram-positive cocci bacteremia in chains -In 1 out of 2 bottles -Has been on intravenous ceftriaxone and vancomycin -Await ID recommendation for further antibiotics recommendation and duration -Remains afebrile and white count has been improving -Prescient ID input and recommendation -IV vancomycin has been discontinued we will continue with IV ceftriaxone for now (2) End-stage renal disease on hemodialysis: Plan: -Nephrology consulted, discussed with Dr. Garces, will plan to do dialysis later this afternoon after patient is more stable -Give Keppra dosing postdialysis sessions as above -Left-sided AVF -Has been getting dialysis and appreciate nephrology input and recommendation -Ongoing dialysis (3) DM II (diabetes mellitus, type II), controlled: Plan: -ISS with Accu-Cheks ACHS -Checking an A1c -Lantus 12 U daily on hold for now with NPO status - can add later once status improves. (4) Paroxysmal A-fib: Plan: - Patient is not on formal anticoagulation - Strict n.p.o., may continue propafenone and metoprolol if able to take p.o. intake - Currently in NSR -Went into A-fib with RVR-she missed her dose of metoprolol during noon -Advised to resume metoprolol -She has not been on any anticoagulation likely due to risk of bleeding -Will not give full anticoagulation that was discussed with the patient (5) Chronic respiratory failure with hypoxia: Plan: Remains stable (6) Obesity hypoventilation syndrome: (7) JULIETH (obstructive sleep apnea): (8) COPD (chronic obstructive pulmonary disease): Plan: Has been receiving IV hydrocortisone as a stress dose (9) Restrictive lung disease: Plan: -Place patient on BiPAP-noted in her heart that she wears CPAP, unknown settings at this time -ABG reviewed: pH 7.32, PCO2 54, PO2 76, HCO3 28 -Patient was reportedly vomiting per nursing, monitor for aspiration -Aspiration precautions -CXR reviewed showing cardiomegaly with pulmonary vascular congestion, interstitial coarsening suggestive of mild pulmonary edema, left hemidiaphragmatic elevation, probable small left pleural effusion with mild left lung base opacity -Breath sounds are worse on the right side at time of my exam - concern for aspiration -Pt as on doxycycline course to finish abx for treatment of LLL pneumonia s/p hospital stay at [facility] prior to her stay at [facility] (10) Peripheral vascular disease: (11) GERD (gastroesophageal reflux disease): (12) HLD (hyperlipidemia): (13) C. difficile diarrhea: Plan: -Unable to take p.o. vanc 125 mcg daily, started at the end of January,course to continue through 03/16 - Vanc retention enema daily in the meantime - Contact precaution (14) Anemia of chronic disease: (15) Iron deficiency: Plan: - Chronic, stable, is on IV iron q7D as outpatient DVT ppx: - teds, scds, obtain LP today, then resume chemical ppx -Resumed heparin as preventive dose of anticoagulation CODE: Full Code Dispo: From home, likely to remain in the hospital x 1-2 days (16) Morbid obesity: (17) Acute metabolic encephalopathy: (18) Hypercarbia: Admission and Anticipated Discharge Date Admission Date: February 21, 2023 Subjective 02/22/2023 The patient was seen and examined in ICU She was admitted with witnessed seizure from [facility] Now noted to have 1 out of 2 bottles of gram-positive bacteremia in chains Clinically better and has been communicating without any acute distress at rest No more seizures since admission 02/23/2023 The patient was seen and examined in ICU She is status post dialysis and has been feeling a lot better Remains pleasantly confused but does not have any acute distress Noted to have A-fib with RVR without any symptom Review of Systems Review of Systems: All systems reviewed and are unremarkable except as noted below Physical Exam Physical Exam: Lying in bed without any acute distress but looks better today Constitutional: well developed, well nourished, + ill appearing and + morbidly obese Eyes: PERRL, conjunctivae normal, anicteric sclerae ENMT: external ear and nose normal, oropharynx normal Neck: trachea midline, no thyromegaly Respiratory: no respiratory distress Auscultation: + diminished lung sounds and + crackles (Minimal crackles bibasally) Cardiovascular: Rate/Rhythm: regular rate and regular rhythm; not tachycardic Heart Sounds: normal S1, normal S2 and + murmur Extremities: + edema (Trace to 1+ edema bilaterally) Gastrointestinal (Abdomen): Inspection/Auscultation: normal bowel sounds; abdomen not distended Percussion/Palpation: abdomen soft; abdomen nontender Musculoskeletal: No acute arthritis involving any joint Skin: Bruising involving the upper extremities. AV fistula on the left side Neurologic: Alert and awake. Generally weak and lethargic. Has been moving all limbs Results & Data Results & Data Vital Signs (Past 12 Hours) Vital Signs Temp Pulse Pulse Resp BP BP Pulse Ox 02/23/23 15:17 100 H 17 96 02/23/23 15:17 122/53 L 02/23/23 14:24 36.6 C 96 H 132/54 L 02/23/23 14:00 104 H 107/48 L 02/23/23 13:30 98 H 115/54 L 02/23/23 08:26 69 17 98 02/23/23 08:02 155/64 H 02/23/23 08:02 75 30 H 95 02/23/23 13:00 99 H 90/58 L 02/23/23 08:00 02/23/23 08:00 68 02/23/23 12:30 97 H 127/66 02/23/23 12:00 95 H 114/30 L 02/23/23 11:30 117 H 133/62 02/23/23 11:00 95 H 88/64 L 02/23/23 10:50 77 109/62 02/23/23 10:41 36.4 C L 74 02/23/23 06:18 60 O2 Del Method 02/23/23 15:17 02/23/23 15:17 02/23/23 14:24 02/23/23 14:00 02/23/23 13:30 02/23/23 08:26 02/23/23 08:02 02/23/23 08:02 02/23/23 13:00 02/23/23 08:00 Room Air 02/23/23 08:00 02/23/23 12:30 02/23/23 12:00 02/23/23 11:30 02/23/23 11:00 02/23/23 10:50 02/23/23 10:41 02/23/23 06:18 Laboratory Results Short CBC 02/23/23 Range/Units 04:51 WBC 12.19 H (4.8-10.8) K/ul Hgb 10.5 L (12.0-16.0) g/dl Hct 33.5 L (37.0-47.0) % Plt Count 173 (130-400) K/uL BMP 02/22/23 16:37 Sodium 139 Potassium 4.6 D Chloride 101 Carbon Dioxide 29 BUN 18 Creatinine 3.32 H D Glucose 80 Calcium 9.6 Medications Administered Current Inpatient Medications Acetaminophen (Acetaminophen 650 Mg Supp) 650 mg FL Q6H PRN PRN Reason: fever Stop: 03/23/23 14:27 Cyanocobalamin (Cyanocobalamin 1000 Mcg/Ml Vial) 1,000 mcg IM QAM [facility] Stop: 03/24/23 08:59 Last Admin: 02/23/23 09:12 Dose: 1,000 mcg Dextrose (Dextrose 50% 50 Ml Syringe) 25 - 50 ml IV UD PRN; Protocol PRN Reason: Hypoglycemia Protocol Stop: 03/23/23 14:27 Last Admin: 02/23/23 06:24 Dose: 25 ml Glucagon (Glucagon For Inj 1 Mg Vial) 1 mg SQ UD PRN; Protocol PRN Reason: Hypoglycemia Protocol Stop: 03/23/23 14:27 Glucose (Glucose 10 Tab/Tube) 4 - 8 tab PO UD PRN; Protocol PRN Reason: Hypoglycemia Treatment Stop: 03/23/23 14:27 Glucose (Glucose 40% Gel 15 Gm Tube) 15 - 30 gm PO UD PRN; Protocol PRN Reason: Hypoglycemia Protocol Stop: 03/23/23 14:27 Heparin Sodium (Porcine) (Heparin Sod 5,000 Unit/0.5 Ml Vial) 7,500 units SQ Q12 [facility] Stop: 03/25/23 20:59 Levetiracetam 1,000 mg/ Sodium (Chloride) 110 mls @ 440 mls/hr IV DAILY [facility] Stop: 03/23/23 19:59 Last Infusion: 02/23/23 10:55 Dose: Infused Ceftriaxone Sodium 2,000 mg/ (Dextrose) 70 mls @ 100 mls/hr IV Q12H [facility]; Protocol Stop: 03/03/23 11:59 Last Admin: 02/23/23 16:10 Dose: 100 mls/hr Hydrocortisone Sodium (Succinate 50 mg/ Syringe) 1 mls @ 4 mls/min IV Q12H [facility] Stop: 03/24/23 08:59 Last Admin: 02/23/23 09:14 Dose: 4 mls/min Insulin Aspart (Insulin Aspart Per Unit Charge) 0 units SC ACHS [facility] Stop: 03/25/23 16:59 Metoprolol Tartrate (Metoprolol Tartrate 1 Mg/Ml Vial) 2.5 mg IV Q6 [facility] Stop: 03/23/23 17:59 Last Admin: 02/23/23 12:50 Dose: Not Given Miscellaneous (Carbohydrates For Hypoglycemia ) 15 - 30 gm PO UD PRN PRN Reason: Hypoglycemia Protocol Stop: 03/23/23 14:27 Miscellaneous Information (Pharmacy Glycemic Mgmt Consult) 1 each N/A UD PRN PRN Reason: Consult Stop: 03/23/23 14:27 Raspberry (Raspberry Syrup 5 Ml Udp) 5 ml PO DAILY [facility] Stop: 03/04/23 14:59 Last Admin: 02/23/23 10:54 Dose: Not Given Vancomycin HCl (Vancomycin Hcl 125 Mg/2.5ml Soln) 125 mg PO DAILY [facility] Stop: 03/24/23 14:59 Last Admin: 02/23/23 10:54 Dose: Not Given
[2023-02-23] MEDS: HEPARIN SOD 5,000 UNIT/0.5 ML VIAL SQ SCH (20:31)
[2023-02-24] MEDS: cefTRIAXone SODIUM 2,000 MG in DEXTROSE 5% 50 ML IV SCH ×2 (02:41→14:34)
[2023-02-24] MEDS: METOPROLOL TARTRATE 1 MG/ML VIAL IV SCH (05:08)
[2023-02-24 05:10] LABS: Basophils # (auto) 0.03 K/uL (0-0.2); Basophils % (auto) 0.2 %; Eosinophils # (auto) 0.03 K/uL (0-0.50); Eosinophils % (auto) 0.2 %; Hematocrit (blood only) 33.6 % (37.0-47.0); Hemoglobin 10.7 g/dl (12.0-16.0); Immature Granulocytes # (auto) 0.25 K/uL (0.01-0.20); Lymphocytes # (auto) 2.24 K/uL (1.2-3.4); Mean Corpuscular Hemoglobin 29.4 pg (25.0-34.0); Mean Corpuscular Hgb Conc 31.8 g/dL (32.0-36.0); Mean Corpuscular Volume 92.3 fL (80.0-100.0); Mean Platelet Volume 12.5 fL (9.4-12.4); Monocytes # (auto) 0.75 K/uL (0.11-0.59); Neutrophils # (auto) 9.13 K/uL (1.40-6.50); Neutrophils % (auto) 73.6 %; Platelet Count 147 K/uL (130-400); RDW Coefficient of Variation 19.5 % (11.5-14.5); RDW Standard Deviation 64.7 fL (36.4-46.3); Red Blood Count 3.64 M/uL (4.20-5.40); White Blood Count 12.43 K/ul (4.8-10.8)
[2023-02-24 05:19] LABS: BUN Creatinine Ratio 3.6 (10-20); Calcium 9.2 mg/dl (8.6-10.3); Creatinine Clr Calc Pharmacy 15.7 ml/min; Est GFR (African American) 17.6 ml/min; Est GFR (Non-African American) 15.2 ml/min; Magnesium 1.9 mg/dl (1.7-2.4); Potassium 4.4 mmol/L (3.5-5.1)
--- NOTE | 2023-02-24 07:11 | Electrocardiogram Report ---
Test Reason : Blood Pressure : / mmHG Vent. Rate : 135 BPM Atrial Rate : 127 BPM P-R Int : 000 ms QRS Dur : 132 ms QT Int : 346 ms P-R-T Axes : 000 -72 034 degrees QTc Int : 519 ms Atrial fibrillation with rapid ventricular response Right bundle branch block Left anterior fascicular block Bifascicular block Abnormal ECG No previous ECGs available Confirmed by Polo Caballero ([id number]) on 02/24/2023 7:10:48 AM Referred By: [facility] Confirmed By:Shahzad Caballero
[2023-02-24] MEDS: CYANOCOBALAMIN 1000 MCG/ML VIAL IM SCH (08:36)
[2023-02-24] MEDS: HEPARIN SOD 5,000 UNIT/0.5 ML VIAL SQ SCH ×2 (08:37→20:21)
[2023-02-24] MEDS: INSULIN ASPART PER UNIT CHARGE SC SCH ×4 (08:41→20:14)
[2023-02-24] MEDS: levETIRAcetam 1,000 MG in 0.9 % SODIUM CHLORIDE 100 ML IV SCH (08:48)
[2023-02-24] MEDS: VANCOMYCIN HCL 125 MG/2.5ML SOLN PO SCH (08:48)
[2023-02-24] MEDS: HYDROCORTISONE SOD 50 MG in SYRINGE 0 ML IV SCH (08:48)
[2023-02-24] MEDS: RASPBERRY SYRUP 5 ML UDP PO SCH (08:49)
[2023-02-24] MEDS ORDERED: METOPROLOL TARTRATE 1 MG/ML VIAL IV PRN (09:41)
[2023-02-24] MEDS: METOPROLOL SUCC 25MG EXT REL TAB PO SCH ×2 (10:14→20:18)
--- NOTE | 2023-02-24 10:52 | Nephrology Progress Note ---
Date of Service February 24, 2023 Assessment & Plan (1) Seizure: Plan: She is on Keppra per neurology. No further seizures. (2) End-stage renal disease on hemodialysis: Plan: Patient is on dialysis Sunday while in-house. She is normally home hemodialysis. Last dialysis was on Sunday. Electrolytes are stable. Patient for dialysis on Sunday. Admission and Anticipated Discharge Date Admission Date: February 21, 2023 Subjective Seen for ESRD. She feels better today. She has eaten breakfast. No shortness of breath. Still very weak Review of Systems Review of Systems: All other systems were reviewed and negative except as noted in HPI Physical Exam Physical Exam: General exam: Appears comfortable, no acute distress HEENT: Pupils are equal and reactive to light Neck: No JVD, neck is supple trachea is midline Respiratory system: Clear breath sounds bilaterally. Gastrointestinal: Abdomen is soft, non distended, non tender, bowel sounds are present CVS: Regular rate and rhythm. No murmurs, rubs or gallops Musculoskeletal: No joint or muscle tenderness Extremities: Non tender, no edema, peripheral pulses are present Neuro: Oriented, no tremors, no focal neurological deficits Skin: No rashes Results & Data Vital Signs (Past 12 Hours) Vital Signs Temp Pulse Pulse Resp BP Pulse Ox O2 Del Method 02/24/23 07:09 36.9 C 115 H 18 149/74 H 96 Room Air 02/24/23 06:17 95 H 02/24/23 03:26 BiPAP 02/24/23 00:00 95 H 02/24/23 03:10 94 H 18 96 02/24/23 02:57 36.7 C 97 H 24 144/63 H 97 BiPAP 02/24/23 00:33 117 H 02/24/23 00:29 117 H 19 96 O2 Flow Rate 02/24/23 07:09 02/24/23 06:17 02/24/23 03:26 02/24/23 00:00 02/24/23 03:10 2 02/24/23 02:57 02/24/23 00:33 02/24/23 00:29 2 Laboratory Results 02/24/23 04:20 02/24/23 04:20 WBC 12.43 H RBC 3.64 L MCV 92.3 MCH 29.4 MCHC 31.8 L RDW Std Deviation 64.7 H RDW Coeff of [place] 19.5 H Plt Count 147 MPV 12.5 H
[2023-02-24] MEDS ORDERED: ACETAMINOPHEN 325 MG TAB PO PRN (13:39)
--- NOTE | 2023-02-24 13:42 | Hospitalist Progress Note ---
Date of Service February 24, 2023 Assessment & Plan (1) Seizure: Plan: -Admitted to ICU -Witnessed seizure at the rehab facility -Loaded with Keppra 2 g and 1 mg Ativan in the ER after 2 witnessed separate seizures early this morning after 5 AM -Neurology consulted -appreciate neurology input and recommendation to continue seizure medications for now -MRI of the brain seizure protocol -did not show any acute stroke but did show posterior reversible encephalopathy syndrome versus an infectious etiology -LP did not show any evidence of infection and the culture is pending. Protein was noted to be high and glucose minimally low -CT of the head was reviewed and showed left ICA high-grade stenosis but no other signs of hemorrhage -Lyme titer is negative and B12 level is normal -1 out of 2 blood culture is positive for gram-positive cocci in chain -Noted history of C. difficile currently, placed on contact precautions, has been getting preventive dose of vancomycin -Seizure precautions & Fall precautions -No more seizures since admission -Keppra has been changed to oral Gram-positive cocci bacteremia in chains -In 1 out of 2 bottles -Has been on intravenous ceftriaxone and vancomycin -Await ID recommendation for further antibiotics recommendation and duration -Remains afebrile and white count has been improving -Prescient ID input and recommendation -IV vancomycin has been discontinued we will continue with IV ceftriaxone for now -No signs and or symptoms of infection (2) End-stage renal disease on hemodialysis: Plan: -Nephrology consulted, discussed with Dr. Garces, will plan to do dialysis later this afternoon after patient is more stable -Give Keppra dosing postdialysis sessions as above -Left-sided AVF -Has been getting dialysis and appreciate nephrology input and recommendation -Ongoing dialysis (3) DM II (diabetes mellitus, type II), controlled: Plan: -ISS with Accu-Cheks ACHS -Checking an A1c -Lantus 12 U daily on hold for now with NPO status - can add later once status improves. (4) Paroxysmal A-fib: Plan: - Patient is not on formal anticoagulation - Strict n.p.o., may continue propafenone and metoprolol if able to take p.o. intake - Currently in NSR -Went into A-fib with RVR-she missed her dose of metoprolol during noon -Advised to resume metoprolol -She has not been on any anticoagulation likely due to risk of bleeding -Will not give full anticoagulation that was discussed with the patient -Remains tachycardic around 110s -Her home dose of beta-khushbu has been added (5) Chronic respiratory failure with hypoxia: Plan: Remains stable (6) Obesity hypoventilation syndrome: (7) JULIETH (obstructive sleep apnea): (8) COPD (chronic obstructive pulmonary disease): Plan: Has been receiving IV hydrocortisone as a stress dose (9) Restrictive lung disease: Plan: -Place patient on BiPAP-noted in her heart that she wears CPAP, unknown settings at this time -ABG reviewed: pH 7.32, PCO2 54, PO2 76, HCO3 28 -Patient was reportedly vomiting per nursing, monitor for aspiration -Aspiration precautions -CXR reviewed showing cardiomegaly with pulmonary vascular congestion, interstitial coarsening suggestive of mild pulmonary edema, left hemidiaphragmatic elevation, probable small left pleural effusion with mild left lung base opacity -Breath sounds are worse on the right side at time of my exam - concern for aspiration -Pt as on doxycycline course to finish abx for treatment of LLL pneumonia s/p hospital stay at [facility] prior to her stay at [facility] (10) Peripheral vascular disease: (11) GERD (gastroesophageal reflux disease): (12) HLD (hyperlipidemia): (13) C. difficile diarrhea: Plan: -Unable to take p.o. vanc 125 mcg daily, started at the end of January,course to continue through 03/16 - Vanc retention enema daily in the meantime - Contact precaution -We will continue suppressive dose of vancomycin as before (14) Anemia of chronic disease: (15) Iron deficiency: Plan: - Chronic, stable, is on IV iron q7D as outpatient DVT ppx: - teds, scds, obtain LP today, then resume chemical ppx -Resumed heparin as preventive dose of anticoagulation CODE: Full Code Dispo: From home, likely to remain in the hospital x 1-2 days Get PT and OT evaluation Likely discharge on Sunday (16) Morbid obesity: (17) Acute metabolic encephalopathy: (18) Hypercarbia: Admission and Anticipated Discharge Date Admission Date: February 21, 2023 Subjective 02/22/2023 The patient was seen and examined in ICU She was admitted with witnessed seizure from [facility] Now noted to have 1 out of 2 bottles of gram-positive bacteremia in chains Clinically better and has been communicating without any acute distress at rest No more seizures since admission 02/23/2023 The patient was seen and examined in ICU She is status post dialysis and has been feeling a lot better Remains pleasantly confused but does not have any acute distress Noted to have A-fib with RVR without any symptom 02/24/2023 The patient was seen and examined in ICU She has been much better today and the confusion is going away No more seizures since admission No distress at rest Review of Systems Review of Systems: All systems reviewed and are unremarkable except as noted below Physical Exam Physical Exam: Lying in bed comfortably Constitutional: well developed, well nourished, + ill appearing and + obese Eyes: PERRL, conjunctivae normal, anicteric sclerae ENMT: external ear and nose normal, oropharynx normal Neck: trachea midline, no thyromegaly Respiratory: no respiratory distress Auscultation: + diminished lung sounds and + crackles (Minimal crackles at the bases) Cardiovascular: Rate/Rhythm: regular rate, regular rhythm and + tachycardic Heart Sounds: normal S1 and normal S2; no murmur Extremities: + edema (Trace edema bilaterally) Gastrointestinal (Abdomen): Inspection/Auscultation: normal bowel sounds; abdomen not distended Percussion/Palpation: abdomen soft; abdomen nontender Musculoskeletal: No acute arthritis involving any of the joint Skin: Generalized bruising involving mostly the extremities Neurologic: normal touch/pain/proprioception, moves all extremities and + confused (Pleasantly confused); no focal motor deficits Lymphatic: no cervical or axillary lymphadenopathy Results & Data Results & Data Vital Signs (Past 12 Hours) Vital Signs Temp Pulse Pulse Resp BP Pulse Ox O2 Del Method 02/24/23 11:09 36.4 C L 113 H 16 135/75 94 Room Air 02/24/23 07:09 36.9 C 115 H 18 149/74 H 96 Room Air 02/24/23 06:17 95 H 02/24/23 03:26 BiPAP 02/24/23 03:10 94 H 18 96 02/24/23 02:57 36.7 C 97 H 24 144/63 H 97 BiPAP O2 Flow Rate 02/24/23 11:09 02/24/23 07:09 02/24/23 06:17 02/24/23 03:26 02/24/23 03:10 2 02/24/23 02:57 Laboratory Results Short CBC 02/24/23 Range/Units 04:20 WBC 12.43 H (4.8-10.8) K/ul Hgb 10.7 L (12.0-16.0) g/dl Hct 33.6 L (37.0-47.0) % Plt Count 147 (130-400) K/uL BMP 02/24/23 04:20 Sodium 139 Potassium 4.4 Chloride 102 Carbon Dioxide 27 BUN 11 Creatinine 3.02 H D Glucose 99 Calcium 9.2 Medications Administered Current Inpatient Medications Acetaminophen (Acetaminophen 650 Mg Supp) 650 mg NM Q6H PRN PRN Reason: fever Stop: 03/23/23 14:27 Acetaminophen (Acetaminophen 325 Mg Tab) 650 mg PO Q6H PRN PRN Reason: Pain or Fever Stop: 03/26/23 13:38 Dextrose (Dextrose 50% 50 Ml Syringe) 25 - 50 ml IV UD PRN; Protocol PRN Reason: Hypoglycemia Protocol Stop: 03/23/23 14:27 Last Admin: 02/23/23 06:24 Dose: 25 ml Glucagon (Glucagon For Inj 1 Mg Vial) 1 mg SQ UD PRN; Protocol PRN Reason: Hypoglycemia Protocol Stop: 03/23/23 14:27 Glucose (Glucose 10 Tab/Tube) 4 - 8 tab PO UD PRN; Protocol PRN Reason: Hypoglycemia Treatment Stop: 03/23/23 14:27 Glucose (Glucose 40% Gel 15 Gm Tube) 15 - 30 gm PO UD PRN; Protocol PRN Reason: Hypoglycemia Protocol Stop: 03/23/23 14:27 Heparin Sodium (Porcine) (Heparin Sod 5,000 Unit/0.5 Ml Vial) 7,500 units SQ Q12 [facility] Stop: 03/25/23 20:59 Last Admin: 02/24/23 08:37 Dose: 7,500 units Ceftriaxone Sodium 2,000 mg/ (Dextrose) 70 mls @ 100 mls/hr IV Q12H [facility]; Protocol Stop: 03/03/23 11:59 Last Infusion: 02/24/23 03:26 Dose: Infused Insulin Aspart (Insulin Aspart Per Unit Charge) 0 units SC ACHS [facility] Stop: 03/25/23 16:59 Last Admin: 02/24/23 12:26 Dose: Not Given Levetiracetam (Levetiracetam 500 Mg Tab) 1,000 mg PO QAM [facility] Stop: 03/27/23 08:59 Metoprolol Succinate (Metoprolol Succ 25mg Ext Rel Tab) 12.5 mg PO Q12H [facility] Stop: 03/26/23 09:44 Last Admin: 02/24/23 10:14 Dose: 12.5 mg Metoprolol Tartrate (Metoprolol Tartrate 1 Mg/Ml Vial) 2.5 mg IV Q6 PRN PRN Reason: Tachycardia Stop: 03/23/23 17:59 Miscellaneous (Carbohydrates For Hypoglycemia ) 15 - 30 gm PO UD PRN PRN Reason: Hypoglycemia Protocol Stop: 03/23/23 14:27 Miscellaneous Information (Pharmacy Glycemic Mgmt Consult) 1 each N/A UD PRN PRN Reason: Consult Stop: 03/23/23 14:27 Raspberry (Raspberry Syrup 5 Ml Udp) 5 ml PO DAILY [facility] Stop: 03/04/23 14:59 Last Admin: 02/24/23 08:49 Dose: 5 ml Vancomycin HCl (Vancomycin Hcl 125 Mg/2.5ml Soln) 125 mg PO DAILY [facility] Stop: 03/24/23 14:59 Last Admin: 02/24/23 08:48 Dose: 125 mg
--- NOTE | 2023-02-24 13:43 | Electrocardiogram Report ---
Test Reason : Blood Pressure : / mmHG Vent. Rate : 090 BPM Atrial Rate : 090 BPM P-R Int : 230 ms QRS Dur : 134 ms QT Int : 396 ms P-R-T Axes : 070 -74 025 degrees QTc Int : 484 ms Sinus rhythm with 1st degree A-V block with Premature atrial complexes Right bundle branch block Left anterior fascicular block Bifascicular block Abnormal ECG When compared with ECG of 23-FEB-2023 15:33, Sinus rhythm has replaced Atrial fibrillation Vent. rate has decreased BY 45 BPM Confirmed by Polo Caballero ([id number]) on 02/24/2023 1:43:22 PM Referred By: [facility] Confirmed By:Shahzad Caballero
[2023-02-24 15:37] LABS: Lyme DNA PCR CSF or Synovial Not Detected (Not Detected); Lyme DNA Source CSF
[2023-02-25] MEDS: cefTRIAXone SODIUM 2,000 MG in DEXTROSE 5% 50 ML IV SCH ×2 (02:51→15:53)
[2023-02-25] MEDS: INSULIN ASPART PER UNIT CHARGE SC SCH ×4 (07:33→20:07)
[2023-02-25] MEDS: levETIRAcetam 500 MG TAB PO SCH (08:17)
[2023-02-25] MEDS: HEPARIN SOD 5,000 UNIT/0.5 ML VIAL SQ SCH ×2 (08:17→20:08)
[2023-02-25] MEDS: METOPROLOL SUCC 25MG EXT REL TAB PO SCH ×2 (08:18→20:08)
[2023-02-25] MEDS: VANCOMYCIN HCL 125 MG/2.5ML SOLN PO SCH (08:18)
[2023-02-25] MEDS: RASPBERRY SYRUP 5 ML UDP PO SCH (08:18)
--- NOTE | 2023-02-25 12:45 | Hospitalist Progress Note ---
Date of Service February 25, 2023 Assessment & Plan (1) Asthma: (2) Sleep apnea: (3) On home oxygen therapy: (4) Chronic obstructive pulmonary disease: (5) Hyperlipidemia: (6) Dialysis patient: (7) Atrial fibrillation: (8) AV fistula: (9) Dislocated shoulder: (10) History of blood clots: (11) Pericardial effusion: (12) History of hypotension: (13) TIA (transient ischemic attack): (14) Diabetic neuropathy: (15) Diabetes mellitus, type 2: (16) History of arthroscopy: (17) History of carpal tunnel release: (18) History of lumbar surgery: (19) Seizure: Plan: -Admitted to ICU -Witnessed seizure at the rehab facility -Loaded with Keppra 2 g and 1 mg Ativan in the ER after 2 witnessed separate seizures early this morning after 5 AM -Neurology consulted -appreciate neurology input and recommendation to continue seizure medications for now -MRI of the brain seizure protocol -did not show any acute stroke but did show posterior reversible encephalopathy syndrome versus an infectious etiology -LP did not show any evidence of infection and the culture is pending. Protein was noted to be high and glucose minimally low -CT of the head was reviewed and showed left ICA high-grade stenosis but no other signs of hemorrhage -Lyme titer is negative and B12 level is normal -1 out of 2 blood culture is positive for gram-positive cocci in chain -Noted history of C. difficile currently, placed on contact precautions, has been getting preventive dose of vancomycin -Seizure precautions & Fall precautions -No more seizures since admission -Keppra has been changed to oral -Remains stable without any more episodes of seizures Gram-positive cocci bacteremia in chains -In 1 out of 2 bottles -Has been on intravenous ceftriaxone and vancomycin -Await ID recommendation for further antibiotics recommendation and duration -Remains afebrile and white count has been improving -Prescient ID input and recommendation -IV vancomycin has been discontinued we will continue with IV ceftriaxone for now -No signs and or symptoms of infection -We will discontinue intravenous ceftriaxone on discharge (20) End-stage renal disease on hemodialysis: Plan: -Nephrology consulted, discussed with Dr. Garces, will plan to do dialysis later this afternoon after patient is more stable -Give Keppra dosing postdialysis sessions as above -Left-sided AVF -Has been getting dialysis and appreciate nephrology input and recommendation -Ongoing dialysis (21) DM II (diabetes mellitus, type II), controlled: Plan: -ISS with Accu-Cheks ACHS -Checking an A1c -Lantus 12 U daily on hold for now with NPO status - can add later once status improves. (22) Paroxysmal A-fib: Plan: - Patient is not on formal anticoagulation - Strict n.p.o., may continue propafenone and metoprolol if able to take p.o. intake - Currently in NSR -Went into A-fib with RVR-she missed her dose of metoprolol during noon -Advised to resume metoprolol -She has not been on any anticoagulation likely due to risk of bleeding -Will not give full anticoagulation that was discussed with the patient -Remains tachycardic around 110s -Her home dose of beta-khushbu has been added -Rate remains controlled and back in sinus rhythm (23) Chronic respiratory failure with hypoxia: Plan: Remains stable (24) COPD (chronic obstructive pulmonary disease): Plan: Has been receiving IV hydrocortisone as a stress dose No acute exacerbation (25) Restrictive lung disease: Plan: -Place patient on BiPAP-noted in her heart that she wears CPAP, unknown settings at this time -ABG reviewed: pH 7.32, PCO2 54, PO2 76, HCO3 28 -Patient was reportedly vomiting per nursing, monitor for aspiration -Aspiration precautions -CXR reviewed showing cardiomegaly with pulmonary vascular congestion, interstitial coarsening suggestive of mild pulmonary edema, left hemidiaphragmatic elevation, probable small left pleural effusion with mild left lung base opacity -Breath sounds are worse on the right side at time of my exam - concern for aspiration -Pt as on doxycycline course to finish abx for treatment of LLL pneumonia s/p hospital stay at [facility] prior to her stay at [facility] (26) C. difficile diarrhea: Plan: -Unable to take p.o. vanc 125 mcg daily, started at the end of January,course to continue through 03/16 - Vanc retention enema daily in the meantime - Contact precaution -We will continue suppressive dose of vancomycin as before (27) Iron deficiency: Plan: - Chronic, stable, is on IV iron q7D as outpatient DVT ppx: - teds, scds, obtain LP today, then resume chemical ppx -Resumed heparin as preventive dose of anticoagulation CODE: Full Code Dispo: From home, likely to remain in the hospital x 1-2 days Get PT and OT evaluation Likely discharge on Sunday Admission and Anticipated Discharge Date Admission Date: February 21, 2023 Subjective 02/22/2023 The patient was seen and examined in ICU She was admitted with witnessed seizure from [facility] Now noted to have 1 out of 2 bottles of gram-positive bacteremia in chains Clinically better and has been communicating without any acute distress at rest No more seizures since admission 02/23/2023 The patient was seen and examined in ICU She is status post dialysis and has been feeling a lot better Remains pleasantly confused but does not have any acute distress Noted to have A-fib with RVR without any symptom 02/24/2023 The patient was seen and examined in ICU She has been much better today and the confusion is going away No more seizures since admission No distress at rest 02/25/2023 The patient was seen and examined in telemetry unit She has been feeling much better and conversing normally No more confusion and denies any significant symptoms Review of Systems Review of Systems: All systems reviewed and are unremarkable except as noted below Physical Exam Physical Exam: Lying in bed comfortably Constitutional: well developed, well nourished, + ill appearing, + morbidly obese and + obese Eyes: PERRL, conjunctivae normal, anicteric sclerae ENMT: external ear and nose normal, oropharynx normal Neck: trachea midline, no thyromegaly Respiratory: no respiratory distress Auscultation: + diminished lung sounds and + crackles (Minimal crackles at the bases) Cardiovascular: Rate/Rhythm: regular rate, regular rhythm and + tachycardic Heart Sounds: normal S1 and normal S2; no murmur Extremities: + edema (Trace edema bilaterally) Gastrointestinal (Abdomen): Inspection/Auscultation: normal bowel sounds; abdomen not distended Percussion/Palpation: abdomen soft; abdomen nontender Neurologic: normal touch/pain/proprioception, moves all extremities and + conf used (Pleasantly confused); no focal motor deficits Lymphatic: no cervical or axillary lymphadenopathy Results & Data Results & Data Vital Signs (Past 12 Hours) Vital Signs Temp Pulse Pulse Resp BP Pulse Ox O2 Del Method 02/25/23 11:48 36.6 C 83 147/69 H 99 Room Air 02/25/23 08:00 Nasal Cannula 02/25/23 08:00 85 02/25/23 07:52 36.6 C 90 18 153/70 H 98 Room Air 02/25/23 03:48 36.9 C 80 20 161/99 H 100 Room Air O2 Flow Rate 02/25/23 11:48 02/25/23 08:00 2 02/25/23 08:00 02/25/23 07:52 02/25/23 03:48 Medications Administered Current Inpatient Medications Acetaminophen (Acetaminophen 650 Mg Supp) 650 mg ID Q6H PRN PRN Reason: fever Stop: 03/23/23 14:27 Acetaminophen (Acetaminophen 325 Mg Tab) 650 mg PO Q6H PRN PRN Reason: Pain or Fever Stop: 03/26/23 13:38 Last Admin: 02/24/23 14:33 Dose: 650 mg Dextrose (Dextrose 50% 50 Ml Syringe) 25 - 50 ml IV UD PRN; Protocol PRN Reason: Hypoglycemia Protocol Stop: 03/23/23 14:27 Last Admin: 02/23/23 06:24 Dose: 25 ml Glucagon (Glucagon For Inj 1 Mg Vial) 1 mg SQ UD PRN; Protocol PRN Reason: Hypoglycemia Protocol Stop: 03/23/23 14:27 Glucose (Glucose 10 Tab/Tube) 4 - 8 tab PO UD PRN; Protocol PRN Reason: Hypoglycemia Treatment Stop: 03/23/23 14:27 Glucose (Glucose 40% Gel 15 Gm Tube) 15 - 30 gm PO UD PRN; Protocol PRN Reason: Hypoglycemia Protocol Stop: 03/23/23 14:27 Heparin Sodium (Porcine) (Heparin Sod 5,000 Unit/0.5 Ml Vial) 7,500 units SQ Q12 [facility] Stop: 03/25/23 20:59 Last Admin: 02/25/23 08:17 Dose: 7,500 units Ceftriaxone Sodium 2,000 mg/ (Dextrose) 70 mls @ 100 mls/hr IV Q12H [facility]; Protocol Stop: 03/03/23 11:59 Last Infusion: 02/25/23 03:35 Dose: Infused Insulin Aspart (Insulin Aspart Per Unit Charge) 0 units SC ACHS [facility] Stop: 03/25/23 16:59 Last Admin: 02/25/23 11:48 Dose: Not Given Levetiracetam (Levetiracetam 500 Mg Tab) 1,000 mg PO QAM [facility] Stop: 03/27/23 08:59 Last Admin: 02/25/23 08:17 Dose: 1,000 mg Metoprolol Succinate (Metoprolol Succ 25mg Ext Rel Tab) 12.5 mg PO Q12H [facility] Stop: 03/26/23 09:44 Last Admin: 02/25/23 08:18 Dose: 12.5 mg Metoprolol Tartrate (Metoprolol Tartrate 1 Mg/Ml Vial) 2.5 mg IV Q6 PRN PRN Reason: Tachycardia Stop: 03/23/23 17:59 Miscellaneous (Carbohydrates For Hypoglycemia ) 15 - 30 gm PO UD PRN PRN Reason: Hypoglycemia Protocol Stop: 03/23/23 14:27 Miscellaneous Information (Pharmacy Glycemic Mgmt Consult) 1 each N/A UD PRN PRN Reason: Consult Stop: 03/23/23 14:27 Raspberry (Raspberry Syrup 5 Ml Udp) 5 ml PO DAILY [facility] Stop: 03/04/23 14:59 Last Admin: 02/25/23 08:18 Dose: 5 ml Vancomycin HCl (Vancomycin Hcl 125 Mg/2.5ml Soln) 125 mg PO DAILY [facility] Stop: 03/24/23 14:59 Last Admin: 02/25/23 08:18 Dose: 125 mg
--- NOTE | 2023-02-25 15:01 | Nephrology Progress Note ---
Date of Service February 25, 2023 Assessment & Plan (1) Seizure: Plan: She is on Keppra per neurology. No further seizures. (2) End-stage renal disease on hemodialysis: Plan: Patient is on dialysis Sunday while in-house. She is normally home hemodialysis. Last dialysis was on Sunday. Electrolytes are stable. Patient for dialysis on Sunday for 3-1/2 hours Target UF 2.5 L. Admission and Anticipated Discharge Date Admission Date: February 21, 2023 Subjective Seen for ESRD. No shortness of breath. Main complaint is weakness. She is eating better now. at the bedside. Review of Systems Review of Systems: All other systems were reviewed and negative except as noted in HPI Physical Exam Physical Exam: General exam: Appears comfortable, no acute distress HEENT: Pupils are equal and reactive to light Neck: No JVD, neck is supple trachea is midline Respiratory system: Clear breath sounds bilaterally. Gastrointestinal: Abdomen is soft, non distended, non tender, bowel sounds are present CVS: Regular rate and rhythm. No murmurs, rubs or gallops Musculoskeletal: No joint or muscle tenderness Extremities: Non tender, no edema, peripheral pulses are present Neuro: Oriented, no tremors, no focal neurological deficits Skin: No rashes Results & Data Vital Signs (Past 12 Hours) Vital Signs Temp Pulse Pulse Resp BP Pulse Ox O2 Del Method 02/25/23 14:45 36.4 C L 84 18 147/75 H 100 Room Air 02/25/23 11:48 36.6 C 83 147/69 H 99 Room Air 02/25/23 08:00 Nasal Cannula 02/25/23 08:00 85 02/25/23 07:52 36.6 C 90 18 153/70 H 98 Room Air 02/25/23 03:48 36.9 C 80 20 161/99 H 100 Room Air O2 Flow Rate 02/25/23 14:45 02/25/23 11:48 02/25/23 08:00 2 02/25/23 08:00 02/25/23 07:52 02/25/23 03:48 Laboratory Results 02/24/23 04:20
[2023-02-26] MEDS: cefTRIAXone SODIUM 2,000 MG in DEXTROSE 5% 50 ML IV SCH ×2 (03:16→14:44)
[2023-02-26] MEDS ORDERED: HEPARIN SOD (PORCINE) 1000 UNIT/ML IV SCH (07:00)
[2023-02-26] MEDS ORDERED: SODIUM CHLORIDE 0.9% 1,000 ML IV PRN (07:00)
[2023-02-26 07:52] LABS: Basophils # (auto) 0.03 K/uL (0-0.2); Basophils % (auto) 0.3 %; Eosinophils # (auto) 0.36 K/uL (0-0.50); Eosinophils % (auto) 3.8 %; Hematocrit (blood only) 35.2 % (37.0-47.0); Hemoglobin 11.3 g/dl (12.0-16.0); Immature Granulocytes # (auto) 0.06 K/uL (0.01-0.20); Immature Granulocytes % (auto) 0.6 %; Lymphocytes # (auto) 2.85 K/uL (1.2-3.4); Lymphocytes % (auto) 30.4 %; Mean Corpuscular Hemoglobin 29.4 pg (25.0-34.0); Mean Corpuscular Hgb Conc 32.1 g/dL (32.0-36.0); Mean Corpuscular Volume 91.4 fL (80.0-100.0); Mean Platelet Volume 12.7 fL (9.4-12.4); Monocytes # (auto) 0.78 K/uL (0.11-0.59); Monocytes % (auto) 8.3 %; Neutrophils # (auto) 5.31 K/uL (1.40-6.50); Neutrophils % (auto) 56.6 %; Platelet Count 136 K/uL (130-400); RDW Standard Deviation 66.2 fL (36.4-46.3); Red Blood Count 3.85 M/uL (4.20-5.40); White Blood Count 9.39 K/ul (4.8-10.8)
[2023-02-26 08:18] LABS: BUN Creatinine Ratio 4.2 (10-20); Calcium 9.3 mg/dl (8.6-10.3); Creatinine Clr Calc Pharmacy 9.3 ml/min; Est GFR (African American) 9.6 ml/min; Est GFR (Non-African American) 8.3 ml/min; Magnesium 1.7 mg/dl (1.7-2.4); Potassium 3.9 mmol/L (3.5-5.1)
[2023-02-26] MEDS: RASPBERRY SYRUP 5 ML UDP PO SCH (08:46)
[2023-02-26] MEDS: levETIRAcetam 500 MG TAB PO SCH (08:46)
[2023-02-26] MEDS: HEPARIN SOD 5,000 UNIT/0.5 ML VIAL SQ SCH (08:47)
[2023-02-26] MEDS: VANCOMYCIN HCL 125 MG/2.5ML SOLN PO SCH (08:47)
[2023-02-26] MEDS: INSULIN ASPART PER UNIT CHARGE SC SCH ×2 (08:47→14:00)
[2023-02-26] MEDS: METOPROLOL SUCC 25MG EXT REL TAB PO SCH (08:48)
--- NOTE | 2023-02-26 10:12 | Pharmacy Report ---
Pharmacy Glycemic Sign Off Nt - Date of Service February 26, 2023 - Assessment & Plan ASSESSMENT: * Pharmacy was consulted by Emilia Montoya on 02/21 for glycemic control and to write orders per [facility] inpatient glycemic control protocol. * Major changes made by pharmacy to antidiabetic regimen include: * added novolog scale * Patient has not received any insulin over the last 4 days * BSGs ranging 73-174 mg/dl * Please see recommendations for outpatient antidiabetic regimen below. PLAN FOR INPATIENT GLYCEMIC CONTROL: No changes needed to current regimen. * Basal insulin - not currently warranted * Continue NovoLog per scale ACHS/Q6hrs while NPO * Goal range = 120-160 mg/dl * CF = 35 mg/dl/unit * CR = 1 unit for ever -- g CHO consumed * Pharmacy is signing off of glycemic consult and will no longer be making adjustments to inpatient regimen. Please feel free to re-consult if needed. Thank you.
--- NOTE | 2023-02-26 10:49 | Dialysis Progress Note ---
Date of Service February 26, 2023 Assessment & Plan Admission and Anticipated Discharge Date Admission Date: February 21, 2023 Subjective Assessment & Plan (1) End-stage renal disease on hemodialysis: Dialysis today 3.5 hr and take 2.5 kilo off. 2k. has some edema and BP normal. Will advance the UG goal slowly. . (2) Seizure: reviewed Neurology note as well as diagnostic workups done so far. She has been suggested to have Keppra which does need to be adjusted for her dialysis status.getting 1 gm daily and level being checked S---Seen during dialysis. AVF fine and BP is fine. back to normal mental status now. Physical Exam Physical Exam: patient barely open eyes. She did not answer any question not followed any command. Constitutional: appears quite sick Neck: supple no JVD Respiratory: bilateral decreased breath sound but poor quality exam Cardiovascular: regular rate and rhythm so systolic murmur heard edema 1+ Gastrointestinal (Abdomen): soft nontender Skin: No rash Results & Data Vital Signs (Past 12 Hours) Vital Signs Temp Pulse Pulse Pulse Resp BP Pulse Ox 02/26/23 08:00 02/26/23 08:00 73 02/26/23 08:00 37.0 C 77 18 149/88 H 97 02/26/23 03:00 20 98 02/26/23 03:17 36.6 C 77 18 159/68 H 94 02/25/23 23:37 37.0 C 85 18 137/71 99 02/25/23 23:23 22 97 02/25/23 22:49 78 O2 Del Method O2 Flow Rate 02/26/23 08:00 Nasal Cannula 2 02/26/23 08:00 02/26/23 08:00 Room Air 02/26/23 03:00 2 02/26/23 03:17 Room Air, CPAP 02/25/23 23:37 CPAP 02/25/23 23:23 2 02/25/23 22:49
--- NOTE | 2023-02-26 10:59 | Hospitalist Progress Note ---
Date of Service February 26, 2023 Assessment & Plan (1) Asthma: (2) Sleep apnea: (3) On home oxygen therapy: (4) Chronic obstructive pulmonary disease: (5) Hyperlipidemia: (6) Dialysis patient: (7) Atrial fibrillation: (8) AV fistula: (9) Dislocated shoulder: (10) History of blood clots: (11) Pericardial effusion: (12) History of hypotension: (13) TIA (transient ischemic attack): (14) Diabetic neuropathy: (15) Diabetes mellitus, type 2: (16) History of arthroscopy: (17) History of carpal tunnel release: (18) History of lumbar surgery: (19) Seizure: Plan: -Admitted to ICU -Witnessed seizure at the rehab facility -Loaded with Keppra 2 g and 1 mg Ativan in the ER after 2 witnessed separate seizures early this morning after 5 AM -Neurology consulted -appreciate neurology input and recommendation to continue seizure medications for now -MRI of the brain seizure protocol -did not show any acute stroke but did show posterior reversible encephalopathy syndrome versus an infectious etiology -LP did not show any evidence of infection and the culture is pending. Protein was noted to be high and glucose minimally low -CT of the head was reviewed and showed left ICA high-grade stenosis but no other signs of hemorrhage -Lyme titer is negative and B12 level is normal -1 out of 2 blood culture is positive for gram-positive cocci in chain -Noted history of C. difficile currently, placed on contact precautions, has been getting preventive dose of vancomycin -Seizure precautions & Fall precautions -No more seizures since admission -Keppra has been changed to oral -Remains stable without any more episodes of seizures -We will continue current medications for seizure Gram-positive cocci bacteremia in chains -In 1 out of 2 bottles -Has been on intravenous ceftriaxone and vancomycin -Await ID recommendation for further antibiotics recommendation and duration -Remains afebrile and white count has been improving -Prescient ID input and recommendation -IV vancomycin has been discontinued we will continue with IV ceftriaxone for now -No signs and or symptoms of infection -We will discontinue intravenous ceftriaxone on discharge -The course of antibiotic is done for a total of 5 days as per recommendation from the ID (20) End-stage renal disease on hemodialysis: Plan: -Nephrology consulted, discussed with Dr. Graces, will plan to do dialysis later this afternoon after patient is more stable -Give Keppra dosing postdialysis sessions as above -Left-sided AVF -Has been getting dialysis and appreciate nephrology input and recommendation -Ongoing dialysis -Continue hemodialysis as an outpatient (21) DM II (diabetes mellitus, type II), controlled: Plan: -ISS with Accu-Cheks ACHS -Checking an A1c -Lantus 12 U daily on hold for now with NPO status - can add later once status improves. (22) Paroxysmal A-fib: Plan: - Patient is not on formal anticoagulation - Strict n.p.o., may continue propafenone and metoprolol if able to take p.o. intake - Currently in NSR -Went into A-fib with RVR-she missed her dose of metoprolol during noon -Advised to resume metoprolol -She has not been on any anticoagulation likely due to risk of bleeding -Will not give full anticoagulation that was discussed with the patient -Remains tachycardic around 110s -Her home dose of beta-khushbu has been added -Rate remains controlled and back in sinus rhythm -Rate is controlled below 100 (23) Chronic respiratory failure with hypoxia: Plan: Remains stable (24) COPD (chronic obstructive pulmonary disease): Plan: Has been receiving IV hydrocortisone as a stress dose No acute exacerbation (25) Restrictive lung disease: Plan: -Place patient on BiPAP-noted in her heart that she wears CPAP, unknown settings at this time -ABG reviewed: pH 7.32, PCO2 54, PO2 76, HCO3 28 -Patient was reportedly vomiting per nursing, monitor for aspiration -Aspiration precautions -CXR reviewed showing cardiomegaly with pulmonary vascular congestion, interstitial coarsening suggestive of mild pulmonary edema, left hemidiaphragmatic elevation, probable small left pleural effusion with mild left lung base opacity -Breath sounds are worse on the right side at time of my exam - concern for aspiration -Pt as on doxycycline course to finish abx for treatment of LLL pneumonia s/p hospital stay at [facility] prior to her stay at [facility] (26) C. difficile diarrhea: Plan: -Unable to take p.o. vanc 125 mcg daily, started at the end of January,course to continue through 03/16 - Vanc retention enema daily in the meantime - Contact precaution -We will continue suppressive dose of vancomycin as before (27) Iron deficiency: Plan: - Chronic, stable, is on IV iron q7D as outpatient DVT ppx: - teds, scds, obtain LP today, then resume chemical ppx -Resumed heparin as preventive dose of anticoagulation CODE: Full Code Dispo: From home, likely to remain in the hospital x 1-2 days Get PT and OT evaluation Likely discharge to [facility] this afternoon Plan -Admitted to ICU -Witnessed seizure at the rehab facility -Loaded with Keppra 2 g and 1 mg Ativan in the ER after 2 witnessed separate seizures early this morning after 5 AM -Neurology consulted -appreciate neurology input and recommendation to continue seizure medications for now -MRI of the brain seizure protocol -did not show any acute stroke but did show posterior reversible encephalopathy syndrome versus an infectious etiology -LP did not show any evidence of infection and the culture is pending. Protein was noted to be high and glucose minimally low -CT of the head was reviewed and showed left ICA high-grade stenosis but no other signs of hemorrhage -Lyme titer is negative and B12 level is normal -1 out of 2 blood culture is positive for gram-positive cocci in chain -Noted history of C. difficile currently, placed on contact precautions, has been getting preventive dose of vancomycin -Seizure precautions & Fall precautions -No more seizures since admission -Keppra has been changed to oral -Remains stable without any more episodes of seizures -Continue current dose of seizure medication Gram-positive cocci bacteremia in chains -In 1 out of 2 bottles -Has been on intravenous ceftriaxone and vancomycin -Await ID recommendation for further antibiotics recommendation and duration -Remains afebrile and white count has been improving -Prescient ID input and recommendation -IV vancomycin has been discontinued we will continue with IV ceftriaxone for now -No signs and or symptoms of infection -We will discontinue intravenous ceftriaxone on discharge -Going back to [facility] (20) End-stage renal disease on hemodialysis: Plan: -Nephrology consulted, discussed with Dr. Garces, will plan to do dialysis later this afternoon after patient is more stable -Give Keppra dosing postdialysis sessions as above -Left-sided AVF -Has been getting dialysis and appreciate nephrology input and recommendation -Ongoing dialysis-has had dialysis on 02/26/2023 (21) DM II (diabetes mellitus, type II), controlled: Plan: -ISS with Accu-Cheks ACHS -Checking an A1c -Lantus 12 U daily on hold for now with NPO status - can add later once status improves. (22) Paroxysmal A-fib: Plan: - Patient is not on formal anticoagulation - Strict n.p.o., may continue propafenone and metoprolol if able to take p.o. intake - Currently in NSR -Went into A-fib with RVR-she missed her dose of metoprolol during noon -Advised to resume metoprolol -She has not been on any anticoagulation likely due to risk of bleeding -Will not give full anticoagulation that was discussed with the patient -Remains tachycardic around 110s -Her home dose of beta-khushbu has been added -Rate remains controlled and back in sinus rhythm (23) Chronic respiratory failure with hypoxia: Plan: Remains stable (24) COPD (chronic obstructive pulmonary disease): Plan: Has been receiving IV hydrocortisone as a stress dose No acute exacerbation (25) Restrictive lung disease: Plan: -Place patient on BiPAP-noted in her heart that she wears CPAP, unknown settings at this time -ABG reviewed: pH 7.32, PCO2 54, PO2 76, HCO3 28 -Patient was reportedly vomiting per nursing, monitor for aspiration -Aspiration precautions -CXR reviewed showing cardiomegaly with pulmonary vascular congestion, interstitial coarsening suggestive of mild pulmonary edema, left hemidiaphragmatic elevation, probable small left pleural effusion with mild left lung base opacity -Breath sounds are worse on the right side at time of my exam - concern for aspiration -Pt as on doxycycline course to finish abx for treatment of LLL pneumonia s/p hospital stay at [facility] prior to her stay at [facility] (26) C. difficile diarrhea: Plan: -Unable to take p.o. vanc 125 mcg daily, started at the end of January,course to continue through 03/16 - Vanc retention enema daily in the meantime - Contact precaution -We will continue suppressive dose of vancomycin as before (27) Iron deficiency: Plan: - Chronic, stable, is on IV iron q7D as outpatient DVT ppx: - teds, scds, obtain LP today, then resume chemical ppx -Resumed heparin as preventive dose of anticoagulation CODE: Full Code Dispo: From home, likely to remain in the hospital x 1-2 days Get PT and OT evaluation Will be discharged to [facility] this afternoon Admission and Anticipated Discharge Date Admission Date: February 21, 2023 Admission and Anticipated Discharge Date Admission Date: February 21, 2023 Subjective 02/22/2023 The patient was seen and examined in ICU She was admitted with witnessed seizure from [facility] Now noted to have 1 out of 2 bottles of gram-positive bacteremia in chains Clinically better and has been communicating without any acute distress at rest No more seizures since admission 02/23/2023 The patient was seen and examined in ICU She is status post dialysis and has been feeling a lot better Remains pleasantly confused but does not have any acute distress Noted to have A-fib with RVR without any symptom 02/24/2023 The patient was seen and examined in ICU She has been much better today and the confusion is going away No more seizures since admission No distress at rest 02/25/2023 The patient was seen and examined in telemetry unit She has been feeling much better and conversing normally No more confusion and denies any significant symptoms 02/26/2023 The patient was seen and examined in telemetry unit She has been feeling much better today Has been tolerating regular diet and did not have any other significant symptoms She will be discharged back to [facility] this afternoon Review of Systems Review of Systems: All systems reviewed and are unremarkable except as noted below Physical Exam Physical Exam: Lying in bed comfortably Constitutional: well developed, well nourished, + morbidly obese and + obese; not ill appearing Eyes: PERRL, conjunctivae normal, anicteric sclerae ENMT: external ear and nose normal, oropharynx normal Neck: trachea midline, no thyromegaly Respiratory: no respiratory distress Auscultation: + diminished lung sounds and + crackles (Minimal crackles at the bases) Cardiovascular: Rate/Rhythm: regular rate, regular rhythm and + tachycardic Heart Sounds: normal S1 and normal S2; no murmur Extremities: + edema (Trace edema bilaterally) Gastrointestinal (Abdomen): Inspection/Auscultation: normal bowel sounds; abdomen not distended Percussion/Palpation: abdomen soft; abdomen nontender Musculoskeletal: No acute arthritis involving any of the joint Skin: Does have generalized bruising Neurologic: normal touch/pain/proprioception, moves all extremities and + confused (Pleasantly confused); no focal motor deficits Lymphatic: no cervical or axillary lymphadenopathy Results & Data Results & Data Vital Signs (Past 12 Hours) Vital Signs Temp Pulse Pulse Pulse Resp BP Pulse Ox 02/26/23 08:00 02/26/23 08:00 73 08/07/23 08:00 37.0 C 77 18 149/88 H 97 02/26/23 03:00 20 98 02/26/23 03:17 36.6 C 77 18 159/68 H 94 02/25/23 23:37 37.0 C 85 18 137/71 99 02/25/23 23:23 22 97 O2 Del Method O2 Flow Rate 02/26/23 08:00 Nasal Cannula 2 02/26/23 08:00 02/26/23 08:00 Room Air 02/26/23 03:00 2 02/26/23 03:17 Room Air, CPAP 02/25/23 23:37 CPAP 02/25/23 23:23 2 Laboratory Results Short CBC 02/26/23 Range/Units 07:15 WBC 9.39 (4.8-10.8) K/ul Hgb 11.3 L (12.0-16.0) g/dl Hct 35.2 L (37.0-47.0) % Plt Count 136 (130-400) K/uL BMP 02/26/23 07:15 Sodium 142 Potassium 3.9 Chloride 104 Carbon Dioxide 26 BUN 21 Creatinine 4.98 H* Glucose 85 Calcium 9.3 Medications Administered Current Inpatient Medications Acetaminophen (Acetaminophen 650 Mg Supp) 650 mg KS Q6H PRN PRN Reason: fever Stop: 03/23/23 14:27 Acetaminophen (Acetaminophen 325 Mg Tab) 650 mg PO Q6H PRN PRN Reason: Pain or Fever Stop: 03/26/23 13:38 Last Admin: 02/24/23 14:33 Dose: 650 mg Dextrose (Dextrose 50% 50 Ml Syringe) 25 - 50 ml IV UD PRN; Protocol PRN Reason: Hypoglycemia Protocol Stop: 03/23/23 14:27 Last Admin: 02/23/23 06:24 Dose: 25 ml Glucagon (Glucagon For Inj 1 Mg Vial) 1 mg SQ UD PRN; Protocol PRN Reason: Hypoglycemia Protocol Stop: 03/23/23 14:27 Glucose (Glucose 10 Tab/Tube) 4 - 8 tab PO UD PRN; Protocol PRN Reason: Hypoglycemia Treatment Stop: 03/23/23 14:27 Glucose (Glucose 40% Gel 15 Gm Tube) 15 - 30 gm PO UD PRN; Protocol PRN Reason: Hypoglycemia Protocol Stop: 03/23/23 14:27 Heparin Sodium (Porcine) (Heparin Sod 5,000 Unit/0.5 Ml Vial) 7,500 units SQ Q12 [facility] Stop: 03/25/23 20:59 Last Admin: 02/26/23 08:47 Dose: 7,500 units Heparin Sodium (Porcine) (Heparin Sod (Porcine) 1000 Unit/Ml) 2,000 units IV TODAY@0700 [facility] Stop: 02/26/23 14:00 Last Admin: 02/26/23 10:54 Dose: Not Given Ceftriaxone Sodium 2,000 mg/ (Dextrose) 70 mls @ 100 mls/hr IV Q12H [facility]; Protocol Stop: 03/03/23 11:59 Last Infusion: 02/26/23 04:34 Dose: Infused Sodium Chloride (Nss 1000ml) 1,000 mls @ 0 mls/hr IV .Q0M PRN PRN Reason: For Hemodialysis Use ONLY Stop: 02/26/23 12:59 Insulin Aspart (Insulin Aspart Per Unit Charge) 0 units SC ACHS [facility] Stop: 03/25/23 16:59 Last Admin: 02/26/23 08:47 Dose: Not Given Levetiracetam (Levetiracetam 500 Mg Tab) 1,000 mg PO QAM [facility] Stop: 03/27/23 08:59 Last Admin: 02/26/23 08:46 Dose: 1,000 mg Metoprolol Succinate (Metoprolol Succ 25mg Ext Rel Tab) 12.5 mg PO Q12H [facility] Stop: 03/26/23 09:44 Last Admin: 02/26/23 08:48 Dose: Not Given Metoprolol Tartrate (Metoprolol Tartrate 1 Mg/Ml Vial) 2.5 mg IV Q6 PRN PRN Reason: Tachycardia Stop: 03/23/23 17:59 Miscellaneous (Carbohydrates For Hypoglycemia ) 15 - 30 gm PO UD PRN PRN Reason: Hypoglycemia Protocol Stop: 03/23/23 14:27 Raspberry (Raspberry Syrup 5 Ml Udp) 5 ml PO DAILY [facility] Stop: 03/04/23 14:59 Last Admin: 02/26/23 08:46 Dose: 5 ml Vancomycin HCl (Vancomycin Hcl 125 Mg/2.5ml Soln) 125 mg PO DAILY [facility] Stop: 03/24/23 14:59 Last Admin: 02/26/23 08:47 Dose: 125 mg
--- NOTE | 2023-02-27 17:16 | Discharge Summary ---
Date of Service February 26, 2023 Admission HPI Per Admitting Provider This is a 67-year-old female with past medical history of ESRD on HD with left AVF status post revision, DM type II, chronic respiratory failure with hypoxia, history of diabetic retinopathy, HLD, polyneuropathy, obesity hypoventilation syndrome, COPD, JULIETH, restrictive lung disease, paroxysmal A-fib not on anticoagulation, peripheral circular disease, GERD, C. difficile diarrhea currently on p.o. bank, osteopenia, anemia of chronic disease, iron deficiency. Most recently patient was admitted to [facility] on 02/08 with fatigue low-grade fever poor appetite, cough and lethargy. Patient was septic secondary to pneumonia and was treated with IV Zosyn, fluids and initially was hypotensive and required being in the ICU for 2 days due to septic shock. Her blood cultures were positive for Clostridium perfringens. She had a CT of the head and of her left lower extremity which ruled out osteomyelitis. Repeat blood cultures documented clearance. She was referred to follow-up with pulmonology for repeat CT of the chest to document clearance in a few weeks. She was transitioned to doxycycline to complete course of treatment for left upper lobe pneumonia and lower extremity cellulitis. She was found to have C. difficile and was being treated with p.o. vancomycin as she was not a fecal transplant candidate. She was treated for left lower lobe pneumonia, respiratory failure and was discharged to inpatient rehab at [facility] on 02/13/23. History is obtained via the chart and ER physician who spoke with staff from [facility]. Patient was seen while last known at 5am. At that point the patient began to be, more confused, was dysarthric, with worsening weakness, and at baseline requires a 4 person assist. At [facility] a seizure was witnessed, patient was transferred to the ER and while here had a second seizure where she was loaded with 2 g IV Keppra and given [address] of the head was completed and showed left ICA high-grade stenosis but no acute bleed. The patient is not on any blood thinners, or antiplatelet medication although she does have a history of paroxysmal A-fib. Unknown why she is not on systemic anticoagulation at this time. At the time of my exam patient is difficult to awaken, only awakens to blood draw and light being shined into her eyes with pupillary check ( which are very sluggish) groans slightly but otherwise is noncommunicative. She does not follow commands, and breathing is very coarse sounding on 2L via NC. Hx of smoking x 47 years, no alcohol use or illicit drug use. Admission Exam Per Admitting Provider Physical Exam: General: asleep, difficult to awaken unless painful stimuli with blood draw, morbidly obese Head: Normocephalic, atraumatic ENT: PER, minimally reactive to light bilaterally, EOM cannot be assessed, no pharyngeal exudate, mucous membranes moist Chest: Coarse breath sounds throughout in the right side, on 2 L via NC, rales and wheezes Cardiac: Regular rate and rhythm, no murmur, no JVD, normal peripheral pulses, good capillary refill Abdominal: NABS x 4 quadrants, soft, nondistended, nontender to palpation, no rebound or guarding Extremities: Left AVf wrapped in kerlix, multiple areas of ecchymosis over arms and legs, 2+ pitting peripheral edema, no erythema, calfs nontender to palpation Psych: Normal mood and affect Neuro:obtunded, strength cannot be assessed, speech no assessed as she does not talk with me, pupils are minimally reactive bilaterally and dilated Principal Diagnosis Seizures, end-stage renal disease on hemodialysis, 1 out of 2 bottles of gram- positive cocci bacteremia, type 2 diabetes, COPD, paroxysmal atrial fibrillation not on any anticoagulation Discharge Exam Lying in bed comfortably Constitutional well developed, well nourished, + morbidly obese and + obese; not ill appearing Eyes PERRL, conjunctivae normal, anicteric sclerae ENMT external ear and nose normal, oropharynx normal Neck trachea midline, no thyromegaly Respiratory no respiratory distress Auscultation: + diminished lung sounds and + crackles (Minimal crackles at the bases) Cardiovascular Rate/Rhythm: regular rate, regular rhythm and + tachycardic Heart Sounds: normal S1 and normal S2; no murmur Extremities: + edema (Trace edema bilaterally) Gastrointestinal (Abdomen) Inspection/Auscultation: normal bowel sounds; abdomen not distended Percussion/Palpation: abdomen soft; abdomen nontender Neurologic normal touch/pain/proprioception, moves all extremities and + confused (Pleasantly confused); no focal motor deficits Lymphatic no cervical or axillary lymphadenopathy Discharge Data Allergies Allergy/AdvReac Type Severity Reaction Status Date / Time moxifloxacin [From Avelox] Allergy Severe Shakiness Verified 02/21/23 15:40 lisinopril Allergy Intermediate facial Verified 02/21/23 15:40 swelling metformin [From Glucophage] Allergy Intermediate Rash Verified 02/21/23 15:40 avelox Allergy Unknown Uncoded 02/21/23 15:40 glucophage Allergy Unknown Uncoded 02/21/23 15:40 lisinopril Allergy Unknown Uncoded 02/21/23 15:40 Consultations 02/21/23 09:38 ED Decision to Admit Stat 02/21/23 10:07 Consult Nephrology Routine 02/21/23 10:37 Consult Neurology Routine 02/21/23 11:50 Consult Infectious Diseases Routine Ordered Studies 02/21/23 07:55 CT angio head w con Stat CT angio neck with con Stat CT head/brain wo con Stat 02/21/23 10:07 MR brain seizure wo con Stat 02/21/23 14:40 IR lumbar puncture diagnostic Urgent Hospital Course (1) Asthma: (2) Sleep apnea: (3) On home oxygen therapy: (4) Chronic obstructive pulmonary disease: (5) Hyperlipidemia: (6) Dialysis patient: (7) Atrial fibrillation: (8) AV fistula: (9) Dislocated shoulder: (10) History of blood clots: (11) Pericardial effusion: (12) History of hypotension: (13) TIA (transient ischemic attack): (14) Diabetic neuropathy: (15) Diabetes mellitus, type 2: (16) History of arthroscopy: (17) History of carpal tunnel release: (18) History of lumbar surgery: Plan -Admitted to ICU -Witnessed seizure at the rehab facility -Loaded with Keppra 2 g and 1 mg Ativan in the ER after 2 witnessed separate se izures early this morning after 5 AM -Neurology consulted -appreciate neurology input and recommendation to continue seizure medications for now -MRI of the brain seizure protocol -did not show any acute stroke but did show posterior reversible encephalopathy syndrome versus an infectious etiology -LP did not show any evidence of infection and the culture is pending. Protein was noted to be high and glucose minimally low -CT of the head was reviewed and showed left ICA high-grade stenosis but no other signs of hemorrhage -Lyme titer is negative and B12 level is normal -1 out of 2 blood culture is positive for gram-positive cocci in chain -Noted history of C. difficile currently, placed on contact precautions, has been getting preventive dose of vancomycin -Seizure precautions & Fall precautions -No more seizures since admission -Keppra has been changed to oral -Remains stable without any more episodes of seizures -Continue current dose of seizure medication Gram-positive cocci bacteremia in chains -In 1 out of 2 bottles -Has been on intravenous ceftriaxone and vancomycin -Await ID recommendation for further antibiotics recommendation and duration -Remains afebrile and white count has been improving -Prescient ID input and recommendation -IV vancomycin has been discontinued we will continue with IV ceftriaxone for now -No signs and or symptoms of infection -We will discontinue intravenous ceftriaxone on discharge -Going back to [facility] (20) End-stage renal disease on hemodialysis: Plan: -Nephrology consulted, discussed with Dr. Garces, will plan to do dialysis later this afternoon after patient is more stable -Give Keppra dosing postdialysis sessions as above -Left-sided AVF -Has been getting dialysis and appreciate nephrology input and recommendation -Ongoing dialysis-has had dialysis on 02/26/2023 (21) DM II (diabetes mellitus, type II), controlled: Plan: -ISS with Accu-Cheks ACHS -Checking an A1c -Lantus 12 U daily on hold for now with NPO status - can add later once status improves. (22) Paroxysmal A-fib: Plan: - Patient is not on formal anticoagulation - Strict n.p.o., may continue propafenone and metoprolol if able to take p.o. intake - Currently in NSR -Went into A-fib with RVR-she missed her dose of metoprolol during noon -Advised to resume metoprolol -She has not been on any anticoagulation likely due to risk of bleeding -Will not give full anticoagulation that was discussed with the patient -Remains tachycardic around 110s -Her home dose of beta-khushbu has been added -Rate remains controlled and back in sinus rhythm (23) Chronic respiratory failure with hypoxia: Plan: Remains stable (24) COPD (chronic obstructive pulmonary disease): Plan: Has been receiving IV hydrocortisone as a stress dose No acute exacerbation (25) Restrictive lung disease: Plan: -Place patient on BiPAP-noted in her heart that she wears CPAP, unknown settings at this time -ABG reviewed: pH 7.32, PCO2 54, PO2 76, HCO3 28 -Patient was reportedly vomiting per nursing, monitor for aspiration -Aspiration precautions -CXR reviewed showing cardiomegaly with pulmonary vascular congestion, interstitial coarsening suggestive of mild pulmonary edema, left hemidiaphragmatic elevation, probable small left pleural effusion with mild left lung base opacity -Breath sounds are worse on the right side at time of my exam - concern for aspiration -Pt as on doxycycline course to finish abx for treatment of LLL pneumonia s/p hospital stay at [facility] prior to her stay at [facility] (26) C. difficile diarrhea: Plan: -Unable to take p.o. vanc 125 mcg daily, started at the end of January,course to continue through 03/16 - Vanc retention enema daily in the meantime - Contact precaution -We will continue suppressive dose of vancomycin as before (27) Iron deficiency: Plan: - Chronic, stable, is on IV iron q7D as outpatient DVT ppx: - teds, scds, obtain LP today, then resume chemical ppx -Resumed heparin as preventive dose of anticoagulation CODE: Full Code Dispo: From home, likely to remain in the hospital x 1-2 days Get PT and OT evaluation Will be discharged to [facility] this afternoon Admission and Anticipated Discharge Date Admission Date: February 21, 2023 Total Time Total Time Spent Total Time Spent (In Minutes): 40 minutes Discharge Plan Discharge Items Patient Disposition: Transfer Inpatient Rehab Fac Reason For Visit: SEIZURE Discharge Diagnosis: Seizures, end-stage renal disease on hemodialysis, 1 out of 2 bottles of gram- positive cocci bacteremia, type 2 diabetes, COPD, paroxysmal atrial fibrillation not on any anticoagulation Condition on Discharge: Good Activity: Resume your previous activity Non-emergency contact: Primary Care Provider Call non-emergency contact if: you have any medication questions and your symptoms worsen Follow-up/Referrals: [facility] [Primary Care Provider] - Diet: Carb Consistent or DM2 and Dialysis Renal Fluids: 1500ml (6 cups) Addtl Attending Provider Instructions: Please take precautions to avoid falls Take your seizure medications as advised Continue with your dialysis as planned Please give appointment with your healthcare providers Addtl Health Information Assistant Provider Instructions: Please make an appointment with the neurologist Dr. Navarrete or his PA in about 3 to 4 weeks Pending Studies at Discharge: No Stand-Alone Forms: My [facility] Skilled Items Patient informed of condition?: Yes DNR: No Discharge Level of Care: Acute rehab Communicable Disease: No Discharge Prognosis: Stable Lines: None Urinary Catheter: No Medications and DC Order Prescriptions: New levetiracetam [Keppra] 500 mg Tablet 1,000 mg PO QAM Qty: 30 0RF Continued benzonatate 100 mg Capsule 100 mg PO BID B complex with C 20-folic acid 1 mg Capsule 1 cap PO QAM rosuvastatin [Crestor] 10 mg Tablet 10 mg PO PM albuterol sulfate 2.5 mg/0.5 mL Solution For Nebulization 2.5 mg INHALATION TID PRN (Reason: Wheezing) levalbuterol tartrate [Xopenex HFA] 45 mcg/actuation Hfa Aerosol Inhaler 2 inh INHALATION Q6H sennosides-docusate sodium [Senokot-S] 8.6-50 mg Tablet 1 tab PO USEASDIRECTD PRN (Reason: Constipation) Rx Instructions: AT LUNCH bisacodyl 10 mg Suppository [address] DAILY PRN (Reason: Constipation) Fleet Enema 19-7 gram/118 mL Enema [address] DAILY PRN (Reason: Constipation) docusate sodium 100 mg Capsule 100 mg PO BID polyethylene glycol 3350 [Miralax] 17 gram/dose Powder 17 g PO DIRECTED PRN (Reason: CONSTI) Rx Instructions: At lunch ondansetron 4 mg Tablet,Disintegrating 4 mg PO Q4H PRN (Reason: NAUSEA) dextrose 50 % in water (D50W) Syringe 50 ml IV DIRECTED PRN (Reason: Hypoglycemia) Rx Instructions: 25 GM= 50 ML dextrose 50 % in water (D50W) Syringe 25 ml IV DIRECTED PRN (Reason: Hypoglycemia) Rx Instructions: 12.5 GM= 25 ML Milk of Magnesia 30 ml PO DAILY PRN (Reason: Constipation) propafenone 150 mg Tablet 150 mg PO Q12H prednisone 10 mg Tablet 10 mg PO DAILY atorvastatin 20 mg Tablet 20 mg PO PM insulin glargine [Lantus U-100 Insulin] 100 unit/mL Solution 12 unit SUBCUT QAM heparin (porcine) 7,500 unit/mL Syringe 7,500 unit Q12H midodrine 5 mg tablet 10 mg PO TID allopurinol [Zyloprim] 100 mg Tablet 100 mg PO Q2D vancomycin 125 mg Capsule 125 mg PO DAILY Rx Instructions: Started 02/14, stop date 03/16/23 pantoprazole 20 mg Tablet,Delayed Release (Dr/Ec) 20 mg PO DAILY Rx Instructions: Started 02/20/23 ropinirole 0.25 mg Tablet 0.25 mg PO BID montelukast 10 mg tablet 10 mg PO DAILY metoprolol succinate 25 mg Tablet Extended Release 24 Hr 12.5 mg PO Q12H calcitriol 0.25 mcg Capsule 0.25 mcg PO UD Rx Instructions: MWF Saccharomyces boulardii 250 mg Capsule 250 mg PO BID darbepoetin ulises in polysorbat 40 mcg/0.4 mL Syringe 40 mcg subcut Q7D acetylcysteine 600 mg Capsule 600 mg PO DAILY roflumilast 500 mcg Tablet 500 mcg PO DAILY Trulicity 0.75 mg/0.5 mL pen injector 0.75 mg SUBCUT WK Trelegy Ellipta 100-62.5-25 mcg blister with device 1 inh INHALATION DAILY multivitamin Tablet 1 tab PO DAILY loperamide 2 mg Capsule 4 mg PO BID PRN (Reason: Loose Stool) pregabalin 25 mg Capsule 25 mg PO DAILY sodium chloride 0.9 % Piggyback 1,000 ml IV DAILY PRN (Reason: OTHER) Rx Instructions: PRN DIALYSIS DATED 02/14/23 sodium chloride 0.9 % Piggyback 0 ml IV DIRECTED Rx Instructions: DATED 02/19/23 dextrose 50 % in water (D50W) 0 mg IV DIRECTED PRN (Reason: Hypoglycemia) Rx Instructions: LISTED TWICE ON MEDICATION FORM. glucagon 1 mg INJ DIRECTED PRN (Reason: Hypoglycemia) Rx Instructions: 1 MG= 1 EA sodium chloride 0.9 % 0 ml IV DIRECTED Rx Instructions: DATED 02/16/23 Discontinued doxycycline hyclate 100 mg Capsule 100 mg PO BID Rx Instructions: Start 02/13 x 10 days, stop 02/23/23 Discharge Orders: Discharge Order (Routine); Ordered 02/26/23 Ordered By: Jessica Jauregui/Other Patient Handouts: Managing Type 2 Diabetes Admission Data Admit Date/Time: 02/21/23 10:07 Attending Provider: Jessica Hyman Admit Provider: Arabella Oleary Primary Care Provider: [facility] Other Providers: Arabella Oleary ; Silvia Armstrong ; Peterson Whitt ; Palmira Victor ; Robbi Phan I. ; Ash Pauilno II ; Yamel Franco ; Maykel Vann ; Marco Guthrie ; Donna Rabago ; Moe Garces ; Raffaele Navarrete ; [facility] Other Interventions: Discharge Summary Assessment (RN) Last Done: 02/26/23 15:09
== END 2023-02-26 16:05 | DRG 100 ==
LOC: EDBD → ED 07:59 → MERGE 10:07 → SUATTDRO 10:07 → 1E 10:07 → 2S 02-24 22:03